=== PATIENT | male | born 1945 | race Caucasian/White ===

== ENCOUNTER 2024-09-17 10:46 | Inpatient (IN) | payer MEDICARE, SELFPAY ==
--- NOTE | ~2024-09-17 | XR_ITS ---
EXAMINATION: XR chest PICC line DATE: 09/17/2024 12:45 INDICATION: Verify PICC line placement TECHNIQUE: frontal view of the chest was obtained. COMPARISON: None FINDINGS: Right upper extremity peripherally inserted central venous catheter (PICC) tip at the high right atr ium. Airspace opacities throughout the right lung, groundglass in the upper lung and more dense jodee cons olidation in the lower lung zone consistent with likely moderate-sized posterior layering pleural eff usions with associated atelectasis and/or pneumonia. Similar opacity left mid and lower lung zone wit h retrocardiac consolidation consistent with small left pleural effusion and associated basilar atele ctasis and/or pneumonia. Calcified nodule at the right lung base and calcified mediastinal lymph node s consistent with old granulomatous disease. No pneumothorax. Heart size is normal. Plain screw fixat ion for lower cervical anterior spinal fusion. IMPRESSION: 1. Moderate-sized right and small left pleural effusions with associated atelectasis and/or pneumonia in the lower lung zones. Reviewed, dictated and finalized at location A. IMPRESSION: 1. Moderate-sized right and small left pleural effusions with associated atelec tasis and/or pneumonia in the lower lung zones.
--- NOTE | ~2024-09-17 | CT_ITS ---
CTA chest PE abdomen pel Ordering provider: Felipe Knight MD History: . Chest pain . Comparison: None. Technique: CT angiogram chest was performed following timed intravenous injection of contrast. Thin s lice axial images and reformatted coronal images were obtained. Three dimensional reformatted images of the chest were also obtained using a All[employer] workstation. Also, CT of the abdomen and pelvis was pe rformed with IV contrast. . Automated exposure control and iterative reconstruction technique were e mployed. The dose-length product was 2114.95 mGy-cm. 100 mL Omnipaque 350 was given IV. FINDINGS: CHEST: --PULMONARY ARTERIES: No pulmonary embolus. --VISUALIZED THORACIC INLET: Prominent right thyroid with extension posteriorly. Parathyroid adenoma cannot be excluded. Ultrasound evaluation advised. --MEDIASTINUM: Aorta/coronary arteries: Mild atheromatous disease. Heart/other: The heart is slightly enlarged. . Lymph nodes: No mediastinal or hilar adenopathy. Right central line is seen with the tip in the right atrium. Calcified cyst subcarinal lymph nodes ar e noted. --LUNGS: Bilateral large pleural effusion more on the right side with adjacent atelectasis. No pulmonary nodul es or masses. No pneumothorax. Patchy opacities seen in the left upper lobe and lingula suggestive of pneumonia. --MUSCULOSKELETAL: Bones: Age appropriate degenerative changes of the spine. Superficial soft tissues: The superficial soft tissues are normal. ABDOMEN/PELVIS: --MUSCULOSKELETAL: Superficial soft tissues: Fat stranding seen in the subcutaneous tissues suggestive of overload fluid . Bilateral fat containing inguinal hernias is noted. The superficial soft tissues are normal. Bones: Age appropriate degenerative changes of the spine. --UPPER ABDOMINAL ORGANS: Liver: Normal. Gallbladder: Status post cholecystectomy. Spleen: Normal. Calcified granulomas. Stomach/duodenum: Normal. Pancreas: Atrophic. Adrenals: Small left adrenal adenoma. No follow-up advised unless clinically warranted. Kidneys: Very large left mid pole cyst measuring 9.6 x 8.8 cm. Tiny cysts seen in the left kidney low er pole and left kidney mid and upper pole. Small cyst seen in the right kidney upper pole measuring 3.5 cm. Tiny cyst seen in the right kidney lower pole. Minimal fullness of the right renal pelvis is seen with no ureteric stones. --PELVIC ORGANS: The bladder is underfilled with Barros's catheter seen in the gallbladder. Thickened wall of the urinary bladder is seen. Evaluation for cystitis advised. Hyperdense area seen in the right side of the urinary bladder which may be a stone or mass or hematom a. This area measures 1.3 x 0.9 cm. Cystoscopy is advised. --BOWEL AND MESENTERY: Colon: No evidence of diverticulitis.. Contrast is seen in the colon. No evidence of appendicitis. Small Bowel: Normal. No obstruction. Peritoneum/mesentery: No free air. Minimal free fluid is seen in the pelvis and left paracolic gutter and around the spleen clinical correlation and follow-up advised. No mesenteric lymphadenopathy. --RETROPERITONEUM: Mild atheromatous disease of the abdominal aorta. No retroperitoneal lymphadenop athy. IMPRESSION: CHEST: 1. Large bilateral pleural effusion more on the right side with adjacent atelectasis. 2. No pulmonary embolism. 3. Multiple patchy groundglass opacities in the left upper lobe suggestive of pneumonia. ABDOMEN/PELVIS: 1. No evidence of appendicitis, diverticulitis or intestinal obstruction. 2. Fluid seen in the pelvis and left paracolic gutter. Clinical correlation and follow-up advised. 3. Hyperdense area in the right side of the urinary bladder. Cystoscopy is advised. The differential include hematoma versus stones versus mass. 4. Bilateral renal cysts with the largest in the left kidney midpole. 5. Atrophic pancreas. Reviewed, dictated and finalized at location A. IMPRESSION: CHEST: 1. Large bilateral pleural effusion more on the right side with adjacent atele ctasis. 2. No pulmonary embolism. 3. Multiple patchy groundglass opacities in the left upper lobe suggestive of pneumonia. ABDOMEN/PELVIS: 1. No evidence of appendicitis, diverticulitis or intestinal obstruction. 2. Fluid seen in the pelvis and left paracolic gutter. Clinical correlation an d follow-up advised. 3. Hyperdense area in the right side of the urinary bladder. Cystoscopy is adv ised. The differential include hematoma versus stones versus mass. 4. Bilateral renal cysts with the largest in the left kidney midpole. 5. Atrophic pancreas.
--- NOTE | 2024-09-17 11:08 | ECG_ITS ---
Test Date: 2024-09-17 13:57:31 Measurements Intervals [place] Rate: 95 P: 84 ME: 183 QRS: -37 QRSD: 166 T: 68 QT: 392 QTc: 495 Interpretive Statements SINUS RHYTHM LEFT AXIS DEVIATION [QRS AXIS < -30] LEFT BUNDLE BRANCH BLOCK [120+ ms QRS DURATION, 80+ ms Q/S IN V1/V2, 85+ ms R IN I/aVL/V5/V6] ABNORMAL ECG No previous ECG available for comparison Electronically Signed On 09-17-2024 16:15:22 CDT by Delvis Armenta M.D.
--- NOTE | 2024-09-17 11:44 | PC.NURSE ---
pt refusing ekg, demanding pain meds. edp made aware
--- NOTE | 2024-09-17 11:58 | PC.NURSE ---
pt is still currently refusing EKG
--- NOTE | 2024-09-17 12:02 | PC.NURSE ---
pt is also refusing XR for PICC verification.
--- NOTE | 2024-09-17 12:34 | ED_ITS ---
HPI - General Adult General Chief complaint: Chest Pain Stated complaint: cp Time Seen by Provider: 09/17/24 12:00 History of Present Illness HPI narrative: Patient is an 79-year-old male who presents to the ER with reports of left-sided chest pain. Reports he he transferred to his bed when he developed sharp left- sided chest pain. He is no longer having pain. Patient knows he is in that he is at a hospital. He cannot tell me how he transferred. He says he can get up and move on his own but patient is clearly bedbound with edema and all of his extremities, cushion boots to prevent sores, and is chronically ill with a PICC line. According to his nursing facility he has heart failure and recently had septic shock and is still getting vancomycin and Rocephin infusions. Patient provide no history about his overall health. He is particularly cantankerous and uncooperative. Initially refusing blood work and imaging. Patient was in intermediate in [facility]. Developed septic shock likely from sacral decubitus ulcer. He had surgical debridement at [facility]. He was then sent down to a intermediate here because his sister lives down here at the his POA lives in [place]. Review of Systems 2 Review of Systems: ROS unobtainable: Yes unobtainable due to mental status PMFSH Past Medical History Medical History (Updated 09/17/24 @ 18:23 by Felipe Knight MD) Gastric ulcer Type 2 diabetes mellitus Hypercholesterolemia Hypothyroidism CVA (cerebral vascular accident) BPH (benign prostatic hyperplasia) Ischemic heart disease Heart failure Exam 2 Narrative: GENERAL: Chronically ill-appearing, well-nourished, and in no acute distress. HEAD: Normocephalic, atraumatic. ENT: Mucous membranes moist. Neck: Supple CHEST: Clear to auscultation. No respiratory distress. HEART: Regular rate and rhythm. Normal peripheral pulses. ABDOMEN: Soft, nontender, nondistended. EXTREMITIES: No deformity of the extremities but is chronically weak. 4+ edema. Right upper extremity PICC line. SKIN: Warm, dry, no rash. Prominent sacral decubitus ulcer with a 1.5 cm diameter hole without using. There is stool contaminant around the area. There is bruising surrounding this ulcer as well. NEURO: Alert and oriented x1-2. Course Course Emergency Course: Admit to hospitalist service. Will need diuresis. I have been on the phone with patient's CARLOS ALBERTO Maryuri Galindo. We have discussed the patient's previous history and his current condition. She was unaware that hospice had been out to evaluate the patient last week. Patient does not have decision-making capacity. She does think having hospice evaluation would be reasonable given his advanced illness and the fact that he does not particularly like getting medical care. We will diurese him here. She does not think he would tolerate a thoracentesis. Patient is a DNR. Continue vancomycin and Rocephin. Will have care coordination consulted. Vital Signs Vital signs: Vital Signs Pulse Oximetry 97 09/17/24 15:17 Oxygen Delivery Room Air 09/17/24 15:17 Pulse Oximetry 97 09/17/24 15:17 Oxygen Delivery Room Air 09/17/24 15:17 Medical Decision Making Vital Signs Vital Signs: Vital Signs Pulse Oximetry 97 09/17/24 15:17 Oxygen Delivery Room Air 09/17/24 15:17 Pulse Oximetry 97 09/17/24 15:17 Oxygen Delivery Room Air 09/17/24 15:17 Lab Data 09/17/24 13:10 09/17/24 13:10 Labs: Lab Results 09/17/24 09/17/24 Range/Units 13:10 15:30 WBC 10.8 H (4.5-10.0) K/mm3 RBC 2.59 L (4.6-6.20) M/mm3 Hgb 7.8 L (14.0-18.0) g/dL Hct 25.5 L (42.0-52.0) % MCV 98.5 (80-100) fl MCH 30.1 (26-34) pg MCHC 30.6 L (32-36) g/dl RDW 21.0 H (11.5-14.5) % Plt Count 117 L (150-375) k/mm3 MPV 11.7 H (7.4-10.4) fl Immature Gran % (Auto) 1.9 H (0-0.5) % Neut % (Auto) 82.7 H (45.5-73.1) % Lymph % (Auto) 7.5 L (18.3-44.2) % [place] % (Auto) 6.7 (2.6-8.5) % Eos % (Auto) 0.6 (0-4.4) % Baso % (Auto) 0.6 (0.2-1.2) % Lymph # (Auto) 0.81 L (0.9-3.2) K/mm3 [place] # (Auto) 0.7 H (0.1-0.6) K/mm3 Eos # (Auto) 0.1 (0-0.3) K/mm3 Baso # (Auto) 0.1 (0.0-0.1) K/mm3 Abs Immat Gran (auto) 0.20 H (0.00-0.031) K/mm3 Absolute Neuts (auto) 8.9 H (1.3-6.7) K/mm3 Absolute Nucleated RBC 0.000 (0.0-0.012) K/mm3 Nucleated RBC % 0.0 (0.0-0.2) % % Immature Plt Fraction 7.8 (0.9-11.2) % PT 21.1 H (11.1-14.7) Seconds INR 1.8 APTT 33.8 (22.3-36.8) Seconds Sodium 132 L (137-145) mmol/L Potassium 3.4 (3.4-5.0) mmol/L Chloride 100 (98-107) mmol/L Carbon Dioxide 25 (22-30) mmol/L Anion Gap 7 (4-12) mmol/L BUN 7 L (9-20) mg/dL Creatinine 0.54 L (0.7-1.3) mg/dL Estim Creat Clear Calc Not Reportable Estimated GFR > 60 (59 - ) Glucose 120 H (65-110) mg/dL Calcium 8.0 L (8.4-10.2) mg/dL Total Bilirubin 1.1 (0.2-1.3) mg/dL AST 24 (17-59) U/L ALT 15 (6-50) U/L Alkaline Phosphatase 153 H (38-126) U/L Troponin I 0.020 0.020 (0.000-0.034) ng/mL NT-Pro-B Natriuret Pep 54006 H (19.9-100) pg/mL Total Protein 6.0 L (6.3-8.2) g/dL Albumin 2.5 L (3.5-5.1) g/dL Discharge Plan Discharge Clinical Impression: Anasarca, Pneumonia, Pleural effusion, Chronic ulcer of sacral region Patient Disposition: Still a Patient Condition: Stable Patient Language: Slovenian Follow-up/Referrals: PHYSICIAN NOT ON STAFF,NONSTAFF [Primary Care Provider] -
--- OUTSIDE RECORDS SUMMARY | 2024-09-17 12:36 | XMS_ITS | Encounter Summary ---
Author Organization [facility] Address [address] [place] [id number] Care Team Providers Care Assembler Arranger Name Role Phone Esa Guaman MD Primary Care Provider [phone] Kal Harman MD Primary Care Provider Unavailabl Marina Leonardo MD Primary Care Provider [phone] None, Provider Primary Care Provider Unavaila Aly Mosley DO Primary Care Provider [phone] Babs Wu MD Primary Care Provider [phone] Scotty Leach MD Primary Care Provider [phone] Tesfaye Fuller MD Unavailable [phone] None, Provider Primary Care Provider Unavaila Peter Dewitt MD Unavailable [phone] Ross Negro MD Primary Care Provider [phone] Saturnino KIRBY MD, Randy K Unavailable [phone] Encounter Details Date Type Department Care Team (Late st Contact Info) Description 09/10/[address] [facility] Conversion [address], [place] [address] , Generic Conversion, Social History Tobacco Use Types Packs/Day Years Used Date Smoking Tobacco: Former Sex and Gender Information Value Date Recorded Sex Assigned at Male 06/10/2024 12:49 AM PRINCIPAL TECHNICAL ARCHITECT Legal Sex Male 8:36 PM CDT Gender Identity Not on file Sexual Orientation Not on file documented as of this encounter Plan of Treatment Upcoming Encounters Date Type Department Care Team (Late st Contact Info) Description 09/21/2024 2:20 PM CDT Telemedicine [facility] [address] [place] [address] Eligio Rousseau MD [address] [place] [address] documented as of this encounter Visit Diagnoses Not on filedocumented in this encounter Additional Health Concerns Infection Onset Date Last Indicated Resolved Time COVID-19 Rule Out 07/11/2023 07/11/2023 07/11/2023 9:03 PM PRINCIPAL TECHNICAL ARCHITECT COVID-19 Rule Out 06/10/2024 06/10/2024 06/10/2024 2:08 AM PRINCIPAL TECHNICAL ARCHITECT Respiratory Rule Out 08/26/2024 08/26/2024 025 1:36 PM CDT COVID-19 Rule Out 08/26/2024 08/26/2024 08/26/2024 1:36 PM CDT documented as of this encounter Care Teams Assembler Arranger Relationship Specialty Start Date End Date Esa Guaman MD PCP - General FAMILY PRACTICE 09/08/18 09/08/18 Kal Harman MD PCP - General FAMILY PRACTICE 09/09/18 05/31/19 Marina Salas MD [address] [place] [address] PCP - General DERMATOLOGY 07/28/19 01/09/20 Michael Renee MD PCP - General 06/01/19 07/27/19 Aly Escobedo DO [address] [place] [id number] PCP - General FAMILY PRACTICE 02/24/20 02/03/21 Babs Wu MD [address] [place] [id number] PCP - General FAMILY PRACTICE 02/04/21 04/02/22 Scotty Leach MD [address] [place] [address] PCP - General INTERNAL MEDICINE 04/03/22 08/24/23 Michael Renee MD PCP - General UNKNOWN PHYSICIAN SPECIALTY 08/25/23 06/03/24 Ross Negro MD [address] [place], [place] [id number] PCP - General INTERNAL MEDICINE 06/04/24 Tesfaye Fuller MD [address] [place] [address] Consulting Physician CARDIOVASCULAR DISEASE 08/20/23 Peter Armstrong MD [address] [place] [phone] Consulting Physician CARDIOVASCULAR DISEASE 09/14/23 Benjamin Matamoros II, MD [address] [place] [address] [address] [place] [address] Consulting Physician UROLOGY 08/27/24 documented as of this encounter
--- OUTSIDE RECORDS SUMMARY | 2024-09-17 12:36 | XMS_ITS | Clinical Summary ---
Author Organization [facility] Address [address] [place] [address] Care Team Providers Care Tomography Technologist Name Role Phone Tesfaye Fuller MD Unavailable [phone] Peter Armstrong MD Unavailable [phone] Ross Mcmahan MD Primary Care Provider [phone] Saturnino KIRBY MD, Benjamin Montalvo Unavailable [phone] Allergies Active Allergy Reactions Criticality Noted Date Comments Aspirin Nausea Only 09/17/2018 Gabapentin Other (see comment) 05/30/2019 Feels it caused fatty liver. Stomach pain went away. Metformin Other (see comment) Low 10/12/2018 Stomach pain with XR 500 mg once a day. Simvastatin Swelling 10/12/2015 Medications amiodarone (PACERONE) 200 MG tablet Take 1 tablet (200 mg total) by mouth daily. 30 tablet 11 4 Active empagliflozin (JARDIANCE) 10 MG tablet Take 1 tablet (10 mg total) by mouth daily. 30 tablet 2 4 Active furosemide (LASIX) 20 MG tablet Take 1 tablet (20 mg total) by mouth daily. 4 Active levothyroxine (SYNTHROID) 50 MCG tablet Take 1 tablet (50 mcg total) by mouth every morning. Active vitamin D3 10 mcg tablet Take 1 tablet (10 mcg total) by mouth daily. Active vitamin B-12 (CYANOCOBALAMI N) 500 MCG tablet Take 1 tablet (500 mcg total) by mouth daily. Active atorvastatin (LIPITOR) 40 MG tablet Take 1 tablet (40 mg total) by mouth nightly at bedtime. 30 tablet 5 5 Active multi vitamin/minera ls (THERA-M ENHANCED) tablet Take 1 tablet by mouth daily. Active sucralfate (CARAFATE) 1 G tablet Take 1 tablet (1 g total) by mouth 4 (four) times daily before meals and nightly. 120 tablet 6 5 Active pantoprazole EC (PROTONIX) 40 MG tablet Take 1 tablet (40 mg total) by mouth 2 (two) times daily. 60 tablet 6 5 Active calcium carbonate-mary grace min D (OSCAL + D) 500-5 MG-MCG Tab tablet Take 1 tablet by mouth 2 (two) times daily. 60 tablet 2 5 Active donepezil (ARICEPT) 5 MG Tab Take 1 tablet (5 mg total) by mouth nightly at bedtime. 30 tablet 2 5 Active insulin regular (NOVOLIN R/HUMULIN R) 100 UNIT/ML injection Inject 1-8 Units into the skin 4 (four) times daily before meals and nightly. 100 mL 5 Active magnesium oxide (MAG-OX) 400 (240 Mg) MG tablet Take 1 tablet (400 mg total) by mouth 2 (two) times daily. 30 tablet 5 Active midodrine (PROAMATINE) 10 MG tablet Take 1 tablet (10 mg total) by mouth 3 (three) times daily with meals for 30 days. 90 tablet 5 10/07/19 25 Active potassium chloride CR (KLOR-CON M) 20 MEQ tablet Take 2 tablets (40 mEq total) by mouth daily. 60 tablet 5 Active pantoprazole (PROTONIX) 40 MG packet Take 1 packet by mouth 2 (two) times daily. 30 tablet 2 5 Active cefTRIAXone 2 g in sodium chloride 0.9 % SOLN 50 mLIndications: Septic shock (CMS/HCC HHS/HCC) Inject 2 g into the vein daily for 29 days. 29 Bag 5 10/07/19 25 Active vancomycin 1750 mg in IV solution 350 mL IVPB (XELLIA) Inject 350 mLs (1,750 mg total) into the vein daily for 27 days. 9450 mL 5 10/06/19 25 Active rivaroxaban (XARELTO) 20 MG Tab tablet Take 1 tablet (20 mg total) by mouth daily with supper. Take with food 30 tablet 11 4 08/23/19 25 Discontinue d(Stop Taking at Discharge) sacubitril-junior sartan (ENTRESTO) 24-26 MG tablet Take 1 tablet by mouth 2 (two) times daily. 60 tablet 1 4 09/08/19 25 Discontinue d(Stop Taking at Discharge) spironolactone (ALDACTONE) 25 MG tablet Take 1 tablet (25 mg total) by mouth daily. 30 tablet 1 4 09/08/19 25 Discontinue d(Stop Taking at Discharge) gabapentin (NEURONTIN) 100 MG capsule Take 2 capsules (200 mg total) by mouth 2 (two) times daily. 60 capsule 09/08/19 25 Discontinue d(Stop Taking at Discharge) divalproex EC (DEPAKOTE) 250 MG tablet Take 1 tablet (250 mg total) by mouth 2 (two) times daily. 60 tablet 5 08/23/19 25 Discontinue d(Stop Taking at Discharge) acetaminophen (TYLENOL) 500 MG tablet Take 1 tablet (500 mg total) by mouth every 6 (six) hours as needed for Pain. 08/27/19 Discontinue d(Error) aspirin 81 MG chewable tablet Chew 1 tablet (81 mg total) by mouth daily. 08/23/19 Discontinue d(Stop Taking at Discharge) vitamin C (ASCORBIC ACID) 500 MG tablet Take 1 tablet (500 mg total) by mouth daily. 08/27/19 Discontinue d(Error) acetaminophen (TYLENOL) 325 MG tablet Take 2 tablets (650 mg total) by mouth every 4 (four) hours as needed for Pain. 09/08/19 Discontinue d(Stop Taking at Discharge) acetaminophen (TYLENOL) 500 MG tablet Take 1 tablet (500 mg total) by mouth every 6 (six) hours as needed. 30 tablet 5 09/17/19 25 collagenase (SANTYL) ointment Apply topically 2 (two) times daily for 10 days. 15 g 5 09/17/19 25 Active Problems Problem Noted Date Diagnosed Date Septic shock ([facility]) 08/26/2024 Hypovolemic shock ([facility]) 08/16/2024 Aspiration pneumonia ([facility]) Abdominal pain 09/13/2023 Acute exacerbation of CHF (c ongestive heart failure) ([facility]) 09/05/2023 CHF exacerbation ([facility]) 08/26/2023 SOB (shortness of breath) 08/26/2023 Syncope 07/27/2023 Chronic combined systolic an d diastolic congestive heart failure ([facility]) 07/15/2023 Fall 02/17/2023 Mild anemia 02/04/2021 Prostatic hypertrophy 02/04/2021 Facial pain, acute 02/04/2021 Basal cell carcinoma (BCC) of skin of scalp and neck 09/07/2019 Nonalcoholic hepatosteatosis 06/07/2019 Vitamin D deficiency 05/30/2019 Electrocution and nonfatal e ffects of electric current, sequela 09/17/2018 Overview (09/17/2018): 1990s Essential hypertension 09/17/2018 Cerebrovascular accident (CV A), unspecified mechanism ([facility]) 09/17/2018 Overview (09/17/2018): 09/17/18 declines antiplatelet and antilipemic. Hypercholesterolemia 09/17/2018 Overview (09/17/2018): 09/17/18 declines antilipemic Type 2 diabetes mellitus wit hout complication, without long-term current use of insulin ([facility]) 09/17/2018 Resolved Problems Problem Noted Date Diagnosed Date Resolved Date PNA (pneumonia) 07/11/2023 07/12/2023 Health care maintenance 02/04/202102/01 Need for immunization against influenza 02/04/2021 02/11/2021 Screening for prostate cancer 02/04/2021 02/11/2021 Chest pain 05/30/2019 05/30/2019 Epigastric pain 05/30/2019 05/30/2019 Right upper quadrant pain 05/30/2019 Gastrointestinal hemorrhage 05/30/2019 05/30/2019 Aortic valve stenosis 05/30/20192019 Encounters Date Type Department Care Team Description 09/12/2024 Telephone [facility] [address] [place] [phone] Hasmukh Goss MD Appointment Request 09/07/2024 Travel 08/26/2024 11:58 AM CDT - 09/07/2024 12:33 PM CDT Hospital Encounter [facility] [address] [place] [address] Marino Lyn MD Bukhari, Faisal, MD Altered Mental Status Discharge Disposition: Half-Way Facility 08/26/2024 Travel 08/24/2024 1:00 PM CDT - 08/24/2024 11:59 PM CDT Hospital Encounter [facility] [address] [place] [place] [address] Ross Mcmahan MD Discharge Disposition: Home or Self Care (Routine Discharge) 08/17/2024 12:21 PM CDT Anesthesia Event [facility] [address] [place] [address] Kris Urban MD Smith, Melissa Y, NINA 08/17/2024 12:15 PM CDT - 08/17/2024 1:02 PM CDT Surgery [facility] [address] [place] [address] Marysol Jules MD EGD WITH BIOPSY PER COLD FORCEP 08/16/2024 10:22 AM CDT - 08/22/2024 1:00 PM CDT Hospital Encounter [facility] [address] [place] [address] Marino Lyn MD Bukhari, Faisal, MD Weakness Discharge Disposition: Half-Way Facility 08/16/2024 Travel 08/03/2024 2:10 PM CDT - 08/03/2024 11:59 PM CDT Hospital Encounter [facility] [address] [place] [address] Ross Mcmahan MD Discharge Disposition: Home or Self Care (Routine Discharge) 07/19/2024 1:00 PM CDT Office Visit [facility] [address] [place] [phone] Faisal Carlos MD Shortness Of Breath (PFT + Walk testing) 07/19/2024 Travel 07/08/2024 5:06 PM [employer] - 07/08/2024 11:33 PM [employer] Emergency [facility] [address] [place] [address] Scotty Tamez MD Generalized Weakness Discharge Disposition: Half-Way Facility 07/08/2024 Travel 07/04/2024 Telephone [facility] [address] [place] [phone] Kristy Garcia, SCARF GLUER Reschedule 07/01/2024 2:51 PM [employer] - 07/01/2024 11:59 PM [employer] Hospital Encounter [facility] [address] [place] [address] Ross Mcmahan MD Discharge Disposition: Home or Self Care (Routine Discharge) 06/22/2024 9:20 AM [employer] Office Visit [facility] [address] [place] [phone] Faisal Carlos MD Follow Up (Hospital fu /) 06/22/2024 Travel 06/21/2024 Scan [facility] Scanned, [facility] 06/21/[address] [phone] Faisal Carlos MD Reschedule from Last 3 Months Immunizations Immunization Administration Dates Next Due Fluzone High Dose - >Age 65 (Prefilled Syringe) 02/04/2021,03/09/2019 Influenza (Generic) 01/26/2020,03/24/2017,2012 MODERNA COVID-19 (12+) MRNA, LNP-S, PF, 100 MCG/ 0.5 ML DOSE 02/12/2021 Pneumococcal (Pneumovax 23) 04/21/2017 Td (Tenivac) preservative free 01/26/1996,1990 Zoster (Zostavax) 60760 Unt/0.65Ml 05/01/2016 Family History Medical History Relation Comments Heart Attack Father Lung Cancer Father Relation Status Comments Father Mother Social History Tobacco Use Types Packs/Day Years Used Date Smoking Tobacco: Former Cigarettes 0.5 15 1 960 - 1974 Smokeless Tobacco: Never Tobacco Cessation:Counseling Given: Yes Comments:stopped 30 years ago Alcohol Use Standard Drinks/Week Comments No 0 (1 standard drink = 0.6 oz pur e alcohol) B1300 Health Literacy Answer Date Recor ded How often do you need to hav e someone help you when you read instructions, pamphlets, or other written material from your doctor or pharmacy? Never 09/07/2023 [facility] Utilities Answer Date Recorded In the past 12 months has e [employer] gas, oil, or water iYogi threatened to shut off services in your home? No 08/29/2024 Humiliation, Afraid, Rape, and Kick questionnair e Answer Date Recorded Within the last year, have y ou been afraid of your partner or ex-partner? No 08/29/2024 Within the last year, have y ou been humiliated or emotionally abused in other ways by your partner or ex-partner? No Within the last year, have y ou been kicked, hit, slapped, or otherwise physically hurt by your partner or ex-partner? No 08/29/2024 Within the last year, have y ou been raped or forced to have any kind of sexual activity by your partner or ex-partner? No 08/29/2024 Social Connection and Isolation Panel [NHANES] A nswer Date Recorded In a typical week, how many times do you talk on the phone with family, friends, or neighbors? Patient declined 10/14/2023 How often do you get togethe r with friends or relatives? Never 10/14/2023 How often do you attend mandaen or church serv ices? Never 10/14/2023 Do you belong to any clubs o r organizations such as mandaen groups, unions, fraternal or athletic groups, or school groups? No 10/14/2023 How often do you attend meet ings of the clubs or organizations you belong to? Never 10/14/2023 Are you , , di vorced, , never , or living with a partner? 10/14/2023 AUDIT-C Answer Date Recorded Q1: How often do you have a drink containing alcohol? Never 10/14/2023 Q2: How many drinks containi ng alcohol do you have on a typical day when you are drinking? Patient does not drink Q3: How often do you have si x or more drinks on one occasion? Never 10/14/2023 Overall Financial Resource Strain (CARDIA) Answe r Date Recorded How hard is it for you to pa y for the very basics like food, housing, medical care, and heating? Not hard at all 08/29/2024 PHQ-2 Answer Date Recorded Patient Health Questionnaire-2 Score 1 06/22/2024 [facility] Occup[facility] ional Health - Occupational Stress Questionnaire Answer Date Recorded Do you feel stress - tense, restless, nervous, or anxious, or unable to sleep at night because your mind is troubled all the time - these days? Only a little 10/14/2023 Exercise Vital Sign Answer Date Recorde d On average, how many days pe r week do you engage in moderate to strenuous exercise (like a brisk walk)? 0 days 10/14/2023 On average, how many minutes do you engage in exercise at this level? 0 min 10/14/2023 Hunger Vital Sign Answer Date Recorded Within the past 12 months, y ou worried that your food would run out before you got the money to buy more. Never true 08/30/19 25 Within the past 12 months, t he food you bought just didn't last and you didn't have money to get more. Never true 08/29/2024 PRAPARE - Transportation Answer Date Re corded In the past 12 months, has l ack of transportation kept you from medical appointments or from getting medications? No 08/03 In the past 12 months, has l ack of transportation kept you from meetings, work, or from getting things needed for daily living? No 08/29/2024 Housing Stability Vital Sign Answer Jose Juan e Recorded In the last 12 months, was t here a time when you were not able to pay the mortgage or rent on time? No 07/27/2023 In the last 12 months, how many places have you lived? 1 07/27/2023 In the last 12 months, was t here a time when you did not have a steady place to sleep or slept in a chcf (including now)? No 07/27/2023 Housing Stability Vital Sign Answer Jose Juan e Recorded In the last 12 months, was t here a time when you were not able to pay the mortgage or rent on time? No 08/29/2024 In the past 12 months, how m any times have you moved where you were living? 0 08/29/2024 At any time in the past 12 m [facility], were you homeless or living in a chcf (including now)? No 08/29/2024 Sex and Gender Information Value Date Recorded Sex Assigned at Male 06/10/2024 12:49 AM [employer] Legal Sex Male 8:36 PM CDT Gender Identity Not on file Sexual Orientation Not on file Last Filed Vital Signs Vital Sign Reading Time Taken Comments Blood Pressure 127/85 09/07/2024 11:00 AM CDT Pulse 84 09/07/2024 11:00 AM CDT Temperature 35.9 C (96.6 F) 09/07/2024 11:00 AM CDT Respiratory Rate 16 09/07/2024 11:00 AM CDT Oxygen Saturation 97% 09/06/2024 4:45 PM CDT Inhaled Oxygen Concentration - - Weight 86.9 kg (191 lb 9.3 oz) 09/02/2024 3:00 A M CDT Height 177.8 cm (5' 10 ) 08/26/2024 12:04 PM CDT Body Mass Index 27.49 08/26/2024 12:04 PM CDT Plan of Treatment Upcoming Encounters Date Type Department Care Team (Late st Contact Info) Description 09/21/2024 2:20 PM CDT Telemedicine [facility]ty [address] [phone] Hasmukh Goss MD [address] [place] [address] Health Maintenance Due Date Last Done Comments Kidney Health Evaluation 1943 Diabetes: Retinopathy Eye Exam 1961 DTaP, Tdap and Td Vaccines (1 - Tdap) 01/27/1996 01/26/1996, 10/22/1990 Annual Medicare Wellness Visit 01/06/2008 Zoster Vaccines (2 of 3) 06/26/2016 05/01/2016 RSV Immunization or 60+ Years (1 - 1-dose 75+ series) 2018 Pneumococcal Vaccine: 50+ Years (2 of 2 - PCV) 04/21/2018 04/21/2017 COVID-19 Vaccine (3 - season) 2024 03/20/2021, 02/12/2021 Hemoglobin A1C 12/29/2024 07/01/2024, 05/0 09/2023, 07/12/2023, Additional history exists Lipid Panel 07/01/2025 07/01/2024, 10/0 08/2020, 02/04/2021, Additional history exists PHQ-2 (Physician [place]) Completed 06/22/2024 Meningococcal B Vaccine Aged Out No l onger eligible based on patient's age to complete this topic Meningococcal Vaccine Aged Out No yoly trell eligible based on patient's age to complete this topic RSV Immunizations Under 20 Months Aged Out No longer eligible based on patient's age to complete this topic Procedures Procedure Name Priority Date/Time Associated Diagnosis Comments POCT GLUCOSE - NEWELL DOCKED DEVICE Routine 09/07/2024 10:38 AM CDT XA PICC Today 09/07/2024 9:25 AM CDT POCT GLUCOSE - NEWELL DOCKED DEVICE Routine 09/07/2024 6:46 AM CDT POCT GLUCOSE - NEWELL DOCKED DEVICE Routine 09/06/2024 2:55 PM CDT POCT GLUCOSE - NEWELL DOCKED DEVICE Routine 09/05/2024 4:09 PM CDT XR SPEECH SWALLOW SMD (MODIFIED BARIUM SWALLOW STUDY AKA DYLAN) Routine 09/05/2024 1:33 PM CDT POCT GLUCOSE - NEWELL DOCKED DEVICE Routine 09/05/2024 11:11 AM CDT POCT GLUCOSE - NEWELL DOCKED DEVICE Routine 09/05/2024 7:28 AM CDT POCT GLUCOSE - NEWELL DOCKED DEVICE Routine 09/04/2024 8:35 PM CDT POCT GLUCOSE - NEWELL DOCKED DEVICE Routine 09/04/2024 7:43 PM CDT POCT GLUCOSE - NEWELL DOCKED DEVICE Routine 09/04/2024 7:14 AM CDT POCT GLUCOSE - NEWELL DOCKED DEVICE Routine 09/03/2024 8:03 PM CDT POCT GLUCOSE - NEWELL DOCKED DEVICE Routine 09/03/2024 3:26 PM CDT POCT GLUCOSE - NEWELL DOCKED DEVICE Routine 09/03/2024 11:00 AM CDT POCT GLUCOSE - NEWELL DOCKED DEVICE Routine 09/03/2024 7:03 AM CDT CBC W/DIFF AUTOMATED Routine 09/03/2024 4:48 AM CDT VANCOMYCIN TIMED 09/03/2024 4:48 AM CDT CREATININE Routine 09/03/2024 4:48 AM CDT COMPREHENSIVE METABOLIC PANEL Routine 09/03/2024 4:48 AM CDT POCT GLUCOSE - NEWELL DOCKED DEVICE Routine 09/02/2024 8:05 PM CDT POCT GLUCOSE - NEWELL DOCKED DEVICE Routine 09/02/2024 4:46 PM CDT POCT GLUCOSE - NEWELL DOCKED DEVICE Routine 09/02/2024 11:42 AM CDT POCT GLUCOSE - NEWELL DOCKED DEVICE Routine 09/02/2024 8:00 AM CDT MAGNESIUM Routine 09/02/2024 4:41 AM CDT COMPREHENSIVE METABOLIC PANEL Routine 09/02/2024 4:41 AM CDT POCT GLUCOSE - NEWELL DOCKED DEVICE Routine 09/01/2024 11:05 PM CDT POCT GLUCOSE - NEWELL DOCKED DEVICE Routine 09/01/2024 5:16 PM CDT POCT GLUCOSE - NEWELL DOCKED DEVICE Routine 09/01/2024 1:14 PM CDT POCT GLUCOSE - NEWELL DOCKED DEVICE Routine 09/01/2024 6:55 AM CDT MAGNESIUM Routine 09/01/2024 4:36 AM CDT COMPREHENSIVE METABOLIC PANEL Routine 09/01/2024 4:36 AM CDT POCT GLUCOSE - NEWELL DOCKED DEVICE Routine 09/01/2024 2:48 AM CDT POCT GLUCOSE - NEWELL DOCKED DEVICE Routine 08/31/2024 7:49 PM CDT POCT GLUCOSE - NEWELL DOCKED DEVICE Routine 08/31/2024 4:11 PM CDT POCT GLUCOSE - NEWELL DOCKED DEVICE Routine 08/31/2024 12:31 PM CDT POCT GLUCOSE - NEWELL DOCKED DEVICE Routine 08/31/2024 7:13 AM CDT CULTURE, BACTERIA, BLOOD Routine 08/31/2024 4:28 AM CDT COMPREHENSIVE METABOLIC PANEL Routine 08/31/2024 4:28 AM CDT CBC W/DIFF AUTOMATED Routine 08/31/2024 4:28 AM CDT VANCOMYCIN TIMED 08/31/2024 4:28 AM CDT POCT GLUCOSE - NEWELL DOCKED DEVICE Routine 08/31/2024 2:28 AM CDT POCT GLUCOSE - NEWELL DOCKED DEVICE Routine 08/30/2024 7:11 PM CDT POCT GLUCOSE - NEWELL DOCKED DEVICE Routine 08/30/2024 4:20 PM CDT USE ECHO [employer] Today 08/30/2024 3: 43 PM CDT DEBRIDEMENT Routine 08/30/2024 1:04 PM CDT POCT GLUCOSE - NEWELL DOCKED DEVICE Routine 08/30/2024 11:11 AM CDT POCT GLUCOSE - NEWELL DOCKED DEVICE Routine 08/30/2024 6:38 AM CDT PHOSPHORUS, INORGANIC PHOSPHATE Routine 08/30/2024 4:25 AM CDT MAGNESIUM Routine 08/30/2024 4:25 AM CDT COMPREHENSIVE METABOLIC PANEL Routine 08/30/2024 4:25 AM CDT CBC W/DIFF AUTOMATED Routine 08/30/2024 4:25 AM CDT POCT GLUCOSE - NEWELL DOCKED DEVICE Routine 08/30/2024 2:21 AM CDT POCT GLUCOSE - NEWELL DOCKED DEVICE Routine 08/29/2024 7:45 PM CDT POCT GLUCOSE - NEWELL DOCKED DEVICE Routine 08/29/2024 4:59 PM CDT TROPONIN, QUANT STAT 08/29/2024 12:36 PM CDT LACTIC ACID STAT 08/29/2024 12:36 PM CDT COMPREHENSIVE METABOLIC PANEL STAT 08/29/2024 12:36 PM CDT CBC W/DIFF AUTOMATED STAT 08/29/2024 12:36 PM CDT POCT GLUCOSE - NEWELL DOCKED DEVICE Routine 08/29/2024 11:46 AM CDT POCT GLUCOSE - NEWELL DOCKED DEVICE Routine 08/29/2024 6:48 AM CDT CBC W/DIFF AUTOMATED Routine 08/29/2024 4:39 AM CDT MAGNESIUM Routine 08/29/2024 4:38 AM CDT VANCOMYCIN TIMED 08/29/2024 4:35 AM CDT COMPREHENSIVE METABOLIC PANEL Routine 08/29/2024 4:35 AM CDT POCT GLUCOSE - NEWELL DOCKED DEVICE Routine 08/29/2024 2:01 AM CDT POCT GLUCOSE - NEWELL DOCKED DEVICE Routine 08/28/2024 8:58 PM CDT POCT GLUCOSE - NEWELL DOCKED DEVICE Routine 08/28/2024 4:53 PM CDT POCT GLUCOSE - NEWELL DOCKED DEVICE Routine 08/28/2024 12:10 PM CDT POCT GLUCOSE - NEWELL DOCKED DEVICE Routine 08/28/2024 8:36 AM CDT POCT GLUCOSE - NEWELL DOCKED DEVICE Routine 08/28/2024 6:01 AM CDT VANCOMYCIN TIMED 08/28/2024 4:28 AM CDT LACTIC ACID TIMED 08/28/2024 4:28 AM CDT COMPREHENSIVE METABOLIC PANEL Routine 08/28/2024 4:28 AM CDT CBC W/DIFF AUTOMATED Routine 08/28/2024 4:28 AM CDT POCT GLUCOSE - NEWELL DOCKED DEVICE Routine 08/28/2024 2:23 AM CDT POCT GLUCOSE - NEWELL DOCKED DEVICE Routine 08/27/2024 10:11 PM CDT POCT GLUCOSE - NEWELL DOCKED DEVICE Routine 08/27/2024 4:21 PM CDT LACTIC ACID TIMED 08/27/2024 12:51 PM CDT POCT GLUCOSE - NEWELL DOCKED DEVICE Routine 08/27/2024 11:40 AM CDT FIBRINOGEN Routine 08/27/2024 10:12 AM CDT LACTIC ACID TIMED 08/27/2024 7:52 AM CDT POCT GLUCOSE - NEWELL DOCKED DEVICE Routine 08/27/2024 6:26 AM CDT PROTHROMBIN TIME, VENOUS Routine 08/27/2024 4:29 AM CDT VANCOMYCIN TIMED 08/27/2024 4:29 AM CDT COMPREHENSIVE METABOLIC PANEL Routine 08/27/2024 4:29 AM CDT CBC W/DIFF AUTOMATED Routine 08/27/2024 4:29 AM CDT LACTIC ACID TIMED 08/27/2024 3:39 AM CDT POCT GLUCOSE - NEWELL DOCKED DEVICE Routine 08/27/2024 1:57 AM CDT POCT GLUCOSE - NEWELL DOCKED DEVICE Routine 08/27/2024 12:12 AM CDT LACTIC ACID TIMED 08/26/2024 10:05 PM CDT POCT GLUCOSE - NEWELL DOCKED DEVICE Routine 08/26/2024 7:45 PM CDT LACTIC ACID W REFLEX (SEPSIS) TIMED 08/26/2024 5:28 PM CDT POCT GLUCOSE - NEWELL DOCKED DEVICE Routine 08/26/2024 5:14 PM CDT BLOOD GAS, ARTERIAL LAB Add-On 08/26/2024 3:10 PM CDT AMMONIA STAT 08/26/2024 2:54 PM CDT LACTIC ACID W REFLEX (SEPSIS) TIMED 08/26/2024 2:54 PM CDT XR CHEST PORTABLE STAT 08/26/2024 2:[address] CHEST+ABD+PEL WO CON STAT 08/26/2024 2:[address] HEAD WO CON STAT 08/26/2024 2:02 PM CDT CORONAVIRUS (COVID-19) ANTIGEN STAT 08/26/2024 1:08 PM CDT INFLUENZA A & B STAT 08/26/2024 1:08 PM CDT CULTURE, BACTERIA, BLOOD Routine 08/26/2024 1:00 PM CDT TYPE & SCREEN STAT 08/26/2024 12:48 PM CDT CULTURE, BACTERIA, BLOOD Routine 08/26/2024 12:33 PM CDT THYROID STIM HORMONE TSH STAT 08/26/2024 12:33 PM CDT MAGNESIUM STAT 08/26/2024 12:33 PM CDT PRO-BRAIN NATRIURETIC PEPTIDE STAT 08/26/2024 12:33 PM CDT PARTIAL THROMBOPLASTIN TIME,PTT STAT 08/26/2024 12:33 PM CDT PROTHROMBIN TIME, VENOUS STAT 08/26/2024 12:33 PM CDT TROPONIN, QUANT STAT 08/26/2024 12:33 PM CDT COMPREHENSIVE METABOLIC PANEL STAT 08/26/2024 12:33 PM CDT LACTIC ACID W REFLEX (SEPSIS) STAT 08/26/2024 12:33 PM CDT CBC W/DIFF AUTOMATED STAT 08/26/2024 12:33 PM CDT XR CHEST PORTABLE STAT 08/26/2024 12: 21 PM CDT HC URINALYSIS AUTO W/O MICRO STAT 08/26/2024 12:18 PM CDT ECG 12-LEAD Routine 08/26/2024 12:11 PM CDT COMPREHENSIVE METABOLIC PANEL Routine 08/24/2024 10:40 AM CDT Essential hypertension Hypercholesterolemia CBC, AUTO, NO DIFF Routine 08/24/2024 10 :40 AM CDT Essential hypertension Hypercholesterolemia POCT GLUCOSE - NEWELL DOCKED DEVICE Routine 08/22/2024 11:22 AM CDT POCT GLUCOSE - NEWELL DOCKED DEVICE Routine 08/22/2024 6:14 AM CDT HEMOGLOBIN AND HEMATOCRIT Routine 08/22/2024 5:06 AM CDT POCT GLUCOSE - NEWELL DOCKED DEVICE Routine 08/21/2024 9:00 PM CDT POCT GLUCOSE - NEWELL DOCKED DEVICE Routine 08/21/2024 3:49 PM CDT POCT GLUCOSE - NEWELL DOCKED DEVICE Routine 08/21/2024 10:38 AM CDT POCT GLUCOSE - NEWELL DOCKED DEVICE Routine 08/21/2024 6:29 AM CDT CBC W/DIFF AUTOMATED Routine 08/21/2024 5:41 AM CDT POCT GLUCOSE - NEWELL DOCKED DEVICE Routine 08/20/2024 8:18 PM CDT POCT GLUCOSE - NEWELL DOCKED DEVICE Routine 08/20/2024 3:58 PM CDT POCT GLUCOSE - NEWELL DOCKED DEVICE Routine 08/20/2024 11:03 AM CDT POCT GLUCOSE - NEWELL DOCKED DEVICE Routine 08/20/2024 7:12 AM CDT CBC, AUTO, NO DIFF Routine 08/20/2024 5: 33 AM CDT POCT GLUCOSE - NEWELL DOCKED DEVICE Routine 08/19/2024 8:02 PM CDT HEMOGLOBIN AND HEMATOCRIT TIMED 08/19/2024 6:00 PM CDT POCT GLUCOSE - NEWELL DOCKED DEVICE Routine 08/19/2024 4:24 PM CDT TRANSFUSE RED BLOOD CELLS Routine 08/19/2024 2:31 PM CDT TYPE & SCREEN Routine 08/19/2024 10:40 AM CDT POCT GLUCOSE - NEWELL DOCKED DEVICE Routine 08/19/2024 10:27 AM CDT TRANSFUSE RED BLOOD CELLS Routine 08/19/2024 7:01 AM CDT POCT GLUCOSE - NEWELL DOCKED DEVICE Routine 08/19/2024 6:21 AM CDT CBC, AUTO, NO DIFF Routine 08/19/2024 5: 44 AM CDT POCT GLUCOSE - NEWELL DOCKED DEVICE Routine 08/18/2024 7:42 PM CDT POCT GLUCOSE - NEWELL DOCKED DEVICE Routine 08/18/2024 3:29 PM CDT POCT GLUCOSE - NEWELL DOCKED DEVICE Routine 08/18/2024 12:13 PM CDT POCT GLUCOSE - NEWELL DOCKED DEVICE Routine 08/18/2024 7:40 AM CDT PROTHROMBIN TIME, VENOUS Routine 08/18/2024 12:42 AM CDT POCT GLUCOSE - NEWELL DOCKED DEVICE Routine 08/17/2024 9:20 PM CDT PROTHROMBIN TIME, VENOUS Routine 08/17/2024 6:10 PM CDT POCT GLUCOSE - NEWELL DOCKED DEVICE Routine 08/17/2024 5:26 PM CDT POCT GLUCOSE - NEWELL DOCKED DEVICE Routine 08/17/2024 3:31 PM CDT UPPER GI ENDOSCOPY,BIOPSY 08/17/2024 12:06 PM CDT Anemia POCT GLUCOSE - NEWELL DOCKED DEVICE Routine 08/17/2024 11:49 AM CDT POCT GLUCOSE - NEWELL DOCKED DEVICE Routine 08/17/2024 4:27 AM CDT PROTHROMBIN TIME, VENOUS TIMED 08/17/2024 4:25 AM CDT COMPREHENSIVE METABOLIC PANEL Routine 08/17/2024 4:25 AM CDT CBC W/DIFF AUTOMATED Routine 08/17/2024 4:25 AM CDT PROTHROMBIN TIME, VENOUS STAT 08/17/2024 12:48 AM CDT PATHOLOGY Routine 08/17/2024 12:00 AM CDT POCT GLUCOSE - NEWELL DOCKED DEVICE Routine 08/16/2024 10:12 PM CDT HC MRSA AMP Routine 08/16/2024 9:55 PM CDT POCT GLUCOSE - NEWELL DOCKED DEVICE Routine 08/16/2024 8:04 PM CDT HEMOGLOBIN AND HEMATOCRIT STAT 08/16/2024 7:51 PM CDT PROTHROMBIN TIME, VENOUS STAT 08/16/2024 6:23 PM CDT TRANSFUSE RED BLOOD CELLS STAT 08/16/2024 5:06 PM CDT CTA ABD+PEL STAT 08/16/2024 3:29 PM CDT TRANSFUSE RED BLOOD CELLS STAT 08/16/2024 1:00 PM CDT TYPE & SCREEN STAT 08/16/2024 11:16 AM CDT XR CHEST PORTABLE STAT 08/16/2024 11: 08 AM CDT THYROID STIM HORMONE TSH STAT 08/16/2024 11:05 AM CDT MAGNESIUM STAT 08/16/2024 11:05 AM CDT PRO-BRAIN NATRIURETIC PEPTIDE STAT 08/16/2024 11:05 AM CDT LIPASE STAT 08/16/2024 11:05 AM CDT TROPONIN, QUANT STAT 08/16/2024 11:05 AM CDT COMPREHENSIVE METABOLIC PANEL STAT 08/16/2024 11:05 AM CDT PARTIAL THROMBOPLASTIN TIME,PTT STAT 08/16/2024 11:05 AM CDT PROTHROMBIN TIME, VENOUS STAT 08/16/2024 11:05 AM CDT CBC W/DIFF AUTOMATED STAT 08/16/2024 11:05 AM CDT ECG 12-LEAD Routine 08/16/2024 11:00 AM CDT THYROID STIM HORMONE TSH Routine 08/03/2024 11:00 AM CDT Chronic fatigue Acute on chronic systolic heart failure ([facility] HHS/HCC) Anemia, unspecified THYROXINE, FREE (FT4) Routine 08/03/2024 11:00 AM CDT Chronic fatigue Acute on chronic systolic heart failure ([facility] HHS/HCC) Anemia, unspecified IRON Routine 08/03/2024 11:00 AM CDT Chronic fatigue Acute on chronic systolic heart failure (CMS/HCC HHS/HCC) Anemia, unspecified FERRITIN Routine 08/03/2024 11:00 AM CDT Chronic fatigue Acute on chronic systolic heart failure ([facility]/HCC HHS/HCC) Anemia, unspecified CBC, AUTO, NO DIFF Routine 08/03/2024 11 :00 AM CDT Chronic fatigue Acute on chronic systolic heart failure ([facility] HHS/HCC) Anemia, unspecified XR CHEST PORTABLE STAT 07/08/2024 8:2 6 PM [address] CT ABD+PEL W CON STAT 07/08/2024 8:24 PM [address] CT HEAD WO CON STAT 07/08/2024 8:24 PM [employer]PERVIS[employer] AMMONIA STAT 07/08/2024 6:47 PM [employer]PER[employer] LACTIC ACID W REFLEX (SEPSIS) STAT 07/08/2024 6:47 PM [employer]PERVISOR [employer] DRUG SCREEN RAPID STAT 07/08/2024 6:2 4 PM [employer]PER[employer] HC URINALYSIS AUTO W/O MICRO STAT 07/08/2024 6:24 PM SUPERVISOR [employer] MAGNESIUM STAT 07/08/2024 6:24 PM SUPERVISOR [employer] TROPONIN, QUANT STAT 07/08/2024 6:24 PM SUPERVISOR [employer] COMPREHENSIVE METABOLIC PANEL STAT 07/08/2024 6:24 PM SUPERVISOR [employer] PARTIAL THROMBOPLASTIN TIME,PTT STAT 07/08/2024 6:24 PM SUPERVISOR [employer] PROTHROMBIN TIME, VENOUS STAT 07/08/2024 6:24 PM SUPERVISOR [employer] CBC W/DIFF AUTOMATED STAT 07/08/2024 6:24 PM SUPERVISOR [employer] ECG 12-LEAD Routine 07/08/2024 6:20 PM SUPERVISOR [employer] VITAMIN D, 25 OH Routine 07/01/2024 9:30 AM SUPERVISOR [employer] Acute on chronic systolic heart failure (CMS/HCC HHS/HCC) Vanishing lung (CMS/HCC HHS/HCC) Anemia, unspecified Impending cerebrovascular accident (CMS/HCC HHS/HCC) Vitamin D deficiency LIPID PANEL Routine 07/01/2024 9:30 AM SUPERVISOR [employer] Acute on chronic systolic heart failure (CMS/HCC HHS/HCC) Vanishing lung (CMS/HCC HHS/HCC) Anemia, unspecified Impending cerebrovascular accident (CMS/HCC HHS/HCC) Vitamin D deficiency COMPREHENSIVE METABOLIC PANEL Routine 07/01/2024 9:30 AM SUPERVISOR [employer]ATS Acute on chronic systolic heart failure (CMS/HCC HHS/HCC) Vanishing lung (CMS/HCC HHS/HCC) Anemia, unspecified Impending cerebrovascular accident (CMS/HCC HHS/HCC) Vitamin D deficiency THYROID STIM HORMONE TSH Routine 07/01/2024 9:30 AM SUPERVISOR [employer] Acute on chronic systolic heart failure (CMS/HCC HHS/HCC) Vanishing lung (CMS/HCC HHS/HCC) Anemia, unspecified Impending cerebrovascular accident (CMS/HCC HHS/HCC) Vitamin D deficiency THYROXINE, FREE (FT4) Routine 07/01/2024 9:30 AM SUPERVISOR [employer] Acute on chronic systolic heart failure (CMS/HCC HHS/HCC) Vanishing lung (CMS/HCC HHS/HCC) Anemia, unspecified Impending cerebrovascular accident (CMS/HCC HHS/HCC) Vitamin D deficiency CBC, AUTO, NO DIFF Routine 07/01/2024 9: 30 AM SUPERVISOR [employer]ATS Acute on chronic systolic heart failure (CMS/HCC HHS/HCC) Vanishing lung (CMS/HCC HHS/HCC) Anemia, unspecified Impending cerebrovascular accident (CMS/HCC HHS/HCC) Vitamin D deficiency HEMOGLOBIN, GLYCOSYLATED Routine 07/01/2024 9:30 AM SUPERVISOR [employer]ATS Acute on chronic systolic heart failure (CMS/HCC HHS/HCC) Vanishing lung (CMS/HCC HHS/HCC) Anemia, unspecified Impending cerebrovascular accident (CMS/HCC HHS/HCC) Vitamin D deficiency VALPROIC ACID Routine 07/01/2024 9:30 AM SUPERVISOR [employer] Acute on chronic systolic heart failure (CMS/HCC HHS/HCC) Vanishing lung (CMS/HCC HHS/HCC) Anemia, unspecified Impending cerebrovascular accident (CMS/HCC HHS/HCC) Vitamin D deficiency from Last 3 Months Results * (ABNORMAL) POCT glucose (09/07/2024 10:38 AM CDT) Only the most recent of76 resultswithin the time period is included. GLUCOSE POC 122(H) 70 - 99 MG/DL 09/07/2024 11:07 AM CDT [facility] 09/07/2024 10:3 8 AM CDT Ross Mcmahan MD POCT ORDERABLES - DEVICE Final Result [facility] [address] [place] [address], * XA PICC (09/07/2024 9:25 AM CDT) Anatomical Region Laterality Modality Cardiac Senior Chemical Engineer 09/07/2024 8:53 AM CDT Narrative 09/07/2024 3:49 PM CDT Patient Name: CHRISSY HIDALGO Date of : 1945 Account: [id number] Facility: [facility] Location: [facility] Date of Service: 09/07/2024 Cardiac Cath PREOPERATIVE DIAGNOSIS: Poor IV access, in need for long-term IV antibiotics. POSTOPERATIVE DIAGNOSIS: Poor IV access, in need for long-term IV antibiotics. PROCEDURE: Placement of PICC catheter. SURGEON: Dr. Cisse. ANESTHESIA: Local. COMPLICATIONS: None. INDICATIONS: This is an 79-year-old gentleman who is currently admitted with multiple medical problems including a large decubitus ulcer of the sacrum and a urinary tract infection. The patient has poor IV access and a PICC catheter has been requested for the provision of long-term IV antibiotics. DESCRIPTION OF PROCEDURE: After informed consent was from the patient's POA, he was taken to the engineering lab technician and placed supine on the engineering lab technician table. His right arm was prepped and draped sterilely. Under ultrasound guidance, the basilic vein was identified. The area over the planned access was anesthetized with Lidocaine and the vein was accessed using a micropuncture technique under ultrasound guidance and image of the access was archived. The guidewire was advanced centrally and a 6-Malaysian sheath was advanced over the wire. Next, a measuring wire was advanced through the venous anatomy and into the right atrium of the heart. The PICC catheter was then cut to 44 cm length based on the wire measurement and then advanced over the wire to its full extent. The wire was removed and each port of the PICC catheter aspirated and flushed without resistance. The catheter's position was confirmed on fluoroscopic imaging with the tip of the catheter located in the right atrium of the heart. The catheter was secured to the skin with Ethilon suture and a sterile dressing was applied. The patient tolerated the procedure well. Signature/Date: ESTELITA CISSE #[id number] /PRA us Estelita Cisse MD DOZER OPERATOR Final Resu lt * XR SPEECH SWALLOW SMD ONLY (09/05/2024 1:33 PM CDT) Anatomical Region Laterality Modality NA Radiographic Bailee ging 09/05/2024 2:11 PM CDT Impressions 09/05/2024 2:13 PM CDT IMPRESSION: Limited examination as the patient was uncooperative before refusing further testing. Please refer to the speech pathologist's report for further details. Ordered By: ROSS MCMAHAN Interpreted By: Neo Underwood MD, 09/05/2024 2:11 PM Narrative 09/05/2024 2:13 PM [address]T [address] [place], [place] [address] Examination: Speech swallow Exam Date: 09/05/2024 1:13 PM INDICATION: Dysphagia Fluoroscopy time: 0.6 minutes. Reference air kerma: 3.9 mGy FINDINGS: Speech swallow was performed with a speech pathologist in attendance. The patient was challenged with different consistencies of barium. The study was recorded on videotape. The patient was very and very little barium was ingested before he refused further testing. There may have been penetration with thin consistency. There is no definite aspiration noted. Procedure Note Neo Underwood MD - 09/05/[address] [place], [place] [address] Examination: Speech swallow Exam Date: 09/05/2024 1:13 PM INDICATION: Dysphagia Fluoroscopy time: 0.6 minutes. Reference air kerma: 3.9 mGy FINDINGS: Speech swallow was performed with a speech pathologist inattendance. The patient was challenged with different consistencies ofbarium. The study was recorded on videotape. The patient was very and verylittle barium was ingested before he refused further testing. There mayhave been penetration with thin consistency. There is no definiteaspiration noted. IMPRESSION: Limited examination as the patient was uncooperative beforerefusing further testing. Please refer to the speech pathologist's reportfor further details. Ordered By: ROSS MCMAHAN Interpreted By: Neo Underwood MD, 09/05/2024 2:11 PM us Ross Mcmahan MD FLUOROSCOPY Final Result * (ABNORMAL) COMPREHENSIVE METABOLIC PANEL (09/03/2024 4:48 AM CDT) Only the most recent of15 resultswithin the time period is included. SODIUM S/P/B 143 136 - 145 MMOL/L 09/03/2024 5:21 AM T [facility] POTASSIUM S/P/B 3.8 3.6 - 5.0 MMOL/L 09/03/2024 5:21 AM T [facility] CHLORIDE S/P/B 113 97 - 115 MMOL/L 09/03/2024 5:21 AM [facility] CO2 25.2 21.0 - 32.0 MMOL/L 09/03/2024 5:21 AM [facility] GLUCOSE 129(H) 70 - 99 MG/DL 09/03/2024 5:21 AM T [facility] Comment: FASTING GLUCOSE 100 TO 125 MG/DL IS CONSISTENT WITH IMPAIRED FASTING GLUCOSE. FASTING GLUCOSE >125 MG/DL IS CONSISTENT WITH DIABETES. RANDOM GLUCOSE >200 MG/DL WITH HYPERGLYCEMIC SYMPTOMS IS CONSISTENT WITH DIABETES. PER ADA GUIDELINES BUN 11 7 - 18 MG/DL 09/03/2024 5:21 AM T [facility] CREATININE S/P/B 0.53(L) 0.70 - 1.30 MG/DL 09/03/2024 5:21 AM [facility] CALCIUM S/P/B 7.6(L) 8.5 - 10.1 MG/DL 09/03/2024 5:21 AM [facility] BILIRUBIN TOTAL S/P/B 1.3(H) 0.2 - 1.0 MG/DL 09/03/2024 5:21 AM [facility] Comment: THIS ASSAY IS NOT RECOMMENDED FOR PATIENTS UNDERGOING TREATMENT WITH ELTROMBOPAG DUE TO THE POTENTIAL FOR FALSELY ELEVATED RESULTS. ALKALINE PHOSPHATASE S/P/B 131(H) 45 - 115 U/L 09/03/2024 5:21 AM [facility] AST 15 15 - 37 U/L 09/03/2024 5:21 AM [facility] ALT 33 16 - 61 U/L 09/03/2024 5:21 AM [facility] TOTAL PROTEIN S/P/B 5.0(L) 6.4 - 8.0 G/DL 09/03/2024 5:21 AM [facility] ALBUMIN S/P/B 1.9(L) 3.4 - 5.0 G/DL 09/03/2024 5:21 AM [facility] ANION GAP 4.8 2.0 - 10.0 MMOL/L 09/03/2024 5:21 AM [facility] OSMOLALITY (CALC) 297 MOSM/KG 025 5:21 AM [facility] GFR ESTIMATE >90 >90 ML/MIN/1. 73 M2 09/03/2024 5:21 AM [facility] GFR NOTES GFR REFERENCE S: 09/03/2024 5:21 AM [facility] Comment: THE ESTIMATED GFR IS CALCULATED USING THE 2020 CKD-EPI EQUATION. THE FOLLOWING CATEGORIES FOR GRADING RENAL FUNCTION ARE RECOMMENDED BY THE INTERNATIONAL SOCIETY OF NEPHROLOGY (KDIGO 2012 CLINICAL PRACTICE GUIDELINE). G1,NORMAL OR HIGH: >89 ml/min/1.73 m2 G2,MILDLY DECREASED: 60-89 ml/min/1.73 m2 G3A,MILDLY TO MODERATELY DECREASED: 45-59 ml/min/1.73 m2 G3B,MODERATELY TO SEVERELY DECREASED: 30-44 ml/min/1.73 m2 G4,SEVERELY DECREASED: 15-29 ml/min/1.73 m2 G5,KIDNEY FAILURE: <15 ml/min/1.73 m2 09/03/2024 4:48 AM CDT Ross Mcmahan MD LABORATORY Final Result [facility] [address] [place] [id number], [place] [phone] * (ABNORMAL) CBC W/DIFF AUTOMATED (09/03/2024 4:48 AM CDT) Only the most recent of12 resultswithin the time period is included. WBC 6.97 4.00 - 10.80 x10'3/uL 09/03/2024 5:09 AM CDT [facility] RBC 2.53(L) 4.50 - 6.10 x10'6/uL 09/03/2024 5:09 AM T [facility] HGB 8.0(L) 13.0 - 18.0 G/DL 09/03/2024 5:09 AM T [facility] HCT 25.0(L) 37.0 - 52.0 % 09/03/2024 5:09 AM T [facility] MCV 98.8 78.0 - 100.0 FL 09/03/2024 5:09 AM CDT [facility] MCH 31.6(H) 27.0 - 31.0 PG 09/03/2024 5:09 AM CDT [facility] MCHC 32.0(L) 33.0 - 36.0 G/DL 09/03/2024 5:09 AM [facility] RDW 18.5(H) 11.5 - 14.5 % 09/03/2024 5:09 AM [facility] PLT 77(L) 150 - 350 x10'3/uL 09/03/2024 5:09 AM [facility] MPV 13.3(H) 7.4 - 10.4 FL 09/03/2024 5:09 AM T [facility] DIFFERENTIAL TYPE AUTOMATED 09/03/2024 5:10 AM [facility] SEG NEUTROPHILS 78.1 % 5:10 AM [facility] LYMPHOCYTES 14.8 % 09/03/2024 5:10 AM [facility] MONOCYTES 4.4 % 09/03/2024 5:10 AM [facility] EOSINOPHILS 0.4 % 09/03/2024 5:10 AM [facility] BASOPHILS 0.7 % 09/03/2024 5:10 AM [facility] IMMATURE GRANS % 1.6 % 09/04/19 5:10 AM [facility] NRBC 0.0 % 09/03/2024 5:10 AM [facility] ABS. NEUTROPHILS 5.44 1.60 - 8.30 x10'3/uL 09/03/2024 5:10 AM [facility] ABS. LYMPHOCYTES 1.03 0.80 - 4.70 x10'3/uL 09/03/2024 5:10 AM [facility] ABS. MONOCYTES 0.31 0.00 - 1.50 x10'3/uL 09/03/2024 5:10 AM CDT [facility] ABS. EOSINOPHILS 0.03 0.00 - 0.40 x10'3/uL 09/03/2024 5:10 AM CDT [facility] ABS. BASOPHILS 0.05 0.00 - 0.20 x10'3/uL 09/03/2024 5:10 AM CDT [facility] ABS. IMMATURE GRANULOCYTES 0.11(H) 0.00 - 0.03 x10'3/uL 09/03/2024 5:10 AM CDT [facility] ABS. NUCLEATED RBC'S 0.00 0.00 - 0.01 x10'3/uL 09/03/2024 5:10 AM CDT [facility] 09/03/2024 4:48 AM CDT Ross Mcmahan MD LABORATORY Final Result [facility] [address] [place] [address], * Vancomycin Random Level (09/03/2024 4:48 AM CDT) Only the most recent of5 resultswithin the time period is included. VANCOMYCIN RANDOM 18.3 MCG/ML 09/03/2024 5:17 AM CDT [facility] Comment: Trough therapeutic range 10.0-20.0 MCG/ML Peak therapeutic level: <40.0 MCG/ML 09/03/2024 4:48 AM CDT Faisal Carlos MD LABORATORY Final Result [facility] [address] [place] [place] [id number], * (ABNORMAL) CREATININE (09/03/2024 4:48 AM CDT) CREATININE S/P/B 0.51(L) 0.70 - 1.30 MG/DL 09/03/2024 5:17 AM CDT [facility] GFR ESTIMATE >90 >90 ML/MIN/1. 73 M2 09/03/2024 5:17 AM CDT [facility] GFR NOTES GFR REFERENCE S: 09/03/2024 5:17 AM CDT [facility] Comment: THE ESTIMATED GFR IS CALCULATED USING THE 2020 CKD-EPI EQUATION. THE FOLLOWING CATEGORIES FOR GRADING RENAL FUNCTION ARE RECOMMENDED BY THE INTERNATIONAL SOCIETY OF NEPHROLOGY (KDIGO 2012 CLINICAL PRACTICE GUIDELINE). G1,NORMAL OR HIGH: >89 ml/min/1.73 m2 G2,MILDLY DECREASED: 60-89 ml/min/1.73 m2 G3A,MILDLY TO MODERATELY DECREASED: 45-59 ml/min/1.73 m2 G3B,MODERATELY TO SEVERELY DECREASED: 30-44 ml/min/1.73 m2 G4,SEVERELY DECREASED: 15-29 ml/min/1.73 m2 G5,KIDNEY FAILURE: <15 ml/min/1.73 m2 09/03/2024 4:48 AM CDT Faisal Carlos MD LABORATORY Final Result Performing Organization Address City/[facility]/ZIP Co de Phone Number [facility] [address] [place] [address], * MAGNESIUM (09/02/2024 4:41 AM CDT) Only the most recent of7 resultswithin the time period is included. MAGNESIUM 1.9 1.6 - 2.6 MG/DL 09/02/2024 5:24 AM CDT [facility] 09/02/2024 4:41 AM CDT Ross Mcmahan MD LABORATORY Final Result [facility] [address] [place] [address], [place] [phone] * CULTURE, BACTERIA, BLOOD (08/31/2024 4:28 AM CDT) Only the most recent of3 resultswithin the time period is included. SPEC DESCRIPTION BLOOD 08/31/2024 12:30 AM CDT [facility] SPECIAL REQUESTS NO SPECIAL REQUEST 08/31/2024 12:30 AM CDT [facility] CULTURE RESULT NO GROWTH 5 DAYS 09/05/2024 1:19 PM CDT [facility] BLOOD SPECIMEN OBTAINED FOR BLOOD CULTURE / Unknown 08/31/2024 4:28 AM CDT 08/31/2024 4:41 AM CDT us Hasmukh Goss MD MICROBIOLOGY - GENERAL ORDERAB LES Final Result Performing Organization Address [facility] Co de Phone Number [facility] [address] [place] [address], [place] [phone] [facility] [address] [place] [address], [place] [phone] * USE ECHO 2D FU LTD (08/30/2024 3:43 PM CDT) Anatomical Region Laterality Modality Cardiac Ultrasound 08/30/2024 3:19 PM CDT Narrative 08/30/2024 6:06 PM CDT Echocardiography Report Pat.Name: CHRISSY HIDALGO Pat.ID: [id number] .Date: 08/30/2024 Refer.MD: HASMUKH GOSS Exam Time: 3:19:00 PM Study Type:ECHO WITH CARDIAC DOPPLER COMP Height: 70 in Weight: 180 lb BSA: 2 m2 Age: 9 1945,79Y Sex: M BP: 119/56 Sonogrphr: Anselmo Ruiz Pat. Stat.:Inpatient Room: 2033 [facility] - 4: [id number] [id number] Reason for Study:Bacteremia History / Clinical:COPD, DM, , hx of stroke Procedures: 2D, Doppler, Color Flow Race: W ++++++++++++++++++++++++++++++++++++ SUMMARY: ++++++++++++++++++++++++++++++++++++ This is a limited study for evaluation of bacterial vegetations. The left ventricular size is mildly enlarged. The left ventricular systolic function is severely depressed. Estimated left ventricular ejection fraction is 30%. Left ventricular diastolic function is abnormal (grade 2 - pseudonormal pattern). The left atrial size is mildly enlarged. Right atrial size is moderately enlarged. Thickened aortic valve leaflets. Mild to moderate aortic valve stenosis. The peak velocity across the aortic valve measures 2.78m/sec with a peak gradient of 30mmHg and a mean gradient of 17mmHg. Gradients may be underestimated due to underlying left ventricular systolic dysfunction. Mild to moderate mitral regurgitation. Mild tricuspid regurgitation. Right ventricular systolic pressure is 40-50 mmHg suggestive of mild to moderate pulmonary hypertension. No evidence of any discrete bacterial vegetations noted. ++++++++++++++++++++++++++++++++++++ FINDINGS: ++++++++++++++++++++++++++++++++++++ LV: The left ventricular size is mildly enlarged. The left ventricular systolic function is severely depressed. Estimated left ventricular ejection fraction is 30%. There is no left ventricular hypertrophy. Left ventricular diastolic function is abnormal (grade 2 - pseudonormal pattern). The mean left atrial pressure is elevated. RV: The right ventricular size is mildly enlarged. Right ventricular systolic function is normal. IVS: Paradoxical septal motion. LA: The left atrial size is mildly enlarged. RA: Right atrial size is moderately enlarged. CASSIE: No evidence of pericardial effusion. AO: Aorta is normal. PA: Pulmonary artery not well visualized. SVn: Inferior vena cava is mildly enlarged. Inferior vena cava shows <50% collapse with respiration consistent with elevated right atrial pressure. Other: No endocarditis seen. AV: The aortic valve is trileaflet. Mild to moderate aortic valve stenosis. The peak velocity across the aortic valve measures 2.78m/sec with a peak gradient of 30mmHg and a mean gradient of 17mmHg. Trace aortic regurgitation. Moderate calcification of aortic valve leaflets. MV: Structurally normal mitral valve. Mild to moderate mitral regurgitation. No evidence of mitral valve stenosis. PV: A trace of pulmonic regurgitation. Pulmonic valve not well visualized. TV: Mild tricuspid regurgitation. Right ventricular systolic pressure is 40-50 mmHg suggestive of mild to moderate pulmonary hypertension. No evidence of tricuspid valve stenosis. There are areas of tricuspid valve leaflets malcoaption ++++++++++++++++++++++++++++++++++++ MEASUREMENTS: ++++++++++++++++++++++++++++++++++++ DOPPLER LVOT LVOT TVI 19.2 cm PSV 88 cm/s Aortic Valve AV DI 0.377 AV Forward Flow AV AC/ET 0.391 AV mnPG 17 mmHg AVpkAcRt 92843 cm/s2 AV AT 107 msec (83-118) AV TVI 50.9 cm AV ET 274 msec AV pkVel 278 cm/s (100-170)* AV pkPG 30.9 mmHg AV mnVel 186 cm/s MV Forward Flow MV pkA 84 cm/s TV Regurg Flow TV pkPG 37.5 mmHg TV pkVel 306 cm/s (30-70)+* MV Antegrade Flow Mitral Valve A 0.81 MV E Decel time 207 ms MV E/A 1.24 MV E pk Cl 104 cm/s <Electronic Signature> 08/30/2024 06:06 PM Matt Allen M.D. Procedure Note Matt Allen MD - 08/30/2024 Echocardiography Report Pat.Name: CHRISSY HIDALGO Pat.ID: [id number] St.Date: 08/30/2024 Refer.MD: HASMUKH GOSS Exam Time: 3:19:00 PM Study Type:ECHO WITH CARDIAC DOPPLER COMP Height: 70 in Weight: 180 lb BSA: 2 m2 Age: 9 1945,79Y Sex: M BP: 119/56 Sonogrphr: Anselmo Ruiz Pat. Stat.:Inpatient Room: 2033 CPT - 4: [id number] Reason for Study:Bacteremia History / Clinical:COPD, DM, , hx of stroke Procedures: 2D, Doppler, Color Flow Race: W ++++++++++++++++++++++++++++++++++++ SUMMARY: ++++++++++++++++++++++++++++++++++++ This is a limited study for evaluation of bacterial vegetations. The left ventricular size is mildly enlarged. The left ventricular systolic function is severely depressed. Estimated left ventricular ejection fraction is 30%. Left ventricular diastolic function is abnormal (grade 2 - pseudonormal pattern). The left atrial size is mildly enlarged. Right atrial size is moderately enlarged. Thickened aortic valve leaflets. Mild to moderate aortic valve stenosis. The peak velocity across the aortic valve measures 2.78m/sec with a peak gradient of 30mmHg and a mean gradient of 17mmHg. Gradients may be underestimated due to underlying left ventricular systolic dysfunction. Mild to moderate mitral regurgitation. Mild tricuspid regurgitation. Right ventricular systolic pressure is 40-50 mmHg suggestive of mild to moderate pulmonary hypertension. No evidence of any discrete bacterial vegetations noted. ++++++++++++++++++++++++++++++++++++ FINDINGS: ++++++++++++++++++++++++++++++++++++ LV: The left ventricular size is mildly enlarged. The left ventricular systolic function is severely depressed. Estimated left ventricular ejection fraction is 30%. There is no left ventricular hypertrophy. Left ventricular diastolic function is abnormal (grade 2 - pseudonormal pattern). The mean left atrial pressure is elevated. RV: The right ventricular size is mildly enlarged. Right ventricular systolic function is normal. IVS: Paradoxical septal motion. LA: The left atrial size is mildly enlarged. RA: Right atrial size is moderately enlarged. CASSIE: No evidence of pericardial effusion. AO: Aorta is normal. PA: Pulmonary artery not well visualized. SVn: Inferior vena cava is mildly enlarged. Inferior vena cava shows <50% collapse with respiration consistent with elevated right atrial pressure. Other: No endocarditis seen. AV: The aortic valve is trileaflet. Mild to moderate aortic valve stenosis. The peak velocity across the aortic valve measures 2.78m/sec with a peak gradient of 30mmHg and a mean gradient of 17mmHg. Trace aortic regurgitation. Moderate calcification of aortic valve leaflets. MV: Structurally normal mitral valve. Mild to moderate mitral regurgitation. No evidence of mitral valve stenosis. PV: A trace of pulmonic regurgitation. Pulmonic valve not well visualized. TV: Mild tricuspid regurgitation. Right ventricular systolic pressure is 40-50 mmHg suggestive of mild to moderate pulmonary hypertension. No evidence of tricuspid valve stenosis. There are areas of tricuspid valve leaflets malcoaption ++++++++++++++++++++++++++++++++++++ MEASUREMENTS: ++++++++++++++++++++++++++++++++++++ DOPPLER LVOT LVOT TVI 19.2 cm PSV 88 cm/s Aortic Valve AV DI 0.377 AV Forward Flow AV AC/ET 0.391 AV mnPG 17 mmHg AVpkAcRt 80397 cm/s2 AV AT 107 msec (83-118) AV TVI 50.9 cm AV ET 274 msec AV pkVel 278 cm/s (100-170)* AV pkPG 30.9 mmHg AV mnVel 186 cm/s MV Forward Flow MV pkA 84 cm/s TV Regurg Flow TV pkPG 37.5 mmHg TV pkVel 306 cm/s (30-70)+* MV Antegrade Flow Mitral Valve A 0.81 MV E Decel time 207 ms MV E/A 1.24 MV E pk Cl 104 cm/s <Electronic Signature> 08/30/2024 06:06 PM Matt Allen M.D. us Hasmukh Goss MD ECHO Final Result * Debridement (08/30/2024 1:04 PM CDT) Narrative Procedure Note Marysol Jules MD - 08/30/2024 1:04 PM CDT Mr. Hidalgo is seen at the request of our wound care nurse. He was attended at the bedside and with the assistance of nursing staffpositioned on his right side. The superficial eschar overlying his sacrumwas exposed and using a 10 blade night an area encompassing 18 cm wascross hatched to achieve an incisional debridement of the area. There wasno appreciable bleeding and the area was redressed. The patient tolerated the procedure well. Marysol Jules MD PROCEDURE/MINOR SURGICAL ORDERABLES Final Result * (ABNORMAL) PHOSPHORUS, INORGANIC PHOSPHATE (08/30/2024 4:25 AM CDT) PHOSPHORUS 1.7(L) 2.5 - 4.9 MG/DL 08/30/2024 5:23 AM CDT [facility] 08/30/2024 4:25 AM CDT Ross Mcmahan MD LABORATORY Final Result [facility] [address] [place] [address], * LACTIC ACID - SINGLE (08/29/2024 12:36 PM CDT) Only the most recent of6 resultswithin the time period is included. LACTIC ACID VENOUS 1.9 0.4 - 2.0 MMOL/L 08/29/2024 1:08 PM CDT [facility] 08/29/2024 12:3 6 PM CDT Faisal Carlos MD LABORATORY Final Result [facility] [address] [place] [address], * TROPONIN, QUANT (08/29/2024 12:36 PM CDT) Only the most recent of4 resultswithin the time period is included. TROPONIN I HIGH SENSITIVITY 28 0 - 78 ng/L 08/29/2024 1:09 PM CDT [facility] 08/29/2024 12:3 6 PM CDT Faisal Carlos MD LABORATORY Final Result Performing Organization Address City/[facility]/ZIP Co de Phone Number [facility] [address] [place] [address], * (ABNORMAL) FIBRINOGEN (08/27/2024 10:12 AM CDT) FIBRINOGEN 688(H) 139 - 394 MG/DL 08/27/2024 11:25 AM CDT [facility] 08/27/2024 10:1 2 AM CDT Cheo Justin MD LABORATORY Final Result Performing Organization Address [facility] Co de Phone Number [facility] [address] [place] [address], * (ABNORMAL) PROTHROMBIN TIME, VENOUS (08/27/2024 4:29 AM CDT) Only the most recent of9 resultswithin the time period is included. PROTIME 23.8(H) 9.8 - 12.5 SEC 08/27/2024 5:23 AM CDT [facility] INR 2.1 08/27/2024 5:23 AM CDT [facility] Comment: TREATMENT OR PROPHYLAXIS AGAINST: THERAPEUTIC RANGE (INR): VENOUS THROMBOSIS 2.0-3.0 PULMONARY EMBOLUS 2.0-3.0 MECHANICAL PROSTHETIC VALVES 2.5-3.5 08/27/2024 4:29 AM CDT Ross Mcmahan MD LABORATORY Final Result Performing Organization Address [facility] Co de Phone Number [facility] [address] [place] [address], * (ABNORMAL) LACTIC ACID W REFLEX (SEPSIS) (08/26/2024 5:28 PM CDT) Only the most recent of4 resultswithin the time period is included. LACTIC ACID VENOUS 6.2(HH) 0.4 - 2.0 MMOL/L 08/26/2024 6:09 PM CDT [facility] Comment: Critical Result(s) Called by: licha at: 18:08:04 on 26Aug2024 to and read back by: VEENA GRIJALVA RN 08/26/2024 5:28 PM CDT Marino Lyn MD LABORATORY Final R esult Performing Organization Address [facility] Co de Phone Number [facility] [address] [place] [address], * (ABNORMAL) ARTERIAL BLOOD GAS (08/26/2024 3:10 PM CDT) PH ARTERIAL 7.29(L) 7.35 - 7.45 08/26/2024 3:15 PM CDT [facility] PCO2 27.0(L) 35 - 45 MMHG 08/26/2024 3:15 PM CDT [facility] PO2 76.0(L) 83 - 108 MMHG 08/26/2024 3:15 PM CDT [facility] TOTAL CO2 ARTERIAL 13.8(L) 19 - 24.0 MMOL/L 08/26/2024 3:15 PM CDT [facility] BASE DEFICIT 12.0(H) 0 - 2 MMOL/L 08/26/2024 3:15 PM CDT [facility] O2 SATURATION 93(L) 94.0 - 98.0 % 08/26/2024 3:15 PM CDT [facility] BICARB ARTERIAL 13.0(L) 21.0 - 28.0 MMOL/L 08/26/2024 3:15 PM CDT [facility] JESUS TEST POSITIVE 08/26/2024 3:12 PM CDT [facility] O2 ADMIN ARTERIAL ROOM AIR 08/26/2024 3:12 PM CDT [facility] DRAW SITE ARTERIAL LT RADIAL 08/26/2024 3:12 PM CDT [facility] 08/26/2024 3:10 PM CDT Marino Lyn MD LABORATORY Final R esult [facility] [address] [place] [address], [place] [phone] * AMMONIA (08/26/2024 2:54 PM CDT) Only the most recent of2 resultswithin the time period is included. AMMONIA 25 11 - 32 UMOL/L 08/26/2024 3:22 PM CDT [facility] 08/26/2024 2:54 PM CDT Marino Lyn MD LABORATORY Final R esult Performing Organization Address City/[facility]/ZIP Co de Phone Number [facility] [address] [place] [address], [place] [phone] * XR CHEST PORTABLE (08/26/2024 2:53 PM CDT) Only the most recent of4 resultswithin the time period is included. Anatomical Region Laterality Modality Chest Radiographic Bailee ging 08/26/2024 2:56 PM CDT Impressions 08/26/2024 2:58 PM CDT IMPRESSION: A right IJ central line is noted with the tip near the cavoatrial junction. There is no definite pneumothorax noted for supine technique. Ordered By: FAISAL CARLOS Interpreted By: Neo Underwood MD, 08/26/2024 2:56 PM Narrative 08/26/2024 2:58 PM CDT [address] [place] [address] Examination: XR CHEST PORTABLE Exam time: 08/26/2024 2:45 PM Indication: Central line placement Comparison: Chest 08/26/2024 Findings: Supine AP view of the chest was obtained. A right IJ central line is noted with the tip near the cavoatrial junction. Cardiomegaly. No definite vascular congestion. Mild right basilar atelectasis or infiltrate. There is no definite pneumothorax noted for supine technique. Procedure Note Neo Underwood MD - 08/26/[address] [place] [address] Examination: XR CHEST PORTABLE Exam time: 08/26/2024 2:45 PM Indication: Central line placement Comparison: Chest 08/26/2024 Findings: Supine AP view of the chest was obtained. A right IJ centralline is noted with the tip near the cavoatrial junction. Cardiomegaly. Nodefinite vascular congestion. Mild right basilar atelectasis orinfiltrate. There is no definite pneumothorax noted for supinetechnique. IMPRESSION: A right IJ central line is noted with the tip near thecavoatrial junction. There is no definite pneumothorax noted for supinetechnique. Ordered By: FAISAL CARLOS Interpreted By: Neo Underwood MD, 08/26/2024 2:56 PM Faisal Carlos MD GENERAL IMAGING Final Result * CT HEAD WO CON (08/26/2024 2:02 PM CDT) Only the most recent of2 resultswithin the time period is included. Anatomical Region Laterality Modality Head Computed Tomogra phy 08/26/2024 2:27 PM CDT Impressions 08/26/2024 2:30 PM CDT IMPRESSION: Evaluation of the caudad aspect of the brain is limited due to metal artifact from dental amalgam. Otherwise, there is no acute intracranial abnormality noted. Ordered By: MARINO LYN Interpreted By: Neo Underwood MD, 08/26/2024 2:27 PM Narrative 08/26/2024 2:30 PM CDT [address] [place] [id number] EXAMINATION: CT HEAD WO CON EXAM DATE: 08/26/2024 1:50 PM INDICATION: Unresponsive COMPARISON: CT head 07/08/2024 TECHNIQUE: Transverse images through the head were obtained without intravenous contrast. A radiation dose lowering technique was used for this procedure, which may include, but is not limited to, dose reduction technique, automated exposure control, the use of iterative reconstruction, ALARA (As Low As Reasonably Achievable) techniques, and Image Gently techniques. FINDINGS: Evaluation of the caudad aspect of the brain is limited due to metal artifact from dental amalgam. Atrophy and white matter small vessel ischemic changes. No mass, mass effect, or midline shift. No definite acute infarct or intraparenchymal hemorrhage given the examination limitations. No abnormal extra-axial fluid collection. There is a small amount of nonspecific fluid in the mastoid air cells. There is mild sphenoid sinus mucosal thickening. Procedure Note Neo Underwood MD - 08/26/[address] [place], [place] [address] EXAMINATION: CT HEAD WO CON EXAM DATE: 08/26/2024 1:50 PM INDICATION: Unresponsive COMPARISON: CT head 07/08/2024 TECHNIQUE: Transverse images through the head were obtained without intravenouscontrast. A radiation dose lowering technique was used for this procedure,which may include, but is not limited to, dose reduction technique,automated exposure control, the use of iterative reconstruction, ALARA (AsLow As Reasonably Achievable) techniques, and Image Gently techniques. FINDINGS: Evaluation of the caudad aspect of the brain is limited due tometal artifact from dental amalgam. Atrophy and white matter small vesselischemic changes. No mass, mass effect, or midline shift. No definiteacute infarct or intraparenchymal hemorrhage given the examinationlimitations. No abnormal extra-axial fluid collection. There is a smallamount of nonspecific fluid in the mastoid air cells. There is mildsphenoid sinus mucosal thickening. IMPRESSION: Evaluation of the caudad aspect of the brain is limited due tometal artifact from dental amalgam. Otherwise, there is no acuteintracranial abnormality noted. Ordered By: MARINO LYN Interpreted By: Neo Underwood MD, 08/26/2024 2:27 PM us Marino Lyn MD CT Final R esult * CT CHEST+ABD+PEL WO CON (08/26/2024 2:02 PM CDT) Anatomical Region Laterality Modality Chest, Abdomen, Pelvis Computed Tomography 08/26/2024 2:15 PM CDT Impressions 08/26/2024 2:27 PM CDT Impression: 1. Moderate nodular opacities are noted in the lower lobes, likely infectious in etiology. There may be a few small nodular opacities in the right upper lobe as well. There is a small right pleural effusion and trace left pleural effusion. 2. Diffuse mesenteric edema. There is minimal ascites. There is diffuse subcutaneous edema which can be seen with anasarca. 3. Prostatomegaly. A Barros catheter is noted within the urinary bladder. There is increased density in the urinary bladder base, suspicious for hemorrhage. 4. There may be mild bowel wall thickening involving a portion of the jejunum in the left abdomen, nonspecific, although evaluation is essentially precluded without contrast. Enteritis or bowel ischemia cannot be excluded. Ordered By: MARINO LYN Interpreted By: Neo Underwood MD, 08/26/2024 2:15 PM Narrative 08/26/2024 2:[address] [facility] [address] [place], [place] [address] Examination: CT chest, abdomen and pelvis without IV contrast. Exam Date: 08/26/2024 1:50 PM Indication: Unresponsive. Septic shock. Comparison:CT abdomen and pelvis 08/16/2024 Technical comments: Standard technique. Dose reduction: This CT exam was performed using one or more of the following dose reduction techniques: Automated exposure control, adjustment of the mA and/or kV according to patient size, and/or use of iterative reconstruction technique. Findings: CHEST: Breathing motion artifact is noted. Moderate nodular opacities are noted in the lower lobes, likely infectious in etiology. There may be a few small nodular opacities in the right upper lobe as well. There is a small right pleural effusion and a trace left pleural effusion. No pneumothorax. There is evidence for previous granulomatous disease. The central airways are patent. The interventricular septum is hyperdense, evidence for anemia. There is no pericardial effusion. There is no definite lymphadenopathy. No acute osseous abnormality. Abdomen/pelvis: There is diffuse mesenteric edema. Minimal ascites is noted. Cholecystectomy. The liver and spleen are normal in size and contour. There is no peripancreatic fluid. No adrenal mass. There are stable bilateral renal cysts. No hydronephrosis. No ureteral calculus. The prostate is enlarged and protrudes into the urinary bladder base. A Barros catheter is noted within the urinary bladder. There is increased density in the urinary bladder base, suspicious for hemorrhage. The appendix is normal. There is no bowel obstruction or free intraperitoneal air. There is severe atherosclerosis of the abdominal aorta without aneurysm. There may be mild bowel wall thickening involving a portion of the jejunum in the left abdomen, nonspecific, although evaluation is essentially precluded without contrast. There is diffuse subcutaneous edema which can be seen with anasarca. No acute osseous abnormality. Procedure Note Neo Underwood MD - 08/26/2024 [facility] [address] [place], [place] [address] Examination: CT chest, abdomen and pelvis without IV contrast. Exam Date: 08/26/2024 1:50 PM Indication: Unresponsive. Septic shock. Comparison:CT abdomen and pelvis 08/16/2024 Technical comments: Standard technique. Dose reduction: This CT exam was performed using one or more of thefollowing dose reduction techniques: Automated exposure control,adjustment of the mA and/or kV according to patient size, and/or use ofiterative reconstruction technique. Findings: CHEST: Breathing motion artifact is noted. Moderate nodular opacities arenoted in the lower lobes, likely infectious in etiology. There may be afew small nodular opacities in the right upper lobe as well. There is asmall right pleural effusion and a trace left pleural effusion. Nopneumothorax. There is evidence for previous granulomatous disease. Thecentral airways are patent. The interventricular septum is hyperdense,evidence for anemia. There is no pericardial effusion. There is nodefinite lymphadenopathy. No acute osseous abnormality. Abdomen/pelvis: There is diffuse mesenteric edema. Minimal ascites isnoted. Cholecystectomy. The liver and spleen are normal in size andcontour. There is no peripancreatic fluid. No adrenal mass. There arestable bilateral renal cysts. No hydronephrosis. No ureteral calculus. Theprostate is enlarged and protrudes into the urinary bladder base. A Foleycatheter is noted within the urinary bladder. There is increased densityin the urinary bladder base, suspicious for hemorrhage. The appendix isnormal. There is no bowel obstruction or free intraperitoneal air. Thereis severe atherosclerosis of the abdominal aorta without aneurysm. Theremay be mild bowel wall thickening involving a portion of the jejunum inthe left abdomen, nonspecific, although evaluation is essentiallyprecluded without contrast. There is diffuse subcutaneous edema which canbe seen with anasarca. No acute osseous abnormality. Impression: 1. Moderate nodular opacities are noted in the lower lobes, likelyinfectious in etiology. There may be a few small nodular opacities in theright upper lobe as well. There is a small right pleural effusion andtrace left pleural effusion. 2. Diffuse mesenteric edema. There is minimal ascites. There is diffusesubcutaneous edema which can be seen with anasarca. 3. Prostatomegaly. A Barros catheter is noted within the urinary bladder.There is increased density in the urinary bladder base, suspicious forhemorrhage. 4. There may be mild bowel wall thickening involving a portion of thejejunum in the left abdomen, nonspecific, although evaluation isessentially precluded without contrast. Enteritis or bowel ischemia cannotbe excluded. Ordered By: MARINO LYN Interpreted By: Neo Underwood MD, 08/26/2024 2:15 PM us Marino Lyn MD CT Final R esult * CORONAVIRUS (COVID-19) ANTIGEN (08/26/2024 1:08 PM CDT) CORONAVIRUS ANTIGEN IA NEGATIVE NEGATIVE 08/26/2024 1:36 PM CDT [facility] Comment: NEGATIVE RESULTS SHOULD BE TREATED PRESUMPTIVE AND CONFIRMED WITH A MOLECULAR ASSAY IF NECESSARY FOR PATIENT MANAGEMENT. NEGATIVE RESULTS DO NOT RULE OUT COVID 19 AND SHOULD NOT BE USED THE SOLE BASIS FOR TREATMENT OR PATIENT MANAGEMENT DECISIONS, INCLUDING INFECTION CONTROL DECISIONS. NEGATIVE RESULTS SHOULD BE CONSIDERED IN THE CONTEXT OF A PATIENT'S RECENT EXPOSURES, HISTORY AND THE PRESENCE OF CLINICAL SIGNS AND SYMPTOMS CONSISTENT WITH COVID 19. THIS TEST HAS BEEN AUTHORIZED BY THE FDA UNDER AN EMERGENCY USE AUTHORIZATION (EUA) FOR USE BY AUTHORIZED LABORATORIES. SPECIMEN TYPE NASAL 08/26/2024 1:08 PM CDT [facility] NASAL NASAL STRUCTURE / Unknown 08/26/2024 1:08 PM CDT us Marino Lyn MD MICROBIOLOGY - GENERAL ORDERABLES Final Result [facility] [address] [place] [address], * INFLUENZA A & B (08/26/2024 1:08 PM CDT) SPECIMEN TYPE (INFLUENZA) NASOPHARYNGEAL SWAB 08/26/2024 1:08 PM CDT [facility] INFLUENZA A NEGATIVE NEGATIVE 08/26/2024 1:36 PM CDT [facility] INFLUENZA B NEGATIVE NEGATIVE 08/26/2024 1:36 PM CDT [facility] NASAL NASOPHARYNGEAL SWAB / Unknown 08/26/2024 1:08 PM CDT us Marino Lyn MD MICROBIOLOGY - GENERAL ORDERABLES Final Result Performing Organization Address City/[facility]/ZIP Co de Phone Number [facility] [address] [place] [address], [place] [phone] * TYPE & SCREEN (08/26/2024 12:48 PM CDT) Only the most recent of3 resultswithin the time period is included. ABO/RH A POSITIVE 08/26/2024 1:40 PM CDT [facility] ANTIBODY SCREEN NEGATIVE 08/26/2024 1:40 PM CDT [facility] SAMPLE EXPIRATION 08/29/2024,2 359 08/26/2024 1:40 PM CDT [facility] 08/26/2024 12:4 8 PM CDT Marino Lyn MD BLOOD BANK TEST ORDERAB LES Final Result [facility] [address] [place] [address], [place] [phone] * (ABNORMAL) PRO-BRAIN NATRIURETIC PEPTIDE (08/26/2024 12:33 PM CDT) Only the most recent of2 resultswithin the time period is included. Pathologist [facility] PRO-B TYPE NATRIURETIC PEPTIDE 12,266(H) <450 PG/ML 08/26/2024 1:19 PM CDT [facility] Comment: AGE INDEPENDENT: <300 PG/ML HAS A 99% NEGATIVE PREDICTIVE VALUE FOR EXCLUDING ACUTE CHF <50 YEARS: >450 PG/ML IS CONSISTENT WITH ACUTE CHF 50-75 YEARS: >900 PG/ML IS CONSISTENT WITH ACUTE CHF >75 YEARS: >1800 PG/ML IS CONSISTENT WITH ACUTE CHF IN PATIENTS WITH RENAL INSUFFICIENCY (GFR <60), >1200 PG/ML YIELDS A DIAGNOSTIC SENSITIVITY AND SPECIFICITY OF 89% AND 72% FOR ACUTE CHF. 08/26/2024 12:3 3 PM CDT Marino Lyn MD LABORATORY Final R esult Performing Organization Address City/[facility] Co de Phone Number [facility] [address] [place] [address], [place] [phone] * (ABNORMAL) PARTIAL THROMBOPLASTIN TIME,PTT (08/26/2024 12:33 PM CDT) Only the most recent of3 resultswithin the time period is included. PTT 41.5(H) 25.1 - 36.5 SEC 08/26/2024 1:04 PM CDT [facility] 08/26/2024 12:3 3 PM CDT Marino Lyn MD LABORATORY Final R esult [facility] [address] [place] [address], [place] [phone] * THYROID STIM HORMONE, TSH (08/26/2024 12:33 PM CDT) Only the most recent of4 resultswithin the time period is included. TSH 2.660 0.358 - 3.740 uIU/ML 08/26/2024 1:26 PM CDT [facility] Comment: ASSAY PERFORMED BY CHEMILUMINESCENCE METHODOLOGY USING SIEM[employer] DIM[employer]ION VISTA REAGENT. PATIENT RESULTS DETERMINED BY ASSAYS USING DIFFERENT MANUFACTURERS FOR METHODS MAY NOT BE COMPARABLE. 08/26/2024 12:3 3 PM CDT us Marino Lyn MD LABORATORY Final R esult [facility] [address] [place] [address], * (ABNORMAL) URINALYSIS (08/26/2024 12:18 PM CDT) Only the most recent of2 resultswithin the time period is included. SPECIMEN TYPE URINE CLEAN CATCH 08/26/2024 12:20 PM CDT [facility] COLOR (U) RED 08/26/2024 1:34 PM CDT [facility] TRANSPARENCY EXTREMELY TURBID 08/26/2024 1:34 PM CDT [facility] SPECIFIC GRAVITY (U) 1.016 1.002 - 1.035 08/26/2024 1:34 PM CDT [facility] U PH 7.0 5.0 - 9.0 08/26/2024 1:34 PM CDT [facility] LEUKOCYTES (U) 500(A) NEGATIVE 08/26/2024 1:34 PM CDT [facility] NITRITES NEGATIVE NEGATIVE 08/26/2024 1:34 PM CDT [facility] PROTEIN RANDOM (U) 3+(A) NEGATIVE 08/26/2024 1:34 PM CDT [facility] GLUCOSE (U) NORMAL NORMAL 08/26/2024 1:34 PM CDT [facility] KETONES MG/DL (U) TRACE(A) NEGATIVE 08/26/2024 1:34 PM CDT [facility] UROBILINOGEN NORMAL 0 - 1 EU/DL 08/26/2024 1:34 PM CDT [facility] BILIRUBIN (U) NEGATIVE NEGATIVE 08/26/2024 1:34 PM CDT [facility] BLOOD (U) 3+(A) NEGATIVE 08/26/2024 1:34 PM CDT [facility] WBC/HPF FILLED FIELD /HPF 08/26/2024 1:34 PM CDT [facility] WBC CLUMPS PRESENT 08/26/2024 1:34 PM CDT [facility] RBC/HPF FILLED FIELD /HPF 08/26/2024 1:34 PM CDT [facility] BACTERIA (U) RARE /HPF 08/26/2024 1:34 PM CDT [facility] URINE SPECIMEN OBTAINED BY CLEAN CATCH PROCEDURE / Unknown 08/26/2024 12:18 PM CDT us Marino Lyn MD URINE ORDERABLES Final Result [facility] [address] [place] [place] [id number], * ECG 12 lead (08/26/2024 12:11 PM CDT) Only the most recent of3 resultswithin the time period is included. 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1945 Requested By: MARINO LYN Order Number: [id number] Reading MD: Tommy Jonas Measurements Intervals Elysian Rate: 85 P: 0 OK: 0 QRS: -32 QRSD: 166 T: 85 QT: 396 QTc: 473 Interpretive Statements Normal sinus rhythm MARKED LEFT AXIS DEVIATION [QRS AXIS < -30] LEFT BUNDLE BRANCH BLOCK [120+ ms QRS DURATION, 80+ ms Q/S IN V1/V2, 85+ ms R IN I/aVL/V5/V6] Compared to ECG 08/16/2024 11:00:03 Left-axis deviation now present Sinus rhythm no longer present Procedure Note Tommy Jonas MD - 08/26/2024 [place] [address] [address] Test Date: 2024-08-26 Pat Name: CHRISSY HIDALGO Department: 44 Room: [place] [address] 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1945 Requested By: MARINO LYN Order Number: [id number] Reading MD: Tommy Jonas Measurements Intervals Elysian Rate: 85 P: 0 OK: 0 QRS: -32 QRSD: 166 T: 85 QT: 396 QTc: 473 Interpretive Statements Normal sinus rhythm MARKED LEFT AXIS DEVIATION [QRS AXIS < -30] LEFT BUNDLE BRANCH BLOCK [120+ ms QRS DURATION, 80+ ms Q/S IN V1/V2, 85+ms R IN I/aVL/V5/V6] Compared to ECG 08/16/2024 11:00:03 Left-axis deviation now present Sinus rhythm no longer present us Marino Lyn MD ECG ORDERABLES Final R esult [facility] * (ABNORMAL) CBC, AUTO, NO DIFF (08/24/2024 10:40 AM CDT) Only the most recent of5 resultswithin the time period is included. WBC 19.45(H) 4.00 - 10.80 x10'3/uL 08/24/2024 1:43 PM CDT [facility] RBC 4.07(L) 4.50 - 6.10 x10'6/uL 08/24/2024 1:43 PM CDT [facility] HGB 12.9(L) 13.0 - 18.0 G/DL 08/24/2024 1:43 PM CDT [facility] HCT 40.5 37.0 - 52.0 % 08/24/2024 1:43 PM CDT [facility] MCV 99.5 78.0 - 100.0 FL 08/24/2024 1:43 PM CDT [facility] MCH 31.7(H) 27.0 - 31.0 PG 08/24/2024 1:43 PM CDT [facility] MCHC 31.9(L) 33.0 - 36.0 G/DL 08/24/2024 1:43 PM CDT [facility] RDW 19.8(H) 11.5 - 14.5 % 08/24/2024 1:43 PM CDT [facility] PLT 157 150 - 350 x10'3/uL 08/24/2024 1:43 PM CDT [facility] MPV 12.9(H) 7.4 - 10.4 FL 08/24/2024 1:43 PM T [facility] 08/24/2024 10:4 0 AM CDT Ross Mcmahan MD LABORATORY Final Result [facility] [address] [email or web address] [address], * (ABNORMAL) HEMOGLOBIN AND HEMATOCRIT (08/22/2024 5:06 AM CDT) Only the most recent of3 resultswithin the time period is included. HGB 9.4(L) 13.0 - 18.0 G/DL 08/22/2024 6:02 AM CDT [facility] HCT 28.8(L) 37.0 - 52.0 % 08/22/2024 6:02 AM CDT [facility] 08/22/2024 5:06 AM CDT us Ross Mcmahan MD LABORATORY Final Result [facility] [address] [place] [address], * TRANSFUSE RED BLOOD CELLS (08/19/2024 5:47 PM CDT) Only the most recent of4 resultswithin the time period is included. us Ross Mcmahan MD NURSING TREATMENT ORDERABLES - BLOOD ADMIN Final Result * Pathology (08/17/2024 12:00 AM CDT) PATHOLOGY [facility] Department of Laboratory Medicine [address] [place] [id number] , extension [phone] Pathology Report Surgical Pathology Report Name: CHRISSY HIDALGO Specimen #: [id number] Age: 9 1945 (Age: 79) Location: [facility] Sex: M Procedure Date: 08/17/2024 Hospital #: [id number] Date Received: 08/19/2024 Date Reported: 08/22/2024 Provider: MARYSOL JULES MD Source: Stomach, biopsy Clinical History: Anemia. FINAL DIAGNOSIS: Stomach, biopsy: - Body type mucosa with mild chronic gastritis. - No evidence of intestinal metaplasia, dysplasia, or malignancy. - Helicobacter pylori organisms are not identified. Gross Description: Received in formalin, labeled with a patient label and as stomach is a 0.3 cm piece of beltre tissue. The specimen is entirely submitted in cassette 1. Gross examination (when applicable), interpretation, and sign out were performed at [facility], [address] [facility], [place] [address]. Electronically Signed Out DAINA BEVERLY MD [facility] TISSUE GASTRIC BIOPSY SPECIMEN / Unknown 08/17/2024 12:32 PM CDT Marysol Jules MD PATHOLOGY/CYTOLOGY ORDERA BLES Final Result [facility] [address] [place] [address], [place] [phone] [id number] * MRSA SCREENING (08/16/2024 9:55 PM CDT) MRSA BY PCR NASAL NOT DETECTED NOT DETECTED 08/16/2024 11:39 PM CDT [facility] NASAL STRUCTURE / Unknown 08/16/2024 9:55 PM CDT Ross Mcmahan MD MICROBIOLOGY - GENERAL ORDERAB LES Final Result Performing Organization Address City/[facility]/ZIP Co de Phone Number [facility] [address] [place] [address], [place] [phone] * CTA ABD+PEL (08/16/2024 3:29 PM CDT) Anatomical Region Laterality Modality Abdomen, Pelvis Computed Tomogra phy 08/16/2024 3:49 PM CDT Impressions 08/16/2024 4:25 PM CDT IMPRESSION: NO EVIDENCE OF ABDOMINAL AORTIC OR PROXIMAL ILIOFEMORAL ARTERIAL DISSECTION, ANEURYSM, PSEUDOANEURYSM OR PENETRATING ULCER. 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 NO EVIDENCE OF ACUTE OR ACTIVE ARTERIAL HEMORRHAGE OR CONTRAST EXTRAVASATION. AGAIN NOTED IS A POLYPOID MASS IN THE RIGHT POSTEROLATERAL URINARY BLADDER, WORRISOME FOR BLADDER MALIGNANCY. CORRELATION WITH URINALYSIS AND CYSTOSCOPY RECOMMENDED. MARKED HETEROGENEOUS PROSTATE ENLARGEMENT WITH EXTRINSIC MASS EFFECT THE BASE OF THE BLADDER. STABLE ADRENAL NODULARITY. STABLE BILATERAL RENAL CYSTS. MOTION OBSCURED NODULE OR PSEUDONODULE IN THE LEFT BASE. FOLLOW-UP CT OF THE CHEST IN 3-6 MONTHS RECOMMENDED. Ordered By: MARINO LYN Interpreted By: Roberto Sanchez MD, 08/16/2024 3:49 PM Narrative 08/16/2024 4:25 PM CDT [facility] [address] [place], [place] [address] Examination: CTA ABD+PEL Exam time: 08/16/2024 3:17 PM Clinical history: GI bleed with melena. Comparison: CT abdomen and pelvis from 07/08/2024. Technique: Pre and postcontrast CT images of the abdomen and pelvis, using the CTA protocol, was performed. Patient received 80 mL Isovue-370 with no adverse reaction. Coronal and sagittal reformatted and MIPS image data sets were generated and reviewed. A dose lowering technique was used for this procedure, which may include, but is not limited to, dose reduction technique, automated exposure control, the use of iterative reconstruction, and ALARA (As Low As Reasonably Achievable) / Image Gently techniques. Findings: There is no evidence of distal thoracic or abdominal aortic, or proximal iliofemoral arterial dissection, aneurysm, pseudoaneurysm, penetrating ulcer or significant stenosis. 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 SMA and BAILEE are patent. There is high- grade focal narrowing of the right renal artery just beyond the origin, secondary to bland plaque and estimated at 90-95%. There is also mild to moderate narrowing of the left renal artery on account of arteriosclerotic plaque, estimated at 60%. No evidence of active arterial hemorrhage or contrast extravasation. Gallbladder surgically absent. Scattered granulomatous calcifications within the otherwise unremarkable liver and spleen. No pancreatic or peripancreatic abnormality. Bilateral adrenal nodularity is prominence unchanged, likely secondary to small adenomas. Bilateral renal cysts. No hydronephrosis. No urinary tract stone. Marked enlargement of the prostate. This causes extrinsic mass effect against the base of the bladder. There is also a polypoid approximate 2.3 cm mass along the posterolateral aspect of the bladder, near the right ureteral vesicle junction. This is concerning for bladder malignancy until proven otherwise. No bowel obstruction or free air. Normal appendix. No abdominal or pelvic adenopathy or free fluid. Dependent atelectasis and small pleural effusion in the right base. Granulomatous calcification. Motion obscured 5 mm nodular pseudonodule in the left base. 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 No appreciable acute or healing fracture or destructive skeletal lesion. Procedure Note Roberto Sanchez MD - 08/16/2024 [facility] [address] [place], [place] [address] Examination: CTA ABD+PEL Exam time: 08/16/2024 3:17 PM Clinical history: GI bleed with melena. Comparison: CT abdomen and pelvis from 07/08/2024. Technique: Pre and postcontrast CT images of the abdomen and pelvis, usingthe CTA protocol, was performed. Patient received 80 mL Isovue-370 with noadverse reaction. Coronal and sagittal reformatted and MIPS image datasets were generated and reviewed. A dose lowering technique was used for this procedure, which may include,but is not limited to, dose reduction technique, automated exposurecontrol, the use of iterative reconstruction, and ALARA (As Low AsReasonably Achievable) / Image Gently techniques. Findings: There is no evidence of distal thoracic or abdominal aortic, orproximal iliofemoral arterial dissection, aneurysm, pseudoaneurysm,penetrating ulcer or significant stenosis. There is however persistentocclusion of the celiac trunk with reconstitution of the celiac and branchvessels, likely via collateralized or augmented flow from the SMAcollaterals. SMA and BAILEE are patent. There is high- grade focal narrowingof the right renal artery just beyond the origin, secondary to blandplaque and estimated at 90-95%. There is also mild to moderate narrowingof the left renal artery on account of arteriosclerotic plaque, estimatedat 60%. No evidence of active arterial hemorrhage or contrastextravasation. Gallbladder surgically absent. Scattered granulomatous calcificationswithin the otherwise unremarkable liver and spleen. No pancreatic orperipancreatic abnormality. Bilateral adrenal nodularity is prominenceunchanged, likely secondary to small adenomas. Bilateral renal cysts. Nohydronephrosis. No urinary tract stone. Marked enlargement of theprostate. This causes extrinsic mass effect against the base of thebladder. There is also a polypoid approximate 2.3 cm mass along theposterolateral aspect of the bladder, near the right ureteral vesiclejunction. This is concerning for bladder malignancy until provenotherwise. No bowel obstruction or free air. Normal appendix. No abdominalor pelvic adenopathy or free fluid. Dependent atelectasis and smallpleural effusion in the right base. Granulomatous calcification. Motionobscured 5 mm nodular pseudonodule in the left base. Moderatethoracolumbar and sacral spondylosis and pelvic arthritis. No appreciableacute or healing fracture or destructive skeletal lesion. IMPRESSION: NO EVIDENCE OF ABDOMINAL AORTIC OR PROXIMAL ILIOFEMORAL ARTERIALDISSECTION, ANEURYSM, PSEUDOANEURYSM OR PENETRATING ULCER. STABLE ARTERIOSCLEROTIC DISEASE WITH CHRONIC OCCLUSION AND RECONSTITUTIONOF THE CELIAC TRUNK AND HIGH-GRADE NARROWING OF THE RIGHT RENAL ARTERY. NO EVIDENCE OF ACUTE OR ACTIVE ARTERIAL HEMORRHAGE OR CONTRASTEXTRAVASATION. AGAIN NOTED IS A POLYPOID MASS IN THE RIGHT POSTEROLATERAL URINARYBLADDER, WORRISOME FOR BLADDER MALIGNANCY. CORRELATION WITH URINALYSIS ANDCYSTOSCOPY RECOMMENDED. MARKED HETEROGENEOUS PROSTATE ENLARGEMENT WITH EXTRINSIC MASS EFFECT THEBASE OF THE BLADDER. STABLE ADRENAL NODULARITY. STABLE BILATERAL RENAL CYSTS. MOTION OBSCURED NODULE OR PSEUDONODULE IN THE LEFT BASE. FOLLOW-UP CT OFTHE CHEST IN 3-6 MONTHS RECOMMENDED. Ordered By: MARINO LYN Interpreted By: Roberto Sanchez MD, 08/16/2024 3:49 PM [address] Lyn MD CT Final R esult * LIPASE (08/16/2024 11:05 AM CDT) LIPASE 37 13 - 75 UNITS/L 08/16/2024 11:45 AM CDT [facility] 08/16/2024 11:0 5 AM CDT Marino Lyn MD LABORATORY Final R esult Performing Organization Address City/[facility] Co de Phone Number [facility] [address] [place] [address], * THYROXINE, FREE (FT4) (08/03/2024 11:00 AM CDT) Only the most recent of2 resultswithin the time period is included. FREE T4 1.34 0.76 - 1.46 NG/DL 08/03/2024 3:29 PM CDT [facility] 08/03/2024 11:0 0 AM CDT us Ross Mcmahan MD LABORATORY Final Result Performing Organization Address [facility] Co de Phone Number [facility] [address] [place] [address], * IRON (08/03/2024 11:00 AM CDT) IRON 65 65 - 175 MCG/DL 08/03/2024 4:43 PM CDT [facility] 08/03/2024 11:0 0 AM CDT us Ross Mcmahan MD LABORATORY Final Result Performing Organization Address [facility] Co de Phone Number [facility] [address] [place] [address], * FERRITIN (08/03/2024 11:00 AM CDT) FERRITIN 267.3 26.0 - 388.0 NG/ML 08/03/2024 4:43 PM CDT [facility] 08/03/2024 11:0 0 AM CDT us Ross Mcmahan MD LABORATORY Final Result [facility] [address] [place] [address], * CT ABD+PEL W CON (07/08/2024 8:24 PM [employer]) Anatomical Region Laterality Modality Abdomen Computed Tomogra phy 07/08/2024 8:40 PM [employer] Impressions 07/08/2024 8:48 PM [employer] IMPRESSION: 1. There is masslike nodularity and thickening along the posterior aspect of the urinary bladder. This is worrisome for bladder malignancy. Further evaluation with cystoscopy is recommended. 2. The prostate gland is enlarged and indents the base of the urinary bladder. The prostate is heterogeneous. Clinical correlation for prostate cancer is recommended. 3. No biliary ductal dilatation. 4. Stable tiny left adrenal adenoma. 5. Cardiomegaly. Partially imaged right pleural effusion. Small left pleural effusion. Referred By: Interpreted By: Scotty Chaves DO, 07/08/2024 8:40 PM Narrative 07/08/2024 8:48 PM [employer] [facility] [address] [place], [place] [address] EXAMINATION: CT abdomen/pelvis with contrast HISTORY: Jaundice. Weakness. Increased bilirubin. COMPARISON: CT abdomen/pelvis 10/14/2023. TECHNIQUE: Axial CT images of the abdomen and pelvis after the uneventful intravenous administration of 100 mL of Isovue-370 given through the right antecubital fossa. Sagittal and coronal reformatted image sets. A dose lowering technique was used for this procedure, which may include, but is not limited to, dose reduction technique, automated exposure control, the use of degenerative reconstruction, and ALARA/image gently techniques. Any follow-up recommendations contained in this report for incidentally detected pulmonary nodules were made according to current recommended guidelines based at a minimum on nodule size AND patient risk factors. FINDINGS: Lower chest: The heart is enlarged. Partially imaged right pleural effusion. Small left pleural effusion. There is dependent atelectasis within the lungs. Benign calcified pulmonary nodule. Upper abdomen: There is motion artifact which limits detailed evaluation. The liver is normally sized. No evidence of hepatic mass. The gallbladder is surgically absent. No biliary ductal dilatation. No acute-appearing pancreatic abnormalities. The spleen size is borderline. There are multiple benign calcified splenic granulomas. Stable tiny left adrenal adenoma. Kidneys: The kidneys enhance symmetrically. There are simple benign-appearing bilateral renal cysts, no imaging follow-up is necessary per consensus criteria. No hydronephrosis or nephrolithiasis. No urolithiasis. Vascular: There is atherosclerotic calcification of the aorta which remains normal caliber. Bowel/mesentery: There is no bowel obstruction. No definite colonic or enteric inflammatory changes. The appendix is normal caliber. No herniated bowel loops. No acute appearing gastric abnormalities. Pelvis: There is masslike nodularity and thickening along the posterior aspect of the urinary bladder, axial series 4 image 120. This is worrisome for bladder malignancy. Further evaluation with cystoscopy is recommended. The prostate gland is enlarged and indents the base of the urinary bladder. The prostate is heterogeneous. Clinical correlation for prostate cancer is recommended. There are pelvic phleboliths. Trace free fluid or stranding within the posterior aspect of the pelvis. There are bilateral fat-containing inguinal hernias. No definite lymphadenopathy. Other findings: None. Osseous: There are multisite degenerative changes throughout the spine and the pelvis. No acute osseous abnormalities are identified. Procedure Note Scotty Chaves DO - 07/08/2024 [facility] [address] [place], [place] [address] EXAMINATION: CT abdomen/pelvis with contrast HISTORY: Jaundice. Weakness. Increased bilirubin. COMPARISON: CT abdomen/pelvis 10/14/2023. TECHNIQUE: Axial CT images of the abdomen and pelvis after the uneventful intravenousadministration of 100 mL of Isovue-370 given through the right antecubitalfossa. Sagittal and coronal reformatted image sets. A dose lowering technique was used for this procedure, which may include,but is not limited to, dose reduction technique, automated exposurecontrol, the use of degenerative reconstruction, and ALARA/image gentlytechniques. Any follow-up recommendations contained in this report for incidentallydetected pulmonary nodules were made according to current recommendedguidelines based at a minimum on nodule size AND patient risk factors. FINDINGS: Lower chest: The heart is enlarged. Partially imaged right pleuraleffusion. Small left pleural effusion. There is dependent atelectasiswithin the lungs. Benign calcified pulmonary nodule. Upper abdomen: There is motion artifact which limits detailed evaluation.The liver is normally sized. No evidence of hepatic mass. Thegallbladder is surgically absent. No biliary ductal dilatation. Noacute-appearing pancreatic abnormalities. The spleen size is borderline.There are multiple benign calcified splenic granulomas. Stable tiny leftadrenal adenoma. Kidneys: The kidneys enhance symmetrically. There are simplebenign-appearing bilateral renal cysts, no imaging follow-up is necessaryper consensus criteria. No hydronephrosis or nephrolithiasis. Nourolithiasis. Vascular: There is atherosclerotic calcification of the aorta whichremains normal caliber. Bowel/mesentery: There is no bowel obstruction. No definite colonic orenteric inflammatory changes. The appendix is normal caliber. Noherniated bowel loops. No acute appearing gastric abnormalities. Pelvis: There is masslike nodularity and thickening along the posterioraspect of the urinary bladder, axial series 4 image 120. This isworrisome for bladder malignancy. Further evaluation with cystoscopy isrecommended. The prostate gland is enlarged and indents the base of theurinary bladder. The prostate is heterogeneous. Clinical correlation forprostate cancer is recommended. There are pelvic phleboliths. Trace freefluid or stranding within the posterior aspect of the pelvis. There arebilateral fat-containing inguinal hernias. No definite lymphadenopathy. Other findings: None. Osseous: There are multisite degenerative changes throughout the spine andthe pelvis. No acute osseous abnormalities are identified. IMPRESSION: 1. There is masslike nodularity and thickening along the posterior aspectof the urinary bladder. This is worrisome for bladder malignancy. Furtherevaluation with cystoscopy is recommended. 2. The prostate gland is enlarged and indents the base of the urinarybladder. The prostate is heterogeneous. Clinical correlation for prostatecancer is recommended. 3. No biliary ductal dilatation. 4. Stable tiny left adrenal adenoma. 5. Cardiomegaly. Partially imaged right pleural effusion. Small leftpleural effusion. Referred By: Interpreted By: Scotty Chaves DO, 07/08/2024 8:[address] Tamez MD CT Final Result * DRUG SCREEN RAPID (07/08/2024 6:24 PM [employer]) Pathologist [facility] CANNABINOIDS SCREEN (U) NEGATIVE 07/08/2024 7:33 PM [facility] PHENCYCLIDINE PCP (U) NEGATIVE 07/08/2024 7:33 PM [facility] COCAINE METABOLITES (U) NEGATIVE 07/08/2024 7:33 PM [facility] METHAMPHETAMINE (U) NEGATIVE 07/08 7:33 PM [facility] OPIATE SCREEN (U) NEGATIVE 025 7:33 PM [facility] AMPHETAMINE (U) NEGATIVE 7:33 PM [facility] BENZODIAZEPINES SCREEN (U) NEGATIVE 07/08/2024 7:33 PM [facility] TRICYCLIC ANTIDEPRESSANT SCREEN (U) NEGATIVE 07/08/2024 7:33 PM [facility] METHADONE (U) NEGATIVE 07/08/2024 7:33 PM [facility] BARBITURATES SCREEN (U) NEGATIVE 07/08/2024 7:33 PM [facility] OXYCODONE SCREEN (U) NEGATIVE 07/08/2024 7:33 PM [facility] BUPRENORPHINE SCREEN (U) NEGATIVE 07/08/2024 7:33 PM [facility] Comment: Cutoff concentrations for drug classes are: Drug Classes Cutoff Concentrations Cannabinoids 50 ng/mL Phencyclidine 25 ng/mL Cocaine 150 ng/mL Methamphetamines 500 ng/mL Opiates 100 ng/mL Amphetamine 500 ng/mL Benzodiazepines 150 ng/mL Tricyclics 300 ng/mL Methadone 200 ng/mL Barbiturates 200 ng/mL Oxycodone 100 ng/mL Buprenorphine 10 ng/mL Drug screening results should be used for medical purposes only. Further confirmatory testing is recommended for positive screening results. Contact Lab within 24 hours to add on confirmatory testing. URINE SPECIMEN / Unknown 07/08/2024 6:24 PM [employer] Scotty Tamez MD URINE ORDERABLES Final Result Performing Organization Address [facility]/ZIP Co de Phone Number [facility] [address] [place] [address], * (ABNORMAL) HEMOGLOBIN, GLYCOSYLATED (07/01/2024 9:30 AM [employer]) HGB A1C 6.1(H) <5.7 % 07/01/2024 4:37 PM [facility] ESTIMATED AVG GLUCOSE 128(H) 74 - 114 MG/DL 07/01/2024 4:37 PM [facility] 07/01/2024 9:30 AM [employer] Ross Mcmahan MD LABORATORY Final Result Performing Organization Address [facility]/ZIP Co de Phone Number [facility] [address] [place] [address], * (ABNORMAL) LIPID PANEL (07/01/2024 9:30 AM [employer]) CHOLESTEROL 77 MG/DL 07/01/2024 4:11 PM [facility] Comment:DESIRABLE: <200 TRIGLYCERIDES 101 MG/DL 07/01/2024 4:11 PM [facility] Comment:<150 NORMAL HDL 27(L) >39 MG/DL 07/01/2024 4:11 PM [facility] LDL-C 30 MG/DL 07/01/2024 4:11 PM [facility] [facility] Comment:<100 OPTIMAL VLDL CALCULATION 20 MG/DL 07/01/19 4:11 PM [facility] Comment:REFERENCE RANGE NOT ESTABLISHED CHOL/HDL RATIO 2.9 07/01/2024 4:11 PM [facility] Comment:REFERENCE RANGE NOT ESTABLISHED LDL/HDL 1.0 07/01/2024 4:11 PM [facility] Comment:REFERENCE RANGE NOT ESTABLISHED NON HDL CHOLESTEROL 50 MG/DL 07/01/2024 4:11 PM [facility] Comment:REFERENCE RANGE NOT ESTABLISHED 07/01/2024 9:30 AM SUPERVISOR CURED MEATS us Ross Mcmahan MD LABORATORY Final Result [facility] [address] [place] [address], * (ABNORMAL) VALPROIC ACID (07/01/2024 9:30 AM SUPERVISOR CURED MEATS) VALPROIC ACID 7.0(L) 50.0 - 100.0 MCG/ML 07/01/2024 4:09 PM [facility] 07/01/2024 9:30 AM SUPERVISOR CURED MEATS us Ross Mcmahan MD LABORATORY Final Result Performing Organization Address City/[facility]/ZIP Co de Phone Number [facility] [address] [place] [address], * VITAMIN D, 25 OH (07/01/2024 9:30 AM SUPERVISOR [employer]ED MEATS) VITAMIN D 25 HYDROXY S/P/B 25.4 NG/ML 07/01/2024 4:22 PM [facility] Comment: <10 ng/mL (Severe deficiency) 10 TO 19 ng/mL (Mild to Moderate deficiency) 20 TO 50 ng/mL (Optimum levels) 51 TO 80 ng/mL (Increased risk of hypercalciuria) >80 ng/mL (Toxicity possible) 07/01/2024 9:30 AM SUPERVISOR [employer] Ross Mcmahan MD LABORATORY Final Result [facility] [address] 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 Advance Directives and Living Will 07/11/2024 1:20 PM POLST 06/17/24 Power of Test Center Administrator 06/15/2024 10:42 AM POA FINANCIAL 01/15/24 Power of Test Center Administrator 06/10/2024 1:08 AM Legal Documents 09/17/2018 [employer] body donation card * DNR (Latest Code Status on File) Date Activated Date Inactivated Comments 08/26/2024 7:28 PM 09/07/2024 2:38 PM * Full Code Date Activated Date Inactivated Comments 08/16/2024 6:02 PM 08/22/2024 3:05 PM * Full Code Date Activated Date Inactivated Comments 06/10/2024 6:05 AM 06/14/2024 12:57 PM * DNR Date Activated Date Inactivated Comments 10/14/2023 7:47 PM 10/23/2023 3:08 PM * DNR Date Activated Date Inactivated Comments 09/13/2023 3:54 PM 09/14/2023 4:55 PM Care Teams Tomography Technologist Relationship Specialty Start Date End Date Ross Mcmahan MD [address] [place] [address] PCP - General INTERNAL MEDICINE 06/04/24 Tesfaye Fuller MD [address] [place] [address] Consulting Physician CARDIOVASCULAR DISEASE 08/20/23 Peter Armstrong MD [address] [place] [phone] Consulting Physician CARDIOVASCULAR DISEASE 09/14/23 Benjamin Matamoros II, MD [address] [place] [address] Consulting Physician UROLOGY 08/27/24
--- OUTSIDE RECORDS SUMMARY | 2024-09-17 12:36 | XMS_ITS | Encounter Summary ---
Author Organization [facility] Address [address] [place] [address] Care Team Providers Care Orthotics Prosthetics Technician Name Role Phone Kal Harman MD Primary Care Provider UnavailMarina Sandhu MD Primary Care Provider [phone] None, Provider Primary Care Provider Unavaila Aly Mosley DO Primary Care Provider [phone] Babs Wu MD Primary Care Provider Scotty Leach MD Primary Care Provider [phone] Tesfaye Fuller MD Unavailable [phone], Provider Primary Care Provider Unavaila Peter Dewitt MD Unavailable [phone] Ross Negro MD Primary Care Provider [phone] Saturnino KIRBY MD, Randy K Unavailable [phone] Encounter Details Date Type Department Care Team (Late st Contact Info) Description 10/09/[address] [facility] Conversion [address] [place], [place] [address] , Generic Conversion, Social History Tobacco Use Types Packs/Day Years Used Date Smoking Tobacco: Former Smokeless Tobacco: Never Alcohol Use Standard Drinks/Week Comments No 0 (1 standard drink = 0.6 oz pur e alcohol) AUDIT-C Answer Date Recorded Frequency of Alcohol Consumption Never 09/17/2018 Average Number of Drinks Not on file 019 Frequency of Binge Drinking Not on file 09/01 Sex and Gender Information Value Date Recorded Sex Assigned at Male 06/10/2024 12:49 AM HOGSHEAD HAND Legal Sex Male 8:36 PM CDT Gender Identity Not on file Sexual Orientation Not on file documented as of this encounter Plan of Treatment Upcoming Encounters Date Type Department Care Team (Late st Contact Info) Description 09/21/2024 2:20 PM CDT Telemedicine [facility] [address] [place] [phone] Eligio Rousseau MD [address] [place] [address] documented as of this encounter Visit Diagnoses Not on filedocumented in this encounter Additional Health Concerns Infection Onset Date Last Indicated Resolved Time COVID-19 Rule Out 07/11/2023 07/11/2023 07/11/2023 9:03 PM HOGSHEAD HAND COVID-19 Rule Out 06/10/2024 06/10/2024 06/10/2024 2:08 AM HOGSHEAD HAND Respiratory Rule Out 08/26/2024 08/26/2024 025 1:36 PM CDT COVID-19 Rule Out 08/26/2024 08/26/2024 08/26/2024 1:36 PM CDT documented as of this encounter Care Teams Orthotics Prosthetics Technician Relationship Specialty Start Date End Date Kal Harman MD PCP - General FAMILY PRACTICE 09/09/18 05/31/19 Marina Salas MD [address] [place] [address] PCP - General DERMATOLOGY 07/28/19 01/09/20 Michael Renee MD PCP - General 06/01/19 07/27/19 Aly Escobedo DO [address] [place] [phone] PCP - General FAMILY PRACTICE 02/24/20 02/03/21 Babs Wu MD [address] [place] [phone] PCP - General FAMILY PRACTICE 02/04/21 04/02/22 Scotty Leach MD [address] [place] [address] PCP - General INTERNAL MEDICINE 04/03/22 08/24/23 Michael Renee MD PCP - General UNKNOWN PHYSICIAN SPECIALTY 08/25/23 06/03/24 Ross Negro MD [address] [place], [place] [id number] PCP - General INTERNAL MEDICINE 06/04/24 Tesfaye Fuller MD [address] [place] [address] Consulting Physician CARDIOVASCULAR DISEASE 08/20/23 Peter Armstrong MD [address] [place] [phone] Consulting Physician CARDIOVASCULAR DISEASE 09/14/23 Benjamin Matamoros II, MD [address] [facility] [address] [place] [address] Consulting Physician UROLOGY 08/27/24 documented as of this encounter
--- OUTSIDE RECORDS SUMMARY | 2024-09-17 12:36 | XMS_ITS | Encounter Summary ---
Author Organization [facility] Address [address] [place] [address] Care Team Providers Care Leisure Travel Agent Name Role Phone Esa Guaman MD Primary Care Provider [phone] Kal Harman MD Primary Care Provider Unavailabl Marina Leonardo MD Primary Care Provider + [phone] None, Provider Primary Care Provider Unavaila Aly Mosley DO Primary Care Provider [phone] Babs Wu MD Primary Care Provider Scotty Leach MD Primary Care Provider [phone] Tesfaye Fuller MD Unavailable [phone] None, Provider Primary Care Provider Unavaila Peter Dewitt MD Unavailable [phone] Ross Negro MD Primary Care Provider [phone] Saturnino KIRBY MD, Randy K Unavailable [phone] Encounter Details Date Type Department Care Team (Late st Contact Info) Description 12/03/[address] 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 [address] [place] [address] Eligio Rousseau MD [address] [place] [address] documented as of this encounter Visit Diagnoses Not on filedocumented in this encounter Additional Health Concerns Infection Onset Date Last Indicated Resolved Time COVID-19 Rule Out 07/11/2023 07/11/2023 07/11/2023 9:03 PM HONEY PRODUCER COVID-19 Rule Out 06/10/2024 06/10/2024 06/10/2024 2:08 AM HONEY PRODUCER Respiratory Rule Out 08/26/2024 08/26/2024 025 1:36 PM CDT COVID-19 Rule Out 08/26/2024 08/26/2024 08/26/2024 1:36 PM CDT documented as of this encounter Care Teams Leisure Travel Agent Relationship Specialty Start Date End Date Esa Guaman MD PCP - General FAMILY PRACTICE 09/08/18 09/08/18 Kal Harman MD PCP - General FAMILY PRACTICE 09/09/18 05/31/19 Marina Salas MD [address] [place] [address] PCP - General DERMATOLOGY 07/28/19 01/09/20 Michael Renee MD PCP - General 06/01/19 07/27/19 Aly Escobedo DO [address] [place] [phone] PCP - General FAMILY PRACTICE 02/24/20 02/03/21 Babs Wu MD [address] [place] [phone] PCP - General FAMILY PRACTICE 02/04/21 04/02/22 Scotty Leach MD [address] [place] [address] PCP - General INTERNAL MEDICINE 04/03/22 08/24/23 Michael Renee MD PCP - General UNKNOWN PHYSICIAN SPECIALTY 08/25/23 06/03/24 Ross Negro MD [address] [place], [place] [id number] PCP - General INTERNAL MEDICINE 06/04/24 Tesfaye Fuller MD [address] [place] [address] Consulting Physician CARDIOVASCULAR DISEASE 08/20/23 Peter Armstrong MD [address] [place] [phone] Consulting Physician CARDIOVASCULAR DISEASE 09/14/23 Benjamin Matamoros II, MD [address] [place] [address] [address] [place] [address] Consulting Physician UROLOGY 08/27/24 documented as of this encounter
[2024-09-17 13:25] LABS: Basophils Absolute Auto 0.1 K/mm3 (0.0-0.1); Basophils Percent Auto 0.6 % (0.2-1.2); Eosinophils Absolute Auto 0.1 K/mm3 (0-0.3); Eosinophils Percent Auto 0.6 % (0-4.4); Hematocrit 25.5 % (42.0-52.0); Hemoglobin 7.8 g/dL (14.0-18.0); Immature Granulocyte Percent A 1.9 % (0-0.5); Immature Platelet Fraction Pct 7.8 % (0.9-11.2); Lymphocytes Absolute Auto 0.81 K/mm3 (0.9-3.2); Lymphocytes Percent Auto 7.5 % (18.3-44.2); Mean Corpuscular HGB Conc 30.6 g/dl (32-36); Mean Corpuscular Hemoglobin 30.1 pg (26-34); Mean Corpuscular Volume 98.5 fl (80-100); Mean Platelet Volume 11.7 fl (7.4-10.4); Monocytes Absolute Auto 0.7 K/mm3 (0.1-0.6); Monocytes Percent Auto 6.7 % (2.6-8.5); Neutrophils Absolute Auto 8.9 K/mm3 (1.3-6.7); Neutrophils Percent Auto 82.7 % (45.5-73.1); Platelet Count Result 117 k/mm3 (150-375); Red Blood Count 2.59 M/mm3 (4.6-6.20); White Blood Count 10.8 K/mm3 (4.5-10.0)
[2024-09-17 13:33] LABS: Alanine Aminotransferase 15 U/L (6-50); Albumin Level 2.5 g/dL (3.5-5.1); Alkaline Phosphatase 153 U/L (38-126); Anion Gap 7 mmol/L (4-12); Aspartate Amino Transferase 24 U/L (17-59); Bilirubin,Total 1.1 mg/dL (0.2-1.3); Blood Urea Nitrogen 7 mg/dL (9-20); Carbon Dioxide 25 mmol/L (22-30); Chloride 100 mmol/L (98-107); Estimated Glomerular Filt Rate > 60; Glucose 120 mg/dL (65-110); Potassium 3.4 mmol/L (3.4-5.0); Sodium 132 mmol/L (137-145)
[2024-09-17 13:43] LABS: INR 1.8; Prothrombin Time 21.1 Seconds (11.1-14.7)
[2024-09-17 13:44] LABS: Partial Thromboplastin Time 33.8 Seconds (22.3-36.8)
[2024-09-17 13:46] LABS: NT Pro B Type Natriuretic Pept 16300 pg/mL (19.9-100)
[2024-09-17 15:17] VITALS: O2SAT 97
--- NOTE | 2024-09-17 15:45 | PCCCNOTE ---
Received a call from ED charge, stating they need assistance with getting a hold of a next of kin for the pt. Called the pts nursing facility [facility] at [phone] and spoke with Sharla. Stated she is agency and with her capabilities unable to see in the chart if the pt has any legal contacts. Care Coordination called Frida a contact with [facility] at [phone] and stated their account administrator is Aurelio and will have her call CC back FEDERICO.-raphael
--- NOTE | 2024-09-17 16:42 | PCCCNOTE ---
Received a call back from Frida with [facility] with the following contacts: 1-Vishnu [phone] 2-Sister Desiree [phone] 3-Ex Lilliana [phone] Called all the contacts and had to [facility] requesting a return call. ED charge nurse and provider updated on the status.raphael
--- NOTE | 2024-09-17 17:30 | P.HP_ITS ---
H&P: HPI History of Present Illness Date/Time: 09/17/24 17:30 Chief Complaint: Chest pain Narrative: 79-year-old male past medical history of dementia, decubitus ulcer status post debridement on long-term IV antibiotics, CHF, presents the hospital with chest pain. HPI is extremely limited as patient has dementia and is from a skilled nursing. In the ED patient has leukocytosis at 10.8, anemia at 7.8, sodium of 132, BUN is 7, creatinine of 0.54, calcium of 8.0, alkaline phos of 153, troponin is flat at 0.02, [place] [address], albumin of 2.5. CT abdomen chest pelvis shows large bilateral pleural effusions no PE, left upper lobe pneumonia, fluid the pelvis in left pericolic gutter, hyperdensity in the right side of bladder, renal cysts, and atrophic pancreas. Review of Systems Review of Systems: ROS unobtainable: Yes unobtainable due to mental status PMFSH Past Medical History Medical History (Updated 09/17/24 @ 18:23 by Felipe Knight MD) Gastric ulcer Type 2 diabetes mellitus Hypercholesterolemia Hypothyroidism CVA (cerebral vascular accident) BPH (benign prostatic hyperplasia) Ischemic heart disease Heart failure Meds Home Medications and Allergies Allergies Allergy/AdvReac Type Severity Reaction Status Date / Time aspirin Allergy Unknown Unknown Verified 09/17/24 21:46 gabapentin Allergy Unknown Unknown Verified 09/17/24 21:46 metformin Allergy Unknown Unknown Verified 09/17/24 21:46 simvastatin Allergy Unknown Unknown Verified 09/17/24 21:46 Vital Signs Vital Signs - 24 hr 09/17/24 15:17 Pulse Oximetry 97 Oxygen Delivery Room Air Exam Narrative: General: Chronically ill-appearing HEENT: normocephalic, atraumatic. Mucous membranes moist. EOMI, PERRLA, bilateral sclera anicteric, no conjunctival injection. Neck supple without JVD, lymphadenopathy, or bruit. Respiratory: clear to ascultation bilaterally. No rales/rhonic/wheezes. Cardiovascular: Regular rate and rhythm, normal S1-S2 upon ascultation. No murmurs, rubs, or clicks. PMI is nondisplaced, capillary refill less than 3 second. Abdomen: Soft, round, no pulsatile masses, nondistended and nontender. No rebound, no guarding. No CVA tenderness, no hepatosplenomegaly. Bowel sounds present to all four quadrants. No high pitch or tinkling sounds, resonant to percussion. Extremities: No cyanosis, clubbing, Pulses are palpable 2/2. Upper lower extremity edema 2 to 3+ Neuro: Alert and orientated x 4. PERRLA. Cranial nerves 2-12 intact without focal deficit. Skin: Warm, dry, and intact, without rash, erythema, or lesion. Psych: pleasant, cooperative, normal speech, normal affect, no hallucinations, no dysarthia Heel ulcers Coccyx ulcer status post debridement Chronic Barros H&P: Results Labs Labs: Short CBC 09/17/24 Range/Units 13:10 WBC 10.8 H (4.5-10.0) K/mm3 Hgb 7.8 L (14.0-18.0) g/dL Hct 25.5 L (42.0-52.0) % Plt Count 117 L (150-375) k/mm3 BMP 09/17/24 13:10 Sodium 132 L Potassium 3.4 Chloride 100 Carbon Dioxide 25 BUN 7 L Creatinine 0.54 L Glucose 120 H Calcium 8.0 L Cardiac Enzymes 09/17/24 09/17/24 Range/Units 13:10 15:30 Troponin I 0.020 0.020 (0.000-0.034) ng/mL Liver Function 09/17/24 Range/Units 13:10 Total Bilirubin 1.1 (0.2-1.3) mg/dL AST 24 (17-59) U/L ALT 15 (6-50) U/L Alkaline Phosphatase 153 H (38-126) U/L Albumin 2.5 L (3.5-5.1) g/dL Assessment and Plan Assessment and plan (1) Chest pain: Code(s): R07.9 - Chest pain, unspecified Status: Acute Assessment and Plan: Could be due to pulmonary edema and pleural effusions Troponins flat EKG shows sinus rhythm with left bundle branch block (2) Heart failure: Code(s): I50.9 - Heart failure, unspecified Status: Acute Assessment and Plan: Acute on chronic, 40 mg IV Lasix given in ED Okay for Barros catheter due to aggressive diuresis (3) Pleural effusion: Code(s): J90 - Pleural effusion, not elsewhere classified Status: Acute Assessment and Plan: Family does not want aggressive measures and they have declined a thoracentesis Will manage with diuretics (4) Decubitus ulcer: Code(s): L89.90 - Pressure ulcer of unspecified site, unspecified stage Status: Acute Assessment and Plan: Status post debridement and on long-term antibiotic Continue vancomycin (5) Pneumonia: Code(s): J18.9 - Pneumonia, unspecified organism Status: Acute Assessment and Plan: Patient on vancomycin (6) Bladder mass: Code(s): N32.89 - Other specified disorders of bladder Status: Acute Assessment and Plan: Family does not want aggressive measures (7) Failure to thrive: Status: Acute Assessment and Plan: CARLOS ALBERTO is discussing patient's sister how the patient is declining a possibly will 1 hospice (8) BPH (benign prostatic hyperplasia): Code(s): N40.0 - Benign prostatic hyperplasia without lower urinary tract symptoms Status: Acute (9) Type 2 diabetes mellitus: Code(s): E11.9 - Type 2 diabetes mellitus without complications Status: Acute Assessment and Plan: Mone ARMENTA (10) Hypothyroidism: Code(s): E03.9 - Hypothyroidism, unspecified Status: Acute Assessment and Plan: Waiting on med rec to be completed Quality VTE Prophylaxis VTE prophylaxis: mechanical ordered Waiting on med rec to be completed Hospitalist MIPS Advance Care Plan I have confirmed that the patient's Advanced Care Plan is present, code status is documented, or surrogate decision maker is listed in patient medical record.: Yes
[2024-09-17] MEDS: FUROSEMIDE INJ 40 MG/4 ML VIAL IV PUSH (18:24)
[2024-09-17 20:24] VITALS: BP 114/65; PULSE 98; RESP 18; TEMP 37.7; O2SAT 92
[2024-09-17 20:40] VITALS: PULSE 99
[2024-09-17 20:45] VITALS: PULSE 98; RESP 18; O2SAT 92
--- NOTE | 2024-09-17 20:46 | ADMGEN ---
Addendum entered by Jenni Winkler RN 09/18/24 08:30: Pt with AMS, H/O dementia and unable to confirm history, medications, and contact information. All information obtained from the medical record and the [place] transfer paperwork. Original Note: This patient, Juwan Lopez, was admitted to IMU Room 204-01 on 09/17/24 at 2024. Patient/family oriented to hospital policies and general routines including ID bracelet, bed and alarms, visiting hours, pain management, procedures, bathroom and other care routines, personal items, smoking policy, room service/diet, and visiting hours. Information on how to activate the Rapid Response Team has been discussed. Patient/Family are encouraged to report perceived risks to care and to ask questions if they do not understand what they are told or what they should do.
[2024-09-17 22:00] VITALS: PULSE 84
[2024-09-17 23:34] VITALS: BP 98/47; PULSE 80; RESP 18; TEMP 36.4; O2SAT 99
[2024-09-18] VITALS (20 sets, daily range): BP systolic 95–123; BP diastolic 51–76; PULSE 68–89; RESP 16–20; TEMP 36.4–36.6; O2SAT 97–100
[2024-09-18] MEDS: ALBUMIN HUMAN 25% 25 GM/100 ML 100 ML IVPB (02:36)
[2024-09-18] MEDS: CALCIUM GLUC 1,000 MG/NS 50 ML 1,000 MG/50 ML BAG 100 MG IVPB (02:41)
[2024-09-18 04:05] LABS: Bacteria Urine None Seen /hpf; RBC Urine >100 /hpf (0-2); Squamous Epithelial Cell Urine Moderate /hpf (Few)
[2024-09-18 04:18] LABS: Add Urine Microscopic? YES; Appearance Urine Turbid (Clear); Bilirubin Urine Negative (Negative); Blood Urine 3+ (Negative); Color Urine Orange (Yellow); Glucose Urine UA Negative (Negative); Ketones Urine Negative (Negative); Leukocyte Esterase Ur 2+ LEU/UL (Negative); Nitrate Urine Negative (Negative); Protein Urine 1+ mg/dL (Negative); Urobilinogen Urine 0.2 mg/dL (<2.0)
[2024-09-18] MEDS: HYDROcodone/acetaminophen (*CRX) 5-325 MG TABLET 1 TAB PO ×3 (04:31→20:39)
[2024-09-18 05:10] LABS: Anion Gap 6 mmol/L (4-12); Blood Urea Nitrogen 8 mg/dL (9-20); Calcium 8.1 mg/dL (8.4-10.2); Carbon Dioxide 26 mmol/L (22-30); Chloride 100 mmol/L (98-107); Estimated Glomerular Filt Rate > 60; Glucose 95 mg/dL (65-110); Sodium 132 mmol/L (137-145)
[2024-09-18 08:57] LABS: Basophils Percent Auto 0.4 % (0.2-1.2); Eosinophils Absolute Auto 0.1 K/mm3 (0-0.3); Eosinophils Percent Auto 0.6 % (0-4.4); Immature Granulocyte Absolute 0.17 K/mm3 (0.00-0.031); Immature Granulocyte Percent A 1.7 % (0-0.5); Immature Platelet Fraction Pct 9.3 % (0.9-11.2); Lymphocytes Absolute Auto 0.92 K/mm3 (0.9-3.2); Lymphocytes Percent Auto 9.4 % (18.3-44.2); Mean Corpuscular Hemoglobin 30.2 pg (26-34); Mean Corpuscular Volume 97.7 fl (80-100); Mean Platelet Volume 12.4 fl (7.4-10.4); Monocytes Absolute Auto 0.7 K/mm3 (0.1-0.6); Monocytes Percent Auto 7.2 % (2.6-8.5); Neutrophils Absolute Auto 7.9 K/mm3 (1.3-6.7); Neutrophils Percent Auto 80.7 % (45.5-73.1); Platelet Count Result 89 k/mm3 (150-375); Red Blood Count 2.15 M/mm3 (4.6-6.20); White Blood Count 9.8 K/mm3 (4.5-10.0)
[2024-09-18 09:18] LABS: Hemoglobin 6.5 g/dL (14.0-18.0)
[2024-09-18 09:20] LABS: Anisocytosis 2+; Ovalocytes 1+; Platelet Estimate Decreased (Adequate); Schistocytes None Seen
[2024-09-18] MEDS: POTASSIUM CHLORIDE 20 MEQ PACKET (FOR LIQUID) 40 MEQ PO (10:24)
[2024-09-18] MEDS: levoFLOXacin 750 MG/D5W 150 ML 750 MG/150 ML BAG 100 MG IVPB (10:25)
[2024-09-18] MEDS: FUROSEMIDE INJ 40 MG/4 ML VIAL IV PUSH ×2 (10:25→16:36)
[2024-09-18] MEDS: TUBING, BLOOD PLUM PUMP TUBING 1 EACH XX (10:38)
--- NOTE | 2024-09-18 10:38 | PCCCNOTE ---
Pt's ex- returned the call from 09/17/24 and apologized, stated she was busy digging a hole for a tree. Stated she will f/u with the POA for any further details.-raphael
[2024-09-18 10:45] LABS: Glucose Point of Care 93 mg/dl (65-105)
[2024-09-18 11:21] LABS: MRSA (PCR) NOT DETECTED (NOT DETECTE)
[2024-09-18] MEDS: ALTEPLASE 2 MG VIAL (CATHFLO) IV PUSH (11:37)
[2024-09-18] MEDS: SODIUM CHLORIDE 0.9% IV 250 ML 30 ML IV CONT (12:15)
[2024-09-18 13:06] LABS: Glucose Point of Care 118 mg/dl (65-105)
--- NOTE | 2024-09-18 13:13 | P.PNIM_ITS ---
Progress Note: A&P Assessment and Plan (1) Chest pain: Code(s): R07.9 - Chest pain, unspecified Status: Acute Assessment and Plan: Could be due to pulmonary edema and pleural effusions Troponins flat EKG shows sinus rhythm with left bundle branch block (2) Heart failure: Code(s): I50.9 - Heart failure, unspecified Status: Acute Assessment and Plan: Acute on chronic, CT chest showed bilateral pleural effusion Started on Lasix 40mg IV bid Monitor (3) Pleural effusion: Code(s): J90 - Pleural effusion, not elsewhere classified Status: Acute Assessment and Plan: contineu above care (4) Decubitus ulcer: Code(s): L89.90 - Pressure ulcer of unspecified site, unspecified stage Status: Acute Assessment and Plan: Status post debridement and on long-term antibiotic Continue vancomycin gen surgery consulted for debridement (5) Pneumonia: Code(s): J18.9 - Pneumonia, unspecified organism Status: Acute Assessment and Plan: Ct chest showed bilateral patchy infiltrates Started Levaquin MRSA negative monitor cultures (6) Bladder mass: Code(s): N32.89 - Other specified disorders of bladder Status: Acute Assessment and Plan: Family does not want aggressive measures urology consulted regardless (7) Failure to thrive: Status: Acute Assessment and Plan: POA is discussing comfort care adn hospice with other family members (8) BPH (benign prostatic hyperplasia): Code(s): N40.0 - Benign prostatic hyperplasia without lower urinary tract symptoms Status: Acute (9) Type 2 diabetes mellitus: Code(s): E11.9 - Type 2 diabetes mellitus without complications Status: Acute Assessment and Plan: Mone OSCAR SSI (10) Hypothyroidism: Code(s): E03.9 - Hypothyroidism, unspecified Status: Acute Assessment and Plan: Waiting on med rec to be completed Plan Severe anemia Hb 6.5 Give 1 unit pRBC monitor h and h DVT prophylaxis on SCDs, no AC due to possible GI bleed Awaitign decision of family adn HPOA about comfort care and hospice. Subjective Date/time seen: 09/18/24 13:13 Interval history: Comfortable at bedside Family is considering comfort care, however they are still discussing about it However in [facility] meantime we will continue treatment pending the outcome of their conversation Review of Systems Review of Systems: ROS unobtainable: Yes unobtainable due to mental status Exam Narrative: General: Chronically ill-appearing HEENT: normocephalic, atraumatic. Mucous membranes moist. EOMI, PERRLA, bilateral sclera anicteric, no conjunctival injection. Neck supple without JVD, lymphadenopathy, or bruit. Respiratory: clear to ascultation bilaterally. No rales/rhonic/wheezes. Cardiovascular: Regular rate and rhythm, normal S1-S2 upon ascultation. No murmurs, rubs, or clicks. PMI is nondisplaced, capillary refill less than 3 second. Abdomen: Soft, round, no pulsatile masses, nondistended and nontender. No rebound, no guarding. No CVA tenderness, no hepatosplenomegaly. Bowel sounds present to all four quadrants. No high pitch or tinkling sounds, resonant to percussion. Extremities: No cyanosis, clubbing, Pulses are palpable 2/2. Upper lower extremity edema 2 to 3+ Neuro: Alert and orientated x 4. PERRLA. Cranial nerves 2-12 intact without focal deficit. Skin: Warm, dry, and intact, without rash, erythema, or lesion. Psych: pleasant, cooperative, normal speech, normal affect, no hallucinations, no dysarthia Heel ulcers Coccyx ulcer status post debridement Chronic [place]ros Objective Data Vital Signs Vital Signs: Vital Signs - 24 hr 09/17/24 15:17 09/17/24 20:24 09/17/24 20:40 Temperature 99.9 F H Pulse Rate 98 99 Respiratory Rate 18 Blood Pressure 114/65 Pulse Oximetry 97 92 Oxygen Delivery Room Air 09/17/24 20:45 09/17/24 22:00 09/17/24 23:34 Temperature 97.5 F L Pulse Rate 98 84 80 Respiratory Rate 18 18 Blood Pressure 98/47 L Pulse Oximetry 92 99 Oxygen Delivery Room Air 09/18/24 00:00 09/18/24 00:40 09/18/24 02:00 Temperature Pulse Rate 76 80 81 Respiratory Rate 18 Blood Pressure Pulse Oximetry 99 Oxygen Delivery Room Air 09/18/24 03:20 09/18/24 04:00 09/18/24 04:00 Temperature 97.8 F Pulse Rate 80 80 74 Respiratory Rate 16 16 Blood Pressure 113/61 Pulse Oximetry 100 100 Oxygen Delivery Room Air 09/18/24 06:00 09/18/24 08:00 09/18/24 11:55 Temperature 97.8 F Pulse Rate 72 72 78 Respiratory Rate 20 18 Blood Pressure 117/62 95/58 L Pulse Oximetry 97 97 Oxygen Delivery 09/18/24 12:36 09/18/24 12:52 Temperature 97.6 F 97.5 F L Pulse Rate 73 75 Respiratory Rate 16 16 Blood Pressure 95/51 L 105/60 Pulse Oximetry 97 100 Oxygen Delivery Intake/Output Intake/Output: Intake & Output 09/15/24 09/16/24 09/17/24 09/18/24 23:59 23:59 23:59 23:59 Intake Total 790 Output Total 250 560 Balance -250 230 Meds/Results Medications: Active Medications Generic Name Dose Route Start Last Admin Trade Name Freq PRN Reason Stop Dose Admin Acetaminophen 650 mg 09/17/24 17:27 Acetaminophen 325 Mg Tablet PO Q4H PRN Mild Pain (1-3) or Fever Hydrocodone Bitart/Acetaminophen 1 tab 09/17/24 17:27 09/18/24 10:25 Hydrocodone/Acetaminophen (*Crx) 5-325 Mg Tablet PO 1 tab Q4H PRN Administration Pain Rated 4-6 Alteplase, Recombinant 2 mg 09/18/24 11:12 09/18/24 11:37 Alteplase 2 Mg Vial (Cathflo) IV PUSH 2 mg ONCE PRN Administration Line Occlusion Dextrose 12.5 gm 09/18/24 00:04 Dextrose 50% 25 Gm/50 Ml Syringe IV PUSH PRN PRN Hypoglycemia Protocol Enoxaparin Sodium 40 mg 09/18/24 09:00 09/18/24 10:15 Enoxaparin 40 Mg/0.4 Ml Syringe SUB-Q Not Given DAILY JESSICA Furosemide 40 mg 09/18/24 09:00 09/18/24 10:25 Furosemide Inj 40 Mg/4 Ml Vial IV PUSH 40 mg DAILY JESSICA Administration Glucagon 1 mg 09/18/24 00:04 Glucagon For Inj 1 Mg Vial IM PRN PRN Hypoglycemia Protocol Glucose 15 gm 09/18/24 00:04 Glucose Oral Gel 15 Gm Of Glucse In 37.5 Gm Tube PO PRN PRN Hypoglycemia Protocol Dextrose 1,000 mls @ 100 mls/hr 09/18/24 00:04 Dextrose 5% 1,000 Ml IVPB PRN PRN Hypoglycemia Protocol Levofloxacin/Dextrose 750 mg in 150 mls @ 100 mls/hr 09/18/24 09:00 09/18/24 10:25 Levaquin 750 Mg/D5w 150 Ml IVPB 100 mls/hr Q24H JESSICA Administration Potassium Chloride 40 meq/ 520 mls @ 130 mls/hr 09/18/24 09:15 Sodium Chloride IVPB 09/18/24 13:14 ONCE ONE Sodium Chloride 250 mls @ 30 mls/hr 09/18/24 09:29 09/18/24 12:15 Normal Saline Iv IV CONT 09/18/24 17:48 30 mls/hr .Q8H20M STA Administration Insulin Aspart 2 - 5 units 09/18/24 08:00 09/18/24 10:13 Insulin Aspart (*Bkc) 100 Units/Ml SUB-Q Not Given TIDWM JESSICA Protocol Miscellaneous Information 1 each 09/19/24 00:01 Please Enter Patient Height For Medication Dosing XX 10/19/24 00:00 CLARIFY JESSICA Ondansetron HCl 4 mg 09/17/24 17:27 Ondansetron Inj 4 Mg/2 Ml Vial IV PUSH Q4H PRN Nausea Perflutren Lipid Microsphere 0 ml 09/18/24 08:04 Perflutren Lipid Microspheres 1.5 Ml Vial Diluted To 10 Ml Total Volume IV PUSH 09/21/24 08:04 ONCE PRN adequate visualization Protocol Sodium Chloride 10 ml 09/18/24 14:00 Central Line Flush IV PUSH Q8HR JESSICA Sodium Chloride 10 ml 09/18/24 08:34 Central Line Flush IV PUSH PRN PRN with TPN bag changes Sodium Chloride 20 ml 09/18/24 08:34 Central Line Flush IV PUSH PRN PRN after blood draws Radiology Results: ITS Impressions Chest X-Ray 09/17/24 12:58 IMPRESSION: 1. Moderate-sized right and small left pleural effusions with associated atelectasis and/or pneumonia in the lower lung zones. Chest/Abdomen/Pelvis CTA 09/17/24 14:43 IMPRESSION: CHEST: 1. Large bilateral pleural effusion more on the right side with adjacent atelectasis. 2. No pulmonary embolism. 3. Multiple patchy groundglass opacities in the left upper lobe suggestive of pneumonia. ABDOMEN/PELVIS: 1. No evidence of appendicitis, diverticulitis or intestinal obstruction. 2. Fluid seen in the pelvis and left paracolic gutter. Clinical correlation and follow-up advised. 3. Hyperdense area in the right side of the urinary bladder. Cystoscopy is advised. The differential include hematoma versus stones versus mass. 4. Bilateral renal cysts with the largest in the left kidney midpole. 5. Atrophic pancreas. Labs Labs: Laboratory Results - last 24 hr 09/17/24 09/17/24 09/18/24 13:10 15:30 03:30 WBC 10.8 H RBC 2.59 L Hgb 7.8 L Hct 25.5 L MCV 98.5 MCH 30.1 MCHC 30.6 L RDW 21.0 H Plt Count 117 L MPV 11.7 H Immature Gran % (Auto) 1.9 H Neut % (Auto) 82.7 H Lymph % (Auto) 7.5 L [place] % (Auto) 6.7 Eos % (Auto) 0.6 Baso % (Auto) 0.6 Lymph # (Auto) 0.81 L [place] # (Auto) 0.7 H Eos # (Auto) 0.1 Baso # (Auto) 0.1 Abs Immat Gran (auto) 0.20 H Absolute Neuts (auto) 8.9 H Absolute Nucleated RBC 0.000 Band Neutrophils % Nucleated RBC % 0.0 Platelet Estimate % Immature Plt Fraction 7.8 Anisocytosis Ovalocytes Schistocytes PT 21.1 H INR 1.8 APTT 33.8 Sodium 132 L Potassium 3.4 Chloride 100 Carbon Dioxide 25 Anion Gap 7 BUN 7 L Creatinine 0.54 L Estim Creat Clear Calc Not Reportable Estimated GFR > 60 Glucose 120 H POC Capillary Glucose Calcium 8.0 L Total Bilirubin 1.1 AST 24 ALT 15 Alkaline Phosphatase 153 H Troponin I 0.020 0.020 NT-Pro-B Natriuret Pep 16292 H Total Protein 6.0 L Albumin 2.5 L Urine Color [place] H Urine Appearance Turbid H Urine pH 5.0 Ur Specific [place] 1.020 Urine Protein 1+ H Urine Glucose (UA) Negative Urine Ketones Negative Ur Blood (Man) 3+ H Urine Nitrate Negative Urine Bilirubin Negative Urine Urobilinogen 0.2 Leukocyte Esterase Rfl 2+ H Urine RBC >100 H Urine WBC 11-20 H Ur Squamous Epith Cells Moderate Urine Bacteria None seen Urine Casts 3-5 Nasal MRSA (PCR) Blood Type Antibody Screen Crossmatch 09/18/24 09/18/24 09/18/24 04:16 08:14 08:16 WBC 9.8 RBC 2.15 L Hgb 6.5 L* Hct 21.0 L MCV 97.7 MCH 30.2 MCHC 31.0 L RDW 21.0 H Plt Count 89 L MPV 12.4 H Immature Gran % (Auto) 1.7 H Neut % (Auto) 80.7 H Lymph % (Auto) 9.4 L [place] % (Auto) 7.2 Eos % (Auto) 0.6 Baso % (Auto) 0.4 Lymph # (Auto) 0.92 [place] # (Auto) 0.7 H Eos # (Auto) 0.1 Baso # (Auto) 0.0 Abs Immat Gran (auto) 0.17 H Absolute Neuts (auto) 7.9 H Absolute Nucleated RBC 0.000 Band Neutrophils % Not Reportable Nucleated RBC % 0.0 Platelet Estimate Decreased % Immature Plt Fraction 9.3 Anisocytosis 2+ Ovalocytes 1+ Schistocytes None seen PT INR APTT Sodium 132 L Potassium 3.0 L Chloride 100 Carbon Dioxide 26 Anion Gap 6 BUN 8 L Creatinine 0.63 L Estim Creat Clear Calc Not Reportable Estimated GFR > 60 Glucose 95 POC Capillary Glucose 93 Calcium 8.1 L Total Bilirubin AST ALT Alkaline Phosphatase Troponin I NT-Pro-B Natriuret Pep Total Protein Albumin Urine Color Urine Appearance Urine pH Ur Specific [place] Urine Protein Urine Glucose (UA) Urine Ketones Ur Blood (Man) Urine Nitrate Urine Bilirubin Urine Urobilinogen Leukocyte Esterase Rfl Urine RBC Urine WBC Ur Squamous Epith Cells Urine Bacteria Urine Casts Nasal MRSA (PCR) Blood Type Antibody Screen Crossmatch 09/18/24 09/18/24 10:05 13:01 WBC RBC Hgb Hct MCV MCH MCHC RDW Plt Count MPV Immature Gran % (Auto) Neut % (Auto) Lymph % (Auto) [place] % (Auto) Eos % (Auto) Baso % (Auto) Lymph # (Auto) [place] # (Auto) Eos # (Auto) Baso # (Auto) Abs Immat Gran (auto) Absolute Neuts (auto) Absolute Nucleated RBC Band Neutrophils % Nucleated RBC % Platelet Estimate % Immature Plt Fraction Anisocytosis Ovalocytes Schistocytes PT INR APTT Sodium Potassium Chloride Carbon Dioxide Anion Gap BUN Creatinine Estim Creat Clear Calc Estimated GFR Glucose POC Capillary Glucose 118 H Calcium Total Bilirubin AST ALT Alkaline Phosphatase Troponin I NT-Pro-B Natriuret Pep Total Protein Albumin Urine Color Urine Appearance Urine pH Ur Specific [place] Urine Protein Urine Glucose (UA) Urine Ketones Ur Blood (Man) Urine Nitrate Urine Bilirubin Urine Urobilinogen Leukocyte Esterase Rfl Urine RBC Urine WBC Ur Squamous Epith Cells Urine Bacteria Urine Casts Nasal MRSA (PCR) Not detected Blood Type A Positive Antibody Screen Negative Crossmatch See Detail Quality VTE Prophylaxis VTE prophylaxis: mechanical ordered
--- NOTE | 2024-09-18 13:38 | P.CONGS_ITS ---
Assessment and Plan Assessment and plan (1) Sacral decubitus ulcer, stage IV: Code(s): L89.154 - Pressure ulcer of sacral region, stage 4 Status: Acute Assessment and Plan: Patient would need debridement of this sacral decubitus if family and power of division toll wire chief wished to proceed. Ideally, this could be done in the operating room where an adequate debridement could take place. This would require anesthesia and most likely general anesthesia with an endotracheal tube. If this is not consistent with DNR status, I could trim away most of the tissue attended over the sacrum at the bedside. Will apply dry gauze dressings for now and await decision from power of division toll wire chief regarding surgical treatment. (2) Heart failure: Code(s): I50.9 - Heart failure, unspecified Status: Chronic Assessment and Plan: Being diuresed (3) Type 2 diabetes mellitus: Code(s): E11.9 - Type 2 diabetes mellitus without complications Status: Chronic (4) Failure to thrive: Status: Chronic History of Present Illness Consult details Consult date: 09/18/24 Reason for consult: wound care Requesting physician: Lorie Puckett MD Narrative: Patient is an 79-year-old man who moved to this area recently as he has a sister here. He has dementia and congestive heart failure. He is incapable making his own decisions. His power of division toll wire chief lives in [place]. He is do not resuscitate status. Considerations are underway regarding comfort measures only. POA did decide not to have a thoracentesis done. Definitely do not want to be aggressive. I was asked to see the patient regarding a sacral decubitus. Apparently, he had surgical debridement of this at hospital in [place]. It was reported he was septic due to the decubitus. Patient is seen now in consultation regarding large sacral decubitus. Review of Systems 2 Review of Systems: ROS unobtainable: Yes unobtainable due to medical condition PMFSH Past Medical History Medical History Gastric ulcer Type 2 diabetes mellitus Hypercholesterolemia Hypothyroidism CVA (cerebral vascular accident) BPH (benign prostatic hyperplasia) Ischemic heart disease Heart failure Family History Family History Other Unknown family medical history Social History Social History Smoking status: Unknown if ever smoked Alcohol intake: unknown Substance use: unknown Substance use type: unknown Do You Feel Safe in your Home?: Yes Lack of Transportation: No Lack of Food: Never True Current Housing: I Have Housing Concerned About Future Housing: Decline to Answer Difficulty Paying Gas/Electric Bills: Decline to Answer Difficulty Paying for Meds: Decline to Answer Currently Unemployed: Decline to Answer Education: Decline to Answer Difficulty w/ Childcare or Family Care: No Spiritual care concerns: No Meds Home Medications and Allergies Home Medications ?Medication ?Instructions ?Recorded ?Confirmed ?Type acetaminophen 500 mg tablet 500 mg PO Q6H PRN fever or pain 09/17/24 09/17/24 History (Tylenol Extra Strength) atorvastatin 40 mg tablet (Lipitor) 40 mg PO HS 09/17/24 09/17/24 History calcium 500 mg (as 1 tablet PO BID 09/17/24 09/17/24 History carbonate,gluconate)-vit D2 5 mcg (200 unit) tablet donepezil 5 mg tablet 5 mg PO HS 09/17/24 09/17/24 History levothyroxine 50 mcg capsule 50 mcg PO DAILY 09/17/24 09/17/24 History magnesium oxide 400 mg (241.3 mg 400 mg PO BID 09/17/24 09/17/24 History magnesium) tablet midodrine 10 mg tablet 10 mg PO TID 09/17/24 09/17/24 History pantoprazole 40 mg tablet,delayed 40 mg PO BID 09/17/24 09/17/24 History release sucralfate 1 gram tablet 1 g PO .COMPLEX 09/17/24 09/17/24 History vancomycin 1.75 gram intravenous 1.75 g IV Q24H For sepsis 09/17/24 09/18/24 History solution zinc oxide 10 % topical cream 1 applic topical BID 09/17/24 09/17/24 History amiodarone 200 mg tablet 200 mg PO DAILY 09/18/24 09/18/24 History balsam tato-castor oil topical 1 applic topical QAM 09/18/24 09/18/24 History ointment ceftriaxone 2 gram intravenous 2 g IV DAILY For sepsis. 09/18/24 09/18/24 History piggyback cholecalciferol (vitamin D3) 10 10 mcg PO DAILY 09/18/24 09/18/24 History mcg (400 unit) tablet (Vitamin D3) cyanocobalamin (vitamin B-12) 100 100 mcg PO DAILY 09/18/24 09/18/24 History mcg tablet empagliflozin 10 mg tablet 10 mg PO DAILY 09/18/24 09/18/24 History furosemide 20 mg tablet 20 mg PO DAILY 09/18/24 09/18/24 History insulin regular human 100 unit/mL See Rx Instructions subcut 09/18/24 09/18/24 History (3 mL) subcutaneous pen USEASDIRECTD multivitamin,tx-minerals 1 tablet PO DAILY 09/18/24 09/18/24 History mupirocin 2 % topical ointment 1 applic topical DAILY 09/18/24 09/18/24 History ([place]) potassium chloride 20 mEq 40 meq PO DAILY 09/18/24 09/18/24 History tablet,extended release (K-Tab) Allergies Allergy/AdvReac Type Severity Reaction Status Date / Time aspirin Allergy Unknown Unknown Verified 09/17/24 21:46 gabapentin Allergy Unknown Unknown Verified 09/17/24 21:46 metformin Allergy Unknown Unknown Verified 09/17/24 21:46 simvastatin Allergy Unknown Unknown Verified 09/17/24 21:46 Vital Signs Vital Signs - 24 hr 09/17/24 15:17 09/17/24 20:24 09/17/24 20:40 Temperature 37.7 C H Pulse Rate 98 99 Respiratory Rate 18 Blood Pressure 114/65 Pulse Oximetry 97 92 Oxygen Delivery Room Air 09/17/24 20:45 09/17/24 22:00 09/17/24 23:34 Temperature 36.4 C L Pulse Rate 98 84 80 Respiratory Rate 18 18 Blood Pressure 98/47 L Pulse Oximetry 92 99 Oxygen Delivery Room Air 09/18/24 00:00 09/18/24 00:40 09/18/24 02:00 Temperature Pulse Rate 76 80 81 Respiratory Rate 18 Blood Pressure Pulse Oximetry 99 Oxygen Delivery Room Air 09/18/24 03:20 09/18/24 04:00 09/18/24 04:00 Temperature 36.6 C Pulse Rate 80 80 74 Respiratory Rate 16 16 Blood Pressure 113/61 Pulse Oximetry 100 100 Oxygen Delivery Room Air 09/18/24 06:00 09/18/24 08:00 09/18/24 11:55 Temperature 36.6 C Pulse Rate 72 72 78 Respiratory Rate 20 18 Blood Pressure 117/62 95/58 L Pulse Oximetry 97 97 Oxygen Delivery 09/18/24 12:36 09/18/24 12:52 Temperature 36.4 C 36.4 C L Pulse Rate 73 75 Respiratory Rate 16 16 Blood Pressure 95/51 L 105/60 Pulse Oximetry 97 100 Oxygen Delivery Exam 2 Const: General: cooperative, alert, awake and uncomfortable HENMT: Head: normal to inspection, normocephalic, atraumatic and No periorbital ecchymosis Eyes: Alignment and Position: alignment normal Periorbital: periorbital findings normal Eyelids: eyelids normal Sclera: sclerae normal Neck: Neck: normal visual inspection, no lymphadenopathy, trachea midline and supple GI: Inspection: non-distended GI Palp: Yes Soft to palpation and No Tenderness to palpation present (GI) Back/Spine/Pelvis: Sacrum: tenderness and other (Large 15 x 10 decubitus with necrotic skin tented over sacral bone) Coccyx: Coccyx tenderness present O ther: Decubitus has foul odor. Necrotic skin tented over the underlying wound makes application of wound healing products difficult to apply and review wound status. Results Labs 09/18/24 08:16 09/18/24 04:16 Labs: Abnormal lab results 09/17/24 09/18/24 09/18/24 Range/Units 13:10 03:30 04:16 RBC (4.6-6.20) M/mm3 Hgb (14.0-18.0) g/dL Hct (42.0-52.0) % MCHC (32-36) g/dl RDW (11.5-14.5) % Plt Count (150-375) k/mm3 MPV (7.4-10.4) fl Immature Gran % (Auto) (0-0.5) % Neut % (Auto) (45.5-73.1) % Lymph % (Auto) (18.3-44.2) % [place] # (Auto) (0.1-0.6) K/mm3 Abs Immat Gran (auto) (0.00-0.031) K/mm3 Absolute Neuts (auto) (1.3-6.7) K/mm3 PT 21.1 H (11.1-14.7) Seconds Sodium 132 L (137-145) mmol/L Potassium 3.0 L (3.4-5.0) mmol/L BUN 8 L (9-20) mg/dL Creatinine 0.63 L (0.7-1.3) mg/dL POC Capillary Glucose (65-105) mg/dl Calcium 8.1 L (8.4-10.2) mg/dL NT-Pro-B Natriuret Pep 35160 H (19.9-100) pg/mL Urine Color [place] H (Yellow) Urine Appearance Turbid H (Clear) Urine Protein 1+ H (Negative) mg/dL Ur Blood (Man) 3+ H (Negative) Leukocyte Esterase Rfl 2+ H (Negative) MOODY/UL Urine RBC >100 H (0-2) /hpf Urine WBC 11-20 H (0-3) /hpf Crossmatch 09/18/24 09/18/24 09/18/24 Range/Units 08:16 10:05 13:01 RBC 2.15 L (4.6-6.20) M/mm3 Hgb 6.5 L* (14.0-18.0) g/dL Hct 21.0 L (42.0-52.0) % MCHC 31.0 L (32-36) g/dl RDW 21.0 H (11.5-14.5) % Plt Count 89 L (150-375) k/mm3 MPV 12.4 H (7.4-10.4) fl Immature Gran % (Auto) 1.7 H (0-0.5) % Neut % (Auto) 80.7 H (45.5-73.1) % Lymph % (Auto) 9.4 L (18.3-44.2) % [place] # (Auto) 0.7 H (0.1-0.6) K/mm3 Abs Immat Gran (auto) 0.17 H (0.00-0.031) K/mm3 Absolute Neuts (auto) 7.9 H (1.3-6.7) K/mm3 PT (11.1-14.7) Seconds Sodium (137-145) mmol/L Potassium (3.4-5.0) mmol/L BUN (9-20) mg/dL Creatinine (0.7-1.3) mg/dL POC Capillary Glucose 118 H (65-105) mg/dl Calcium (8.4-10.2) mg/dL NT-Pro-B Natriuret Pep (19.9-100) pg/mL Urine Color (Yellow) Urine Appearance (Clear) Urine Protein (Negative) mg/dL Ur Blood (Man) (Negative) Leukocyte Esterase Rfl (Negative) MOODY/UL Urine RBC (0-2) /hpf Urine WBC (0-3) /hpf Crossmatch See Detail Diabetes panel 09/18/24 Range/Units 04:16 Sodium 132 L (137-145) mmol/L Potassium 3.0 L (3.4-5.0) mmol/L Chloride 100 (98-107) mmol/L Carbon Dioxide 26 (22-30) mmol/L BUN 8 L (9-20) mg/dL Creatinine 0.63 L (0.7-1.3) mg/dL Glucose 95 (65-110) mg/dL Calcium 8.1 L (8.4-10.2) mg/dL Calcium panel 09/18/24 Range/Units 04:16 Calcium 8.1 L (8.4-10.2) mg/dL Pituitary panel 09/18/24 Range/Units 04:16 Sodium 132 L (137-145) mmol/L Potassium 3.0 L (3.4-5.0) mmol/L Chloride 100 (98-107) mmol/L Carbon Dioxide 26 (22-30) mmol/L BUN 8 L (9-20) mg/dL Creatinine 0.63 L (0.7-1.3) mg/dL Glucose 95 (65-110) mg/dL Calcium 8.1 L (8.4-10.2) mg/dL Adrenal panel 09/18/24 Range/Units 04:16 Sodium 132 L (137-145) mmol/L Potassium 3.0 L (3.4-5.0) mmol/L Chloride 100 (98-107) mmol/L Carbon Dioxide 26 (22-30) mmol/L BUN 8 L (9-20) mg/dL Creatinine 0.63 L (0.7-1.3) mg/dL Glucose 95 (65-110) mg/dL Calcium 8.1 L (8.4-10.2) mg/dL All other labs normal.
[2024-09-18] MEDS: CENTRAL LINE FLUSH 10 ML IV PUSH ×2 (16:37→20:55)
[2024-09-18] MEDS: POTASSIUM CHLORIDE INJ 40 MEQ in SODIUM CHLORIDE 0.9% IV 500 ML 130 MEQ IVPB (16:41)
[2024-09-18 16:51] LABS: Glucose Point of Care 101 mg/dl (65-105)
[2024-09-18 20:57] LABS: Glucose Point of Care 127 mg/dl (65-105)
[2024-09-19] VITALS (11 sets, daily range): BP systolic 104–129; BP diastolic 48–80; PULSE 64–96; RESP 18–28; TEMP 36.2–36.9; O2SAT 96–100; BMI 29.1
--- NOTE | 2024-09-19 | ECHO_ITS ---
Patient Info Name: Juwan Lopez Age: 79 years : 1945 Gender: Male Ht: 70 in Wt: 195 lbs BSA: 2.11 m2 HR: 96 bpm BP: 112 / 63 mmHg Heart Rhythm: Sinus Rhythm Technical Quality: Fair Exam Date: 09/19/2024 10:10 AM Patient Status: I Admit Date: 09/18/2024 Exam Type: CA echo doppler color flow Complete two-dimensional, color flow and Doppler transthoracic echocardiogram is performed. Staff Referring Physician: Felipe Knight MD Marine Oiler: Beverly Cortez Attending Provider: Sunil Castellanos Summary 1. Complete two-dimensional, color flow and Doppler transthoracic echocardiogram is performed. 2. The left ventricle is normal in size with severely reduced systolic function. The left ventricular ejection fraction is visually estimated to be 20-25%. 3. The aortic valve is not well visualized but does appear to be heavily calcified. The Doppler gradients across the valve suggests moderate aortic stenosis. There is no aortic regurgitation. 4. There is large size pleural effusion. Left Ventricle The left ventricle is normal in size with severely reduced systolic function. The left ventricular ejection fraction is visually estimated to be 20-25%. Abnormal septal motion consistent with a bundle branch block. Right Ventricle The right ventricle is normal in size and systolic function. Left Atria The left atrium is mildly dilated. Right Atria The right atrium is dilated. Atrial Septum The atrial septum appears intact. Aortic Valve The aortic valve is not well visualized but does appear to be heavily calcified. The Doppler gradients across the valve suggests moderate aortic stenosis. There is no aortic regurgitation. Pulmonic Valve The pulmonic valve is not well visualized. There is no color Doppler evidence of pulmonic valve regurgitation. Mitral Valve The mitral valve leaflets are thickened. There is no mitral stenosis. There is mild mitral regurgitation. Tricuspid Valve The tricuspid valve leaflets are sclerotic. There is no tricuspid stenosis. There is mild tricuspid regurgitation. Pericardium/Pleural Pericardium is normal in appearance with no evidence for significant pericardial effusion. There is large size pleural effusion. Inferior Vena Cava The inferior vena cava is not well visualized. Aorta The aortic root is not well visualized. Left Ventricular Outflow Tract Name Value Normal LVOT 2D LVOT Diameter 2.0 cm LVOT Doppler LVOT Peak Velocity 104 cm/s LVOT Peak Gradient 4 mmHg LVOT Mean Gradient 2 mmHg LVOT VTI 18 cm LVOT VTI/AV VTI Ratio 0.4 LVOT Stroke Volume 59 ml LVOT CO 4.3 l/min LVOT CI 2.1 l/min/m2 Pulmonic Valve Name Value Normal RVOT Doppler RVOT Peak Velocity 43 cm/s RVOT Peak Gradient 1 mmHg PV Doppler PV Peak Velocity 118 cm/s PV Peak Gradient 6 mmHg Mitral Valve Name Value Normal MV Diastolic Function MV E Peak Velocity 129 cm/s MV A Peak Velocity 83 cm/s MV E/A 1.6 MV Decel Time (PW) 147 ms MV Annular TDI MV E/e' (Septal) 36.2 MV E/e' (Lateral) 13.5 MV E/e' (Average) 24.8 Tricuspid Valve Name Value Normal TV Regurgitation Doppler TR Peak Velocity 368 cm/s TR Peak Gradient 54 mmHg Estimated PAP/RSVP RA Pressure 10 mmHg <=5 PA Systolic Pressure 64 mmHg <36 RV Systolic Pressure 64 mmHg <36 TV Annular TDI TV Lateral Edwina s' Velocity 11.2 cm/s >=9.5 Aorta Name Value Normal Ascending Aorta Ao Root Diameter (MM) 3.0 cm Ao Root Diam Index (MM) 1.4 cm/m2 Aortic Valve Name Value Normal AV Doppler AV Peak Velocity 261 cm/s AV Peak Gradient 27 mmHg AV Mean Gradient 14 mmHg AV VTI 49 cm AV Area (Cont Eq VTI) 1.2 cm2 >=3.0 AV Area (Cont Eq Cl) 1.3 cm2 AV DI (Cl) 0.40 AV Regurgitation 2D LVOT Area 3.3 cm2 Ventricles Name Value Normal LV Dimensions 2D/MM IVS Diastolic Thickness (2D) 0.8 cm 0.6-1.0 LVID Diastole (2D) 5.2 cm 4.2-5.8 LVIW Diastolic Thickness (2D) 0.7 cm 0.6-1.0 LVID Systole (2D) 4.7 cm 2.5-4.0 LVOT Diameter 2.0 cm LV Mass (2D Cubed) 131.45 g 88.00-224.00 LV Mass Index (2D Cubed) 62 g/m2 49-115 Relative Wall Thickness (2D) 0.26 <=0.42 LV Fractional Shortening/Ejection Fraction 2D/MM LV Fractional Shortening (2D) 9 % 25-43 LV EF (2D Teichholz) 20 % LV Diastolic Volume (4C MOD) 126 ml LV EF (4C MOD) 33 % LV Diastolic Volume (2C MOD) 143 ml LV EF (2C MOD) 38 % LV Diastolic Volume (BP MOD) 134 ml 62-150 LV Diastolic Volume Index (BP MOD) 64 ml/m2 34-74 LV Systolic Volume (BP MOD) 86 ml 21-61 LV Systolic Volume Index (BP MOD) 41 ml/m2 11-31 LV EF (BP MOD) 36 % 52-72 LV Diastolic Length (4C) 9.3 cm LV Systolic Length (4C) 8.5 cm LV Stroke Volume (4C MOD) 42 ml Atria Name Value Normal LA Dimensions LA Dimension (MM) 4.6 cm 3.0-4.0 LA Volume (4C A-L) 79 ml LA Volume (BP A-L) 83 ml RA Dimensions RA Area (4C) 22.9 cm2 <=18.0 Report Signatures
[2024-09-19] MEDS: CENTRAL LINE FLUSH 10 ML IV PUSH ×3 (06:07→20:25)
[2024-09-19 06:35] LABS: Basophils Absolute Auto 0.1 K/mm3 (0.0-0.1); Basophils Percent Auto 0.5 % (0.2-1.2); Eosinophils Absolute Auto 0.1 K/mm3 (0-0.3); Eosinophils Percent Auto 0.7 % (0-4.4); Hematocrit 26.2 % (42.0-52.0); Hemoglobin 8.1 g/dL (14.0-18.0); Immature Granulocyte Absolute 0.17 K/mm3 (0.00-0.031); Immature Granulocyte Percent A 1.8 % (0-0.5); Immature Platelet Fraction Pct 7.8 % (0.9-11.2); Lymphocytes Absolute Auto 0.63 K/mm3 (0.9-3.2); Lymphocytes Percent Auto 6.7 % (18.3-44.2); Mean Corpuscular HGB Conc 30.9 g/dl (32-36); Mean Platelet Volume 11.3 fl (7.4-10.4); Monocytes Absolute Auto 0.6 K/mm3 (0.1-0.6); Monocytes Percent Auto 6.6 % (2.6-8.5); Neutrophils Absolute Auto 7.8 K/mm3 (1.3-6.7); Neutrophils Percent Auto 83.7 % (45.5-73.1); Platelet Count Result 106 k/mm3 (150-375); Red Cell Distribution Width 20.2 % (11.5-14.5); White Blood Count 9.4 K/mm3 (4.5-10.0)
[2024-09-19 06:40] LABS: Alanine Aminotransferase 13 U/L (6-50); Albumin Level 2.6 g/dL (3.5-5.1); Alkaline Phosphatase 116 U/L (38-126); Anion Gap 7 mmol/L (4-12); Aspartate Amino Transferase 19 U/L (17-59); Bilirubin,Total 1.6 mg/dL (0.2-1.3); Blood Urea Nitrogen 8 mg/dL (9-20); Calcium 8.1 mg/dL (8.4-10.2); Carbon Dioxide 26 mmol/L (22-30); Chloride 101 mmol/L (98-107); Estimated Glomerular Filt Rate > 60; Glucose 120 mg/dL (65-110); Magnesium 1.5 mg/dL (1.6-2.3); Potassium 3.8 mmol/L (3.4-5.0); Sodium 134 mmol/L (137-145)
[2024-09-19] MEDS: HYDROcodone/acetaminophen (*CRX) 5-325 MG TABLET 1 TAB PO ×3 (06:50→20:23)
[2024-09-19 08:31] LABS: Glucose Point of Care 130 mg/dl (65-105)
[2024-09-19] MEDS: FUROSEMIDE INJ 40 MG/4 ML VIAL IV PUSH ×2 (10:00→17:25)
[2024-09-19] MEDS: levoFLOXacin 750 MG/D5W 150 ML 750 MG/150 ML BAG 100 MG IVPB (10:00)
--- NOTE | 2024-09-19 10:12 | PCWOUND ---
WOCN NOTE Received referrral for wound care. Patient is being followed by general surgery. No WOCN assessment needed at this time.
--- NOTE | 2024-09-19 12:09 | WPDURCON ---
Assessment and Plan Assessment and plan (1) Hematuria: Code(s): R31.9 - Hematuria, unspecified Status: Acute Assessment and Plan: Proceed with cystoscopy with clot evacuation Urology Consult Note HPI Date Seen: 09/19/24 Time Seen: 08:00 Requesting Physician: Sunil Castellanos MD Primary Care Provider: PHYSICIAN NOT ON STAFF Consult Narrative Reason for consult: Hematuria Narrative: Juwan Lopez is a 79 year old male who was poor historian. Information obtained from patient's chart. Patient appears to be in some facility from [place]. He has currently a indwelling Barros which is draining dark colored bloody urine. He had a CT scan which revealed possible hematomas. Will evaluate further with cystoscopy. Review of Systems Review of Systems: All systems reviewed & are unremarkable except as noted in HPI and below PMFSH Past Medical History Medical History Gastric ulcer Type 2 diabetes mellitus Hypercholesterolemia Hypothyroidism CVA (cerebral vascular accident) BPH (benign prostatic hyperplasia) Ischemic heart disease Heart failure Family History Family History Other Unknown family medical history Social History Social History Smoking status: Unknown if ever smoked Alcohol intake: unknown Substance use: unknown Substance use type: unknown Do You Feel Safe in your Home?: Yes Lack of Transportation: No Lack of Food: Never True Current Housing: I Have Housing Concerned About Future Housing: Decline to Answer Difficulty Paying Gas/Electric Bills: Decline to Answer Difficulty Paying for Meds: Decline to Answer Currently Unemployed: Decline to Answer Education: Decline to Answer Difficulty w/ Childcare or Family Care: No Spiritual care concerns: No Meds Home Medications and Allergies Home Medications ?Medication ?Instructions ?Recorded ?Confirmed ?Type acetaminophen 500 mg tablet 500 mg PO Q6H PRN fever or pain 09/17/24 09/17/24 History (Tylenol Extra Strength) atorvastatin 40 mg tablet (Lipitor) 40 mg PO HS 09/17/24 09/17/24 History calcium 500 mg (as 1 tablet PO BID 09/17/24 09/17/24 History carbonate,gluconate)-vit D2 5 mcg (200 unit) tablet donepezil 5 mg tablet 5 mg PO HS 09/17/24 09/17/24 History levothyroxine 50 mcg capsule 50 mcg PO DAILY 09/17/24 09/17/24 History magnesium oxide 400 mg (241.3 mg 400 mg PO BID 09/17/24 09/17/24 History magnesium) tablet midodrine 10 mg tablet 10 mg PO TID 09/17/24 09/17/24 History pantoprazole 40 mg tablet,delayed 40 mg PO BID 09/17/24 09/17/24 History release sucralfate 1 gram tablet 1 g PO .COMPLEX 09/17/24 09/17/24 History vancomycin 1.75 gram intravenous 1.75 g IV Q24H For sepsis 09/17/24 09/18/24 History solution zinc oxide 10 % topical cream 1 applic topical BID 09/17/24 09/17/24 History amiodarone 200 mg tablet 200 mg PO DAILY 09/18/24 09/18/24 History balsam tato-castor oil topical 1 applic topical QAM 09/18/24 09/18/24 History ointment ceftriaxone 2 gram intravenous 2 g IV DAILY For sepsis. 09/18/24 09/18/24 History piggyback cholecalciferol (vitamin D3) 10 10 mcg PO DAILY 09/18/24 09/18/24 History mcg (400 unit) tablet (Vitamin D3) cyanocobalamin (vitamin B-12) 100 100 mcg PO DAILY 09/18/24 09/18/24 History mcg tablet empagliflozin 10 mg tablet 10 mg PO DAILY 09/18/24 09/18/24 History furosemide 20 mg tablet 20 mg PO DAILY 09/18/24 09/18/24 History insulin regular human 100 unit/mL See Rx Instructions subcut 09/18/24 09/18/24 History (3 mL) subcutaneous pen USEASDIRECTD multivitamin,tx-minerals 1 tablet PO DAILY 09/18/24 09/18/24 History mupirocin 2 % topical ointment 1 applic topical DAILY 09/18/24 09/18/24 History (Centany) potassium chloride 20 mEq 40 meq PO DAILY 09/18/24 09/18/24 History tablet,extended release (K-Tab) Allergies Allergy/AdvReac Type Severity Reaction Status Date / Time aspirin Allergy Unknown Unknown Verified 05/17/25 21:46 gabapentin Allergy Unknown Unknown Verified 09/17/24 21:46 metformin Allergy Unknown Unknown Verified 09/17/24 21:46 simvastatin Allergy Unknown Unknown Verified 09/17/24 21:46 Vital Signs Vital Signs - 24 hr 09/18/24 12:36 09/18/24 12:52 09/18/24 13:52 Temperature 36.4 C 36.4 C L 36.6 C Pulse Rate 73 75 72 Respiratory Rate 16 16 16 Blood Pressure 95/51 L 105/60 110/67 Pulse Oximetry 97 100 100 Oxygen Delivery 09/18/24 14:00 09/18/24 14:52 09/18/24 15:52 Temperature 36.4 C L 36.4 C L Pulse Rate 71 70 73 Respiratory Rate 17 18 Blood Pressure 123/76 121/74 Pulse Oximetry 100 100 Oxygen Delivery 09/18/24 16:00 09/18/24 16:00 09/18/24 18:00 Temperature 36.4 C L Pulse Rate 73 70 89 Respiratory Rate 18 Blood Pressure 121/74 Pulse Oximetry 100 Oxygen Delivery 09/18/24 20:00 09/18/24 20:00 09/18/24 20:00 Temperature 36.4 C Pulse Rate 81 78 Respiratory Rate 18 Blood Pressure 110/71 Pulse Oximetry 100 Oxygen Delivery Room Air 09/18/24 22:00 09/19/24 00:00 09/19/24 00:00 Temperature 36.4 C Pulse Rate 79 95 Respiratory Rate 18 Blood Pressure 115/66 Pulse Oximetry 100 Oxygen Delivery Room Air 09/19/24 00:00 09/19/24 02:00 09/19/24 04:00 Temperature Pulse Rate 88 79 Respiratory Rate Blood Pressure Pulse Oximetry Oxygen Delivery Room Air 09/19/24 04:00 09/19/24 04:24 09/19/24 06:00 Temperature 36.7 C Pulse Rate 79 88 96 Respiratory Rate 18 Blood Pressure 112/63 Pulse Oximetry 99 Oxygen Delivery 09/19/24 08:00 09/19/24 08:00 09/19/24 08:00 Temperature 36.9 C Pulse Rate 88 88 Respiratory Rate 18 Blood Pressure 129/68 Pulse Oximetry 96 Oxygen Delivery Room Air 09/19/24 10:00 09/19/24 12:00 Temperature Pulse Rate 74 Respiratory Rate Blood Pressure Pulse Oximetry Oxygen Delivery Room Air Exam Const: General: cooperative Resp: Effort & Inspection: normal respiratory effort Cardio: Rate: regular rate Rhythm: regular rhythm Urinary Catheter: Urinary Catheter: urine dark Results Labs 09/19/24 06:11 09/19/24 06:11 Labs: Short CBC 09/19/24 Range/Units 06:11 WBC 9.4 (4.5-10.0) K/mm3 Hgb 8.1 L (14.0-18.0) g/dL Hct 26.2 L (42.0-52.0) % Plt Count 106 L (150-375) k/mm3 [facility] 09/19/24 06:11 Sodium 134 L Potassium 3.8 Chloride 101 Carbon Dioxide 26 BUN 8 L Creatinine 0.56 L Glucose 120 H Calcium 8.1 L Liver Function 09/19/24 Range/Units 06:11 Total Bilirubin 1.6 H (0.2-1.3) mg/dL AST 19 (17-59) U/L ALT 13 (6-50) U/L Alkaline Phosphatase 116 (38-126) U/L Albumin 2.6 L (3.5-5.1) g/dL
--- NOTE | 2024-09-19 12:13 | WPDHPUPDATE1 ---
History and Physical Update Update Date/Time: 09/19/24 12:13 History and Physical has been reviewed, including an updated exam of the patient. There are NO changes in the patient's condition. Risks, benefits, and alternatives have been discussed and questions answered. Patient agrees to proceed with procedure. Proceed with cystoscopy with clot evacuation
[2024-09-19 12:33] LABS: Glucose Point of Care 143 mg/dl (65-105)
--- NOTE | 2024-09-19 13:37 | P.PNIM_ITS ---
Progress Note: A&P Assessment and Plan (1) Chest pain: Code(s): R07.9 - Chest pain, unspecified Status: Acute Assessment and Plan: Could be due to pulmonary edema and pleural effusions Troponins flat EKG shows sinus rhythm with left bundle branch block (2) Heart failure: Code(s): I50.9 - Heart failure, unspecified Status: Chronic Assessment and Plan: Acute on chronic, CT chest showed bilateral pleural effusion Started on Lasix 40mg IV bid Monitor (3) Pleural effusion: Code(s): J90 - Pleural effusion, not elsewhere classified Status: Acute Assessment and Plan: contineu above care (4) Decubitus ulcer: Code(s): L89.90 - Pressure ulcer of unspecified site, unspecified stage Status: Acute Assessment and Plan: Status post debridement and on long-term antibiotic Continue vancomycin Gen surgery following, awaiting hospice care decision for plan of care (5) Pneumonia: Code(s): J18.9 - Pneumonia, unspecified organism Status: Acute Assessment and Plan: Ct chest showed bilateral patchy infiltrates On Levaquin MRSA negative monitor cultures (6) Bladder mass: Code(s): N32.89 - Other specified disorders of bladder Status: Acute Assessment and Plan: Family does not want aggressive measures urology consulted regardless (7) Failure to thrive: Status: Chronic Assessment and Plan: Family will meet with hospice today and discuss hospice care and possibel transition (8) BPH (benign prostatic hyperplasia): Code(s): N40.0 - Benign prostatic hyperplasia without lower urinary tract symptoms Status: Acute (9) Type 2 diabetes mellitus: Code(s): E11.9 - Type 2 diabetes mellitus without complications Status: Chronic Assessment and Plan: Mone ARMENTA (10) Hypothyroidism: Code(s): E03.9 - Hypothyroidism, unspecified Status: Acute Assessment and Plan: Waiting on med rec to be completed Plan Severe anemia Hb 8.1, s/p 1 unit pRBC monitor h and h DVT prophylaxis on SCDs, no AC due to possible GI bleed Awaitign outcome of meeting between family and hospice for goals of care Subjective Date/time seen: 09/19/24 13:37 Interval history: Comfortable at bedside Family is meeting with hospice today and will decisions after the meeting Review of Systems Review of Systems: ROS unobtainable: Yes unobtainable due to mental status Exam Narrative: General: Chronically ill-appearing HEENT: normocephalic, atraumatic. Mucous membranes moist. EOMI, PERRLA, b ilateral sclera anicteric, no conjunctival injection. Neck supple without JVD, lymphadenopathy, or bruit. Respiratory: clear to ascultation bilaterally. No rales/rhonic/wheezes. Cardiovascular: Regular rate and rhythm, normal S1-S2 upon ascultation. No murmurs, rubs, or clicks. PMI is nondisplaced, capillary refill less than 3 second. Abdomen: Soft, round, no pulsatile masses, nondistended and nontender. No rebound, no guarding. No CVA tenderness, no hepatosplenomegaly. Bowel sounds present to all four quadrants. No high pitch or tinkling sounds, resonant to percussion. Extremities: No cyanosis, clubbing, Pulses are palpable 2/2. Upper lower extremity edema 2 to 3+ Neuro: Alert and orientated x 4. PERRLA. Cranial nerves 2-12 intact without focal deficit. Skin: Warm, dry, and intact, without rash, erythema, or lesion. Psych: pleasant, cooperative, normal speech, normal affect, no hallucinations, no dysarthia Heel ulcers Coccyx ulcer status post debridement Chronic Barros Objective Data Vital Signs Vital Signs: Vital Signs - 24 hr 09/18/24 13:52 09/18/24 14:00 09/18/24 14:52 Temperature 97.8 F 97.5 F L Pulse Rate 72 71 70 Respiratory Rate 16 17 Blood Pressure 110/67 123/76 Pulse Oximetry 100 100 Oxygen Delivery 09/18/24 15:52 09/18/24 16:00 09/18/24 16:00 Temperature 97.5 F L 97.5 F L Pulse Rate 73 73 70 Respiratory Rate 18 18 Blood Pressure 121/74 121/74 Pulse Oximetry 100 100 Oxygen Delivery 09/18/24 18:00 09/18/24 20:00 09/18/24 20:00 Temperature 97.6 F Pulse Rate 89 81 Respiratory Rate 18 Blood Pressure 110/71 Pulse Oximetry 100 Oxygen Delivery Room Air 09/18/24 20:00 09/18/24 22:00 09/19/24 00:00 Temperature 97.6 F Pulse Rate 78 79 95 Respiratory Rate 18 Blood Pressure 115/66 Pulse Oximetry 100 Oxygen Delivery 09/19/24 00:00 09/19/24 00:00 09/19/24 02:00 Temperature Pulse Rate 88 79 Respiratory Rate Blood Pressure Pulse Oximetry Oxygen Delivery Room Air 09/19/24 04:00 09/19/24 04:00 09/19/24 04:24 Temperature 98.0 F Pulse Rate 79 88 Respiratory Rate 18 Blood Pressure 112/63 Pulse Oximetry 99 Oxygen Delivery Room Air 09/19/24 06:00 09/19/24 08:00 09/19/24 08:00 Temperature 98.5 F Pulse Rate 96 88 Respiratory Rate 18 Blood Pressure 129/68 Pulse Oximetry 96 Oxygen Delivery Room Air 09/19/24 08:00 09/19/24 10:00 09/19/24 12:00 Temperature Pulse Rate 88 74 Respiratory Rate Blood Pressure Pulse Oximetry Oxygen Delivery Room Air 09/19/24 12:00 09/19/24 12:00 Temperature 97.2 F L Pulse Rate 77 64 Respiratory Rate 28 H Blood Pressure 117/48 L Pulse Oximetry 99 Oxygen Delivery Intake/Output Intake/Output: Intake & Output 09/16/24 09/17/24 09/18/24 09/19/24 23:59 23:59 23:59 23:59 Intake Total 1830 910 Output Total 250 2260 1000 Balance -250 -430 -90 Meds/Results Medications: Active Medications Generic Name Dose Route Start Last Admin Trade Name Freq PRN Reason Stop Dose Admin Acetaminophen 650 mg 09/17/24 17:27 Acetaminophen 325 Mg Tablet PO Q4H PRN Mild Pain (1-3) or Fever Hydrocodone Bitart/Acetaminophen 1 tab 09/17/24 17:27 09/19/24 06:50 Hydrocodone/Acetaminophen (*Crx) 5-325 Mg Tablet PO 1 tab Q4H PRN Administration Pain Rated 4-6 Alteplase, Recombinant 2 mg 09/18/24 11:12 09/18/24 11:37 Alteplase 2 Mg Vial (Cathflo) IV PUSH 2 mg ONCE PRN Administration Line Occlusion Dextrose 12.5 gm 09/18/24 00:04 Dextrose 50% 25 Gm/50 Ml Syringe IV PUSH PRN PRN Hypoglycemia Protocol Enoxaparin Sodium 40 mg 09/18/24 09:00 09/18/24 10:15 Enoxaparin 40 Mg/0.4 Ml Syringe SUB-Q Not Given DAILY JESSICA Furosemide 40 mg 09/18/24 17:00 09/19/24 10:00 Furosemide Inj 40 Mg/4 Ml Vial IV PUSH 40 mg BID JESSICA Administration Glucagon 1 mg 09/18/24 00:04 Glucagon For Inj 1 Mg Vial IM PRN PRN Hypoglycemia Protocol Glucose 15 gm 09/18/24 00:04 Glucose Oral Gel 15 Gm Of Glucse In 37.5 Gm Tube PO PRN PRN Hypoglycemia Protocol Dextrose 1,000 mls @ 100 mls/hr 09/18/24 00:04 Dextrose 5% 1,000 Ml IVPB PRN PRN Hypoglycemia Protocol Levofloxacin/Dextrose 750 mg in 150 mls @ 100 mls/hr 09/18/24 09:00 09/19/24 10:00 Levaquin 750 Mg/D5w 150 Ml IVPB 100 mls/hr Q24H JESSICA Administration Insulin Aspart 2 - 5 units 09/18/24 08:00 09/19/24 09:59 Insulin Aspart (*Bkc) 100 Units/Ml SUB-Q Not Given TIDWM [facility] Protocol Miscellaneous Information 1 each 09/19/24 00:01 Please Enter Patient Height For Medication Dosing XX 10/19/24 00:00 CLARIFY JESSICA Ondansetron HCl 4 mg 09/17/24 17:27 Ondansetron Inj 4 Mg/2 Ml Vial IV PUSH Q4H PRN Nausea Perflutren Lipid Microsphere 0 ml 09/18/24 08:04 Perflutren Lipid Microspheres 1.5 Ml Vial Diluted To 10 Ml Total Volume IV PUSH 09/21/24 08:04 ONCE PRN adequate visualization Protocol Sodium Chloride 10 ml 09/18/24 14:00 09/19/24 06:07 Central Line Flush IV PUSH 10 ml Q8HR JESSICA Administration Sodium Chloride 10 ml 09/18/24 08:34 Central Line Flush IV PUSH PRN PRN with TPN bag changes Sodium Chloride 20 ml 09/18/24 08:34 Central Line Flush IV PUSH PRN PRN after blood draws Radiology Results: ITS Impressions Chest X-Ray 09/17/24 12:58 IMPRESSION: 1. Moderate-sized right and small left pleural effusions with associated atelectasis and/or pneumonia in the lower lung zones. Chest/Abdomen/Pelvis CTA 09/17/24 14:43 IMPRESSION: CHEST: 1. Large bilateral pleural effusion more on the right side with adjacent atelectasis. 2. No pulmonary embolism. 3. Multiple patchy groundglass opacities in the left upper lobe suggestive of pneumonia. ABDOMEN/PELVIS: 1. No evidence of appendicitis, diverticulitis or intestinal obstruction. 2. Fluid seen in the pelvis and left paracolic gutter. Clinical correlation and follow-up advised. 3. Hyperdense area in the right side of the urinary bladder. Cystoscopy is advised. The differential include hematoma versus stones versus mass. 4. Bilateral renal cysts with the largest in the left kidney midpole. 5. Atrophic pancreas. Labs Labs: Laboratory Results - last 24 hr 09/18/24 09/18/24 09/18/24 10:05 16:45 20:39 WBC RBC Hgb Hct MCV MCH MCHC RDW Plt Count MPV Immature Gran % (Auto) Neut % (Auto) Lymph % (Auto) Smith % (Auto) Eos % (Auto) Baso % (Auto) Lymph # (Auto) Smith # (Auto) Eos # (Auto) Baso # (Auto) Abs Immat Gran (auto) Absolute Neuts (auto) Absolute Nucleated RBC Nucleated RBC % % Immature Plt Fraction Sodium Potassium Chloride Carbon Dioxide Anion Gap BUN Creatinine Estim Creat Clear Calc Estimated GFR Glucose POC Capillary Glucose 101 127 H Calcium Magnesium Total Bilirubin AST ALT Alkaline Phosphatase Total Protein Albumin Crossmatch See Detail 09/19/24 09/19/24 09/19/24 06:11 08:28 11:23 WBC 9.4 RBC 2.70 L Hgb 8.1 L Hct 26.2 L MCV 97.0 MCH 30.0 MCHC 30.9 L RDW 20.2 H Plt Count 106 L MPV 11.3 H Immature Gran % (Auto) 1.8 H Neut % (Auto) 83.7 H Lymph % (Auto) 6.7 L Smith % (Auto) 6.6 Eos % (Auto) 0.7 Baso % (Auto) 0.5 Lymph # (Auto) 0.63 L Smith # (Auto) 0.6 Eos # (Auto) 0.1 Baso # (Auto) 0.1 Abs Immat Gran (auto) 0.17 H Absolute Neuts (auto) 7.8 H Absolute Nucleated RBC 0.000 Nucleated RBC % 0.0 % Immature Plt Fraction 7.8 Sodium 134 L Potassium 3.8 Chloride 101 Carbon Dioxide 26 Anion Gap 7 BUN 8 L Creatinine 0.56 L Estim Creat Clear Calc Not Reportable Estimated GFR > 60 Glucose 120 H POC Capillary Glucose 130 H 143 H Calcium 8.1 L Magnesium 1.5 L Total Bilirubin 1.6 H AST 19 ALT 13 Alkaline Phosphatase 116 Total Protein 6.0 L Albumin 2.6 L Crossmatch Quality VTE Prophylaxis VTE prophylaxis: mechanical ordered
--- NOTE | 2024-09-19 14:26 | P.CDI_ITS ---
CDI Query Clarification Request Please specify type of heart failure if known. * Systolic * Diastolic * Combined Systolic and Diastolic * Unknown The medical chart reflects the followin) Heart failure: Code(s): I50.9 - Heart failure, unspecified Status: Chronic Assessment and Plan: Acute on chronic, CT chest showed bilateral pleural effusion Started on Lasix 40mg IV bid Monitor BNP 517: 16,300 Lasix 40 mg IV BID <Shaneka Hancock RN - Last Filed: 09/19/24 14:28> Clarified Diagnosis Clarified Diagnosis: * Systolic CHF <Lorie Puckett MD - Last Filed: 09/19/24 14:38>
[2024-09-19 16:54] LABS: Glucose Point of Care 121 mg/dl (65-105)
[2024-09-20] MEDS: CENTRAL LINE FLUSH 10 ML IV PUSH (06:29)
[2024-09-20 07:53] LABS: Glucose Point of Care 107 mg/dl (65-105)
[2024-09-20 08:00] VITALS: BP 119/97; PULSE 107; RESP 16; TEMP 36.7
--- NOTE | 2024-09-20 08:51 | P.PNIM_ITS ---
Progress Note: A&P Assessment and Plan (1) Chest pain: Code(s): R07.9 - Chest pain, unspecified Status: Acute Assessment and Plan: Could be due to pulmonary edema and pleural effusions Troponins flat EKG shows sinus rhythm with left bundle branch block (2) Heart failure: Code(s): I50.9 - Heart failure, unspecified Status: Chronic Assessment and Plan: Acute on chronic, CT chest showed bilateral pleural effusion Started on Lasix 40mg IV bid Monitor (3) Pleural effusion: Code(s): J90 - Pleural effusion, not elsewhere classified Status: Acute Assessment and Plan: contineu above care (4) Decubitus ulcer: Code(s): L89.90 - Pressure ulcer of unspecified site, unspecified stage Status: Acute Assessment and Plan: Status post debridement and on long-term antibiotic Continue vancomycin Gen surgery following, awaiting hospice care decision for plan of care (5) Pneumonia: Code(s): J18.9 - Pneumonia, unspecified organism Status: Acute Assessment and Plan: Ct chest showed bilateral patchy infiltrates On Levaquin MRSA negative monitor cultures (6) Bladder mass: Code(s): N32.89 - Other specified disorders of bladder Status: Acute Assessment and Plan: Family does not want aggressive measures urology consulted regardless (7) Failure to thrive: Status: Chronic Assessment and Plan: Family will meet with hospice today and discuss hospice care and possibel transition (8) BPH (benign prostatic hyperplasia): Code(s): N40.0 - Benign prostatic hyperplasia without lower urinary tract symptoms Status: Acute (9) Type 2 diabetes mellitus: Code(s): E11.9 - Type 2 diabetes mellitus without complications Status: Chronic Assessment and Plan: Mone ARMENTA (10) Hypothyroidism: Code(s): E03.9 - Hypothyroidism, unspecified Status: Acute Assessment and Plan: Waiting on med rec to be completed Plan Severe anemia Hb 8.1, s/p 1 unit pRBC monitor h and h DVT prophylaxis on SCDs, no AC due to possible GI bleed Awaitign outcome of meeting between family and hospice for goals of care Subjective Date/time seen: 09/20/24 08:51 Interval history: Comfortable at bedside. Discussed with his step daughter who is POA who doesnt want any aggressive measure and wants hospice evaluation. Pending Hospice evaluation. Review of Systems Review of Systems: ROS unobtainable: Yes unobtainable due to mental status Exam Narrative: General: Chronically ill-appearing HEENT: normocephalic, atraumatic. Mucous membranes moist. EOMI, PERRLA, bilateral sclera anicteric, no conjunctival injection. Neck supple without JVD, lymphadenopathy, or bruit. Respiratory: clear to ascultation bilaterally. No rales/rhonic/wheezes. Cardiovascular: Regular rate and rhythm, normal S1-S2 upon ascultation. No murmurs, rubs, or clicks. PMI is nondisplaced, capillary refill less than 3 sec ond. Abdomen: Soft, round, no pulsatile masses, nondistended and nontender. No rebound, no guarding. No CVA tenderness, no hepatosplenomegaly. Bowel sounds present to all four quadrants. No high pitch or tinkling sounds, resonant to percussion. Extremities: No cyanosis, clubbing, Pulses are palpable 2/2. Upper lower extremity edema 2 to 3+ Neuro: Alert and orientated x 4. PERRLA. Cranial nerves 2-12 intact without focal deficit. Skin: Warm, dry, and intact, without rash, erythema, or lesion. Psych: pleasant, cooperative, normal speech, normal affect, no hallucinations, no dysarthia Heel ulcers Coccyx ulcer status post debridement Chronic Barros Objective Data Vital Signs Vital Signs: Vital Signs - 24 hr 09/19/24 10:00 09/19/24 12:00 09/19/24 12:00 Temperature Pulse Rate 74 77 Respiratory Rate Blood Pressure Pulse Oximetry Oxygen Delivery Room Air Fraction of Inspired Oxygen 09/19/24 12:00 09/19/24 16:00 09/19/24 16:00 Temperature 97.2 F L 97.9 F Pulse Rate 64 83 Respiratory Rate 28 H 22 H Blood Pressure 117/48 L 104/63 Pulse Oximetry 99 99 Oxygen Delivery Room Air Fraction of Inspired Oxygen 09/19/24 20:00 09/19/24 20:00 09/19/24 20:54 Temperature 98.0 F Pulse Rate 82 82 Respiratory Rate 22 H 22 H Blood Pressure 116/80 Pulse Oximetry 100 100 100 Oxygen Delivery Room Air Room Air Fraction of Inspired Oxygen 21 21 09/20/24 08:00 Temperature 98.1 F Pulse Rate 107 H Respiratory Rate 16 Blood Pressure 119/97 H Pulse Oximetry Oxygen Delivery Fraction of Inspired Oxygen Intake/Output Intake/Output: Intake & Output 09/17/24 09/18/24 09/19/24 09/20/24 23:59 23:59 23:59 23:59 Intake Total 1830 2000 360 Output Total 250 2260 1350 1000 Balance -250 -430 650 -640 Meds/Results Medications: Active Medications Generic Name Dose Route Start Last Admin Trade Name Freq PRN Reason Stop Dose Admin Acetaminophen 650 mg 09/17/24 17:27 Acetaminophen 325 Mg Tablet PO Q4H PRN Mild Pain (1-3) or Fever Hydrocodone Bitart/Acetaminophen 1 tab 09/17/24 17:27 09/19/24 20:23 Hydrocodone/Acetaminophen (*Crx) 5-325 Mg Tablet PO 1 tab Q4H PRN Administration Pain Rated 4-6 Alteplase, Recombinant 2 mg 09/18/24 11:12 09/18/24 11:37 Alteplase 2 Mg Vial (Cathflo) IV PUSH 2 mg ONCE PRN Administration Line Occlusion Dextrose 12.5 gm 09/18/24 00:04 Dextrose 50% 25 Gm/50 Ml Syringe IV PUSH PRN PRN Hypoglycemia Protocol Enoxaparin Sodium 40 mg 09/18/24 09:00 09/18/24 10:15 Enoxaparin 40 Mg/0.4 Ml Syringe SUB-Q Not Given DAILY JESSICA Furosemide 40 mg 09/18/24 17:00 09/19/24 17:25 Furosemide Inj 40 Mg/4 Ml Vial IV PUSH 40 mg BID JESSICA Administration Glucagon 1 mg 09/18/24 00:04 Glucagon For Inj 1 Mg Vial IM PRN PRN Hypoglycemia Protocol Glucose 15 gm 09/18/24 00:04 Glucose Oral Gel 15 Gm Of Glucse In 37.5 Gm Tube PO PRN PRN Hypoglycemia Protocol Dextrose 1,000 mls @ 100 mls/hr 09/18/24 00:04 Dextrose 5% 1,000 Ml IVPB PRN PRN Hypoglycemia Protocol Levofloxacin/Dextrose 750 mg in 150 mls @ 100 mls/hr 09/18/24 09:00 09/19/24 11:30 Levaquin 750 Mg/D5w 150 Ml IVPB Infused Q24H JESSICA Infusion Insulin Aspart 2 - 5 units 09/18/24 08:00 09/19/24 17:13 Insulin Aspart (*Bkc) 100 Units/Ml SUB-Q Not Given [facility] Protocol Miscellaneous Information 1 each 09/19/24 00:01 09/19/24 21:25 Please Enter Patient Height For Medication Dosing XX 10/19/24 00:00 Not Given CLARIFY JESSICA Ondansetron HCl 4 mg 09/17/24 17:27 Ondansetron Inj 4 Mg/2 Ml Vial IV PUSH Q4H PRN Nausea Perflutren Lipid Microsphere 0 ml 09/18/24 08:04 Perflutren Lipid Microspheres 1.5 Ml Vial Diluted To 10 Ml Total Volume IV PUSH 09/21/24 08:04 ONCE PRN adequate visualization Protocol Sodium Chloride 10 ml 09/18/24 14:00 09/20/24 06:29 Central Line Flush IV PUSH 10 ml Q8HR JESSICA Administration Sodium Chloride 10 ml 09/18/24 08:34 Central Line Flush IV PUSH PRN PRN with TPN bag changes Sodium Chloride 20 ml 09/18/24 08:34 Central Line Flush IV PUSH PRN PRN after blood draws Radiology Results: ITS Impressions Chest X-Ray 09/17/24 12:58 IMPRESSION: 1. Moderate-sized right and small left pleural effusions with associated atelectasis and/or pneumonia in the lower lung zones. Chest/Abdomen/Pelvis CTA 09/17/24 14:43 IMPRESSION: CHEST: 1. Large bilateral pleural effusion more on the right side with adjacent atelectasis. 2. No pulmonary embolism. 3. Multiple patchy groundglass opacities in the left upper lobe suggestive of pneumonia. ABDOMEN/PELVIS: 1. No evidence of appendicitis, diverticulitis or intestinal obstruction. 2. Fluid seen in the pelvis and left paracolic gutter. Clinical correlation and follow-up advised. 3. Hyperdense area in the right side of the urinary bladder. Cystoscopy is advised. The differential include hematoma versus stones versus mass. 4. Bilateral renal cysts with the largest in the left kidney midpole. 5. Atrophic pancreas. Labs Labs: Laboratory Results - last 24 hr 09/19/24 09/19/24 09/20/24 11:23 16:34 07:32 POC Capillary Glucose 143 H 121 H 107 H Quality VTE Prophylaxis VTE prophylaxis: mechanical ordered Hospitalist [facility] Advance Care Plan I have confirmed that the patient's Advanced Care Plan is present, code status is documented, or surrogate decision maker is listed in patient medical record.: Yes Medication Reconciliation I have utilized all available resources to obtain, update and review the patients current medications (includes all prescriptions, OTC, herbals, cannabis, and nutritional supplements).: Yes
[2024-09-20] MEDS: MAGNESIUM SULF 2 GM/WATER 50ML 2 GM/50 ML BAG IVPB (10:24)
[2024-09-20] MEDS: FUROSEMIDE INJ 40 MG/4 ML VIAL IV PUSH (10:26)
[2024-09-20] MEDS: levoFLOXacin 750 MG/D5W 150 ML 750 MG/150 ML BAG 150 MG IVPB (10:26)
[2024-09-20 10:51] LABS: Hematocrit 23.2 % (42.0-52.0); Hemoglobin 7.3 g/dL (14.0-18.0); Immature Platelet Fraction Pct 8.9 % (0.9-11.2); Mean Corpuscular HGB Conc 31.5 g/dl (32-36); Mean Corpuscular Volume 95.5 fl (80-100); Mean Platelet Volume 11.7 fl (7.4-10.4); Platelet Count Result 96 k/mm3 (150-375); Red Blood Count 2.43 M/mm3 (4.6-6.20); Red Cell Distribution Width 19.9 % (11.5-14.5); White Blood Count 10.6 K/mm3 (4.5-10.0)
[2024-09-20 10:59] LABS: Alanine Aminotransferase 14 U/L (6-50); Albumin Level 2.4 g/dL (3.5-5.1); Alkaline Phosphatase 120 U/L (38-126); Anion Gap 3 mmol/L (4-12); Aspartate Amino Transferase 24 U/L (17-59); Bilirubin,Total 1.2 mg/dL (0.2-1.3); Blood Urea Nitrogen 7 mg/dL (9-20); Calcium 7.9 mg/dL (8.4-10.2); Carbon Dioxide 31 mmol/L (22-30); Chloride 96 mmol/L (98-107); Estimated CRCL calculation 81 ml/min; Estimated Glomerular Filt Rate > 60; Glucose 123 mg/dL (65-110); Potassium 3.3 mmol/L (3.4-5.0); Sodium 130 mmol/L (137-145)
[2024-09-20 11:47] LABS: Glucose Point of Care 138 mg/dl (65-105)
[2024-09-20] MEDS: HYDROcodone/acetaminophen (*CRX) 5-325 MG TABLET 1 TAB PO (12:39)
--- NOTE | 2024-09-20 15:13 | P.DS_ITS ---
DS: Admitting Diagnosis Discharge Date 09/20/2024 Admitting Diagnosis Chest DS: Discharge Diagnosis Discharge Diagnosis (1) Chest pain: Code(s): R07.9 - Chest pain, unspecified Status: Acute Assessment and Plan: Could be due to pulmonary edema and pleural effusions Troponins flat EKG shows sinus rhythm with left bundle branch block (2) Heart failure: Code(s): I50.9 - Heart failure, unspecified Status: Chronic Assessment and Plan: Acute on chronic, CT chest showed bilateral pleural effusion Started on Lasix 40mg IV bid Monitor (3) Pleural effusion: Code(s): J90 - Pleural effusion, not elsewhere classified Status: Acute Assessment and Plan: contineu above care (4) Decubitus ulcer: Code(s): L89.90 - Pressure ulcer of unspecified site, unspecified stage Status: Acute Assessment and Plan: Status post debridement and on long-term antibiotic Continue vancomycin Gen surgery following, awaiting hospice care decision for plan of care (5) Pneumonia: Code(s): J18.9 - Pneumonia, unspecified organism Status: Acute Assessment and Plan: Ct chest showed bilateral patchy infiltrates On Levaquin MRSA negative monitor cultures (6) Bladder mass: Code(s): N32.89 - Other specified disorders of bladder Status: Acute Assessment and Plan: Family does not want aggressive measures urology consulted regardless (7) Failure to thrive: Status: Chronic Assessment and Plan: Family will meet with hospice today and discuss hospice care and possibel transition (8) BPH (benign prostatic hyperplasia): Code(s): N40.0 - Benign prostatic hyperplasia without lower urinary tract symptoms Status: Acute (9) Type 2 diabetes mellitus: Code(s): E11.9 - Type 2 diabetes mellitus without complications Status: Chronic Assessment and Plan: Mone ARMENTA (10) Hypothyroidism: Code(s): E03.9 - Hypothyroidism, unspecified Status: Acute Assessment and Plan: Waiting on med rec to be completed Plan Severe anemia Hb 8.1, s/p 1 unit pRBC monitor h and h DVT prophylaxis on SCDs, no AC due to possible GI bleed Admitted under hospice DS: Summary Hospital Course Hospital Course: 79-year-old male past medical history of dementia, decubitus ulcer status post debridement on long-term IV antibiotics, CHF, presents the hospital with chest pain. HPI is extremely limited as patient has dementia and is from a senior care. In the ED patient has leukocytosis at 10.8, anemia at 7.8, sodium of 132, BUN is 7, creatinine of 0.54, calcium of 8.0, alkaline phos of 153, troponin [place] flat [place] 0.02[place] [address], albumin of 2.5. CT abdomen chest pelvis shows large bilateral pleural effusions no PE, left upper lobe pneumonia, fluid the pelvis in left pericolic gutter, hyperdensity in the right side of bladder, renal cysts, and atrophic pancreas. Assumed care on 09/20/2024 When I assumed care patient was already on hospice and requested for discharge under hospice. I discussed the with his stepdaughter who is the power of staff certified nurse midwife who wanted his father not to undergo any more aggressive measures. Status at Discharge Cognitive/behavioral status at discharge: Guarded Time Spent with Patient Time attestation: Total time spent providing and/or coordinating discharge services: 45 minutes Exam Narrative: General: Chronically ill-appearing HEENT: normocephalic, atraumatic. Mucous membranes moist. EOMI, PERRLA, bilateral sclera anicteric, no conjunctival injection. Neck supple without JVD, lymphadenopathy, or bruit. Respiratory: clear to ascultation bilaterally. No rales/rhonic/wheezes. Cardiovascular: Regular rate and rhythm, normal S1-S2 upon ascultation. No murmurs, rubs, or clicks. PMI is nondisplaced, capillary refill less than 3 second. Abdomen: Soft, round, no pulsatile masses, nondistended and nontender. No rebound, no guarding. No CVA tenderness, no hepatosplenomegaly. Bowel sounds present to all four quadrants. No high pitch or tinkling sounds, resonant to percussion. Extremities: No cyanosis, clubbing, Pulses are palpable 2/2. Upper lower extremity edema 2 to 3+ Neuro: Alert and orientated x 4. PERRLA. Cranial nerves 2-12 intact without focal deficit. Skin: Warm, dry, and intact, without rash, erythema, or lesion. Psych: pleasant, cooperative, normal speech, normal affect, no hallucinations, no dysarthia Heel ulcers Coccyx ulcer status post debridement Chronic Barros DS: Data Data Completed and Pending Labs on day of discharge: Labs from last 24 hours 09/20/24 09/20/24 09/20/24 11:34 10:29 07:32 WBC 10.6 H RBC 2.43 L Hgb 7.3 L Hct 23.2 L MCV 95.5 MCH 30.0 MCHC 31.5 L RDW 19.9 H Plt Count 96 L MPV 11.7 H % Immature Plt Fraction 8.9 Sodium 130 L Potassium 3.3 L Chloride 96 L Carbon Dioxide 31 H Anion Gap 3 L BUN 7 L Creatinine 0.59 L Estim Creat Clear Calc 81 Estimated GFR > 60 Glucose 123 H POC Capillary Glucose 138 H 107 H Calcium 7.9 L Total Bilirubin 1.2 AST 24 ALT 14 Alkaline Phosphatase 120 Total Protein 5.0 L Albumin 2.4 L 09/19/24 16:34 WBC RBC Hgb Hct MCV MCH MCHC RDW Plt Count MPV % Immature Plt Fraction Sodium Potassium Chloride Carbon Dioxide Anion Gap BUN Creatinine Estim Creat Clear Calc Estimated GFR Glucose POC Capillary Glucose 121 H Calcium Total Bilirubin AST ALT Alkaline Phosphatase Total Protein Albumin Preliminary micro results at discharge 09/18/24 04:16 Blood Culture - Preliminary Blood 09/18/24 04:16 Blood Culture - Preliminary Blood Discharge Plan Discharge Attending physician on discharge: Jorge Munguia Consulting providers: Jett Juan; Denton Goins Discharging Clinician: Jorge Munguia Patient Disposition: Hospice - Home Activity: as tolerated Diet: as tolerated Discharge Instructions: Discharged under hospice Medication reconciliation under hospice Patient Instructions: Heart Failure (DC), Chest Pain (DC), Barros Catheter Placement and Care (DC), Pleural Effusion (DC), Pneumonia (DC), PICC (Peripherally Inserted Central Catheter) (DC) Patient Language: Portuguese Stand Alone Forms: General Discharge Information Discharge Medications: New levofloxacin 750 mg tablet 750 mg PO DAILY Qty: 5 0RF Rx Instructions: Please complete the course on 09/24 Continued levothyroxine 50 mcg capsule 50 mcg PO DAILY zinc oxide 10 % cream 1 applic topical BID Rx Instructions: Apply to buttocks and scrotum topically twice daily. acetaminophen [Tylenol Extra Strength] 500 mg tablet 500 mg PO Q6H PRN (Reason: fever or pain) donepezil 5 mg tablet 5 mg PO HS atorvastatin [Lipitor] 40 mg tablet 40 mg PO HS midodrine 10 mg tablet 10 mg PO TID Rx Instructions: do not give last dose of day after 6PM or within 4 hrs of bedtime sucralfate 1 gram tablet 1 g PO .COMPLEX Rx Instructions: 1 tablet by mouth before meals and at bedtime. pantoprazole 40 mg tablet,delayed release (DR/EC) 40 mg PO BID calcium carb,glucon-vitamin D2 500 mg-5 mcg (200 unit) tablet 1 tablet PO BID magnesium oxide 400 mg (241.3 mg magnesium) tablet 400 mg PO BID potassium chloride [K-Tab] 20 mEq tablet extended release 40 meq PO DAILY cholecalciferol (vitamin D3) [Vitamin D3] 10 mcg (400 unit) tablet 10 mcg PO DAILY furosemide 20 mg tablet 20 mg PO DAILY empagliflozin 10 mg tablet 10 mg PO DAILY multivitamin,tx-minerals Tablet 1 tablet PO DAILY amiodarone 200 mg tablet 200 mg PO DAILY mupirocin [Centany] 2 % ointment 1 applic topical DAILY Rx Instructions: Apply to posterior head topically one time daily for wound cleanse. Apply mupirocin then cover with a dry dressing. cyanocobalamin (vitamin B-12) 100 mcg tablet 100 mcg PO DAILY balsam tato-castor oil Ointment 1 applic topical QAM Rx Instructions: Apply to sacrum topically every morning for wound care. insulin regular human 100 unit/mL (3 mL) insulin pen See Rx Instructions subcut USEASDIRECTD Rx Instructions: If blood sugar is 150-249 = Give 2 units; 250-349 = Give 4 units; 350-449 = Give 6 units; subcutaneously use as directed; Discontinued vancomycin 1.75 gram recon soln 1.75 g IV Q24H Rx Instructions: x 27 days-(09/08/24 to 10/05/24) ceftriaxone 2 gram piggyback 2 g IV DAILY Rx Instructions: x 29 days-(09/08/24 to 10/07/24). Date of admission: 09/18/24 08:40 Primary Care Provider: PHYSICIAN NOT ON STAFF,NONSTAFF Admitting Provider: Lorie Puckett Attending physician on admission: Snuil Castellanos Condition: Guarded Prognosis
[2024-09-20 16:00] VITALS: BP 109/64; PULSE 76; RESP 20; TEMP 36.4; O2SAT 100
[2024-09-20 16:54] LABS: Influenza A QL RT-PCR Negative (Negative); Influenza B QL RT-PCR Negative (Negative); RSV RNA, RT-PCR Negative (Negative); SARS-CoV-2 RNA PCR Negative (Negative)
== END 2024-09-20 17:12 | disposition hospice, home (50) | DRG 291 ==
LOC: ANHED 18:23 → ANHIMU 20:02
PROVIDERS: Internal Medicine; Nurse Practitioner Gerontology; Admitting Provider Internal Medicine; Emergency Provider Emergency Medicine; Visit Provider General Practice
DX: I50.23 Acute on chronic systolic (congestive) heart failure (principal); J18.9 Pneumonia, unspecified organism; L89.154 Pressure ulcer of sacral region, stage 4; J90 Pleural effusion, not elsewhere classified; E11.9 Type 2 diabetes mellitus without complications; E03.9 Hypothyroidism, unspecified; E78.00 Pure hypercholesterolemia, unspecified; N40.0 Benign prostatic hyperplasia without lower urinary tract symptoms; F03.90 Unspecified dementia, unspecified severity, without behavioral disturbance, psychotic disturbance, mood disturbance, and anxiety; D64.9 Anemia, unspecified; N32.89 Other specified disorders of bladder; R62.7 Adult failure to thrive; Z51.5 Encounter for palliative care; Z68.29 Body mass index [BMI] 29.0-29.9, adult; Z86.73 Personal history of transient ischemic attack (TIA), and cerebral infarction without residual deficits
CPT/HCPCS: 36415; 36430; 71275; 74177; 80048; 80053; 81001; 82948; 83735; 83880; 84484; 85025; 85027; 85055; 85610; 85730; 86850; 86900; 86901; 86923; 87040; 87637; 87641; 93005; 93306; 96374; 96375; 99285; A9270; G0378; J0612; J1938; J1956; J2997; J3475; J3480; J7040; J7050; P9016; P9047; Q9967